=== PATIENT | female | born 1955 | race Caucasian/White ===

== ENCOUNTER 2018-11-16 16:20 | Emergency (ER) | payer MEDICARE ==
[2018-11-16] MEDS ORDERED: BENADRYL 50 MG/ML ONE (16:22)
[2018-11-16] MEDS ORDERED: Sodium Chloride 0.9% 1000 ML 1,000 ML ONE (16:22)
[2018-11-16] MEDS ORDERED: solu-MEDROL 125 MG ONE ×2 (16:22→19:54)
[2018-11-16] MEDS ORDERED: Racepinephrine INH Solution 2.25% IH ONE ×2 (16:23→16:24)
[2018-11-16] MEDS ORDERED: solu-MEDROL 125 MG IV ONE ×2 (16:24→19:45)
[2018-11-16] MEDS ORDERED: Sodium Chloride 3 ML UD NEBULES IH ONE (16:24)
[2018-11-16] MEDS ORDERED: BENADRYL 50 MG/ML IV ONE ×2 (16:24→16:42)
--- NOTE | 2018-11-16 16:28 | ERPHSYRPT ---
- History of Present Illness Source: patient Timing/Duration: today (15 minutes prior to arrival) Severity: moderate Modifying Factors: Improves With: nothing Associated Symptoms: other (tightness in throat), No nausea, No vomiting, No abdominal pain, No shortness of breath, No heartburn, No diaphoresis, No cough, No chills, No chest pain, No fever, No headaches, No loss of appetite, No malaise, No rash, No syncope, No seizure, No weakness Hx Tetanus, Diphtheria Vaccination/Date Given: Yes Hx Influenza Vaccination/Date Given: No Hx Pneumococcal Vaccination/Date Given: No <MAGGI MCDANIEL - Last Filed: 11/16/18 18:58> <ROGERIO NICHOLS - Last Filed: 11/16/18 20:35> - History of Present Illness Time Seen by Provider: 11/16/18 16:25 Physician History: 63-year-old white female with history of diabetes and high blood pressure arrives with complaint of feeling as if she is tightness swelling in her throat symptoms since 15 minutes. Patient states that she recently started amoxicillin last night she began having the above symptoms approximately 15 minutes ago. She has not had any chest pain no nausea no vomiting. Past medical history includes diabetes, high blood pressure.Sarcoidosis, migraines, hypoxia, hyperlipidemia, arthritis, fibromyalgia, diverticulosis, hernia, irritable bowel, anxiety, depression, cervical cancer Past surgical history includes tonsils, hysterectomy,cholecystectomy. Social history patient denies tobacco alcohol or illicit drug use (MAGGI MCDANIEL) Allergies/Adverse Reactions: fluoxetine HCl [From Prozac] Allergy (Intermediate, Verified 11/16/18 16:39) Hives Latex, Natural Rubber Allergy (Mild, Verified 11/16/18 16:39) Hives Home Medications: ARIPiprazole [Aripiprazole] 5 mg DAILY 11/16/18 [History] Atenolol 50 mg DAILY 11/16/18 [History] Duloxetine HCl 60 mg .ROUTE DAILY 11/16/18 [History] Lisinopril 20 mg [Zestril 20 MG] 20 mg DAILY 11/16/18 [History] Oxycodone / APAP 10/325 mg [Oxycodone-Acetaminophen 10-325] 1 ea QID 11/16 [History] Potassium Chloride [Klor-Con M20] 20 meq DAILY 11/16/18 [History] Pregabalin [Lyrica] 300 mg DAILY 11/16/18 [History] Tizanidine HCl 4 mg DAILY 11/16/18 [History] Zolpidem Tartrate 5 mg DAILY 11/16/18 [History] Zolpidem Tartrate 5 mg DAILY 11/16/18 [History] - Review of Systems Constitutional: No Fever, No Chills Eyes: No Symptoms Ears, Nose, & Throat: Throat Swelling Cardiac: No Chest Pain, No Edema, No Syncope Abdominal/Gastrointestinal: No Abdominal Pain, No Nausea, No Vomiting, No Diarrhea Genitourinary Symptoms: No Dysuria Musculoskeletal: No Back Pain, No Neck Pain Skin: No Symptoms Neurological: No Dizziness, No Focal Weakness, No Sensory Changes Psychological: No Symptoms Endocrine: No Symptoms All Other Systems: Reviewed and Negative <MAGGI MCDANIEL - Last Filed: 11/16/18 18:58> - Past Medical History Pertinent Past Medical History: Yes (sarcoidosis, migraine, hypoxia) Neurological History: Migraines ENT History: Other Cardiac History: High Cholesterol, Hypertension Respiratory History: Asthma, Other Musculoskeletal History: Arthritis, Fibromyalgia GI Medical History: Diverticulitis, Hernia, Irritable Bowel Psycho-Social History: Anxiety, Depression Female Reproductive Disorders: Cervical Cancer - Past Surgical History Past Surgical History: Yes Gastrointestinal: Cholecystectomy, Hernia Repair Female Surgical History: Hysterectomy - Social History Smoking Status: Never smoker Exposure to second hand smoke: No Drug Use: none Patient Lives Alone: No <MAGGI MCDANIEL - Last Filed: 11/16/18 18:58> - Physical Exam General Appearance: moderate distress, anxiety Eye Exam: PERRL/EOMI, eyes nml inspection Ears, Nose, Throat Exam: TMs normal, moist mucous membranes, other (mild tongue swelling) Neck Exam: normal inspection, non-tender, supple, full range of motion Respiratory Exam: normal breath sounds, lungs clear, No respiratory distress Cardiovascular Exam: regular rate/rhythm, normal heart sounds, normal peripheral pulses, capillary refill <2 sec Gastrointestinal/Abdomen Exam: soft, normal bowel sounds, No tenderness, No mass Back Exam: normal inspection, normal range of motion, No CVA tenderness, No vertebral tenderness Extremity Exam: normal inspection, normal range of motion, pelvis stable Neurologic Exam: alert, oriented x 3, cooperative, .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 nml as tested, normal mood/affect, nml cerebellar function, nml station & gait, sensation nml, No motor deficits Skin Exam: normal color Lymphatic Exam: No adenopathy SpO2 Interpretation: normal <MAGGI MCDANIEL - Last Filed: 11/16/18 18:58> - Nursing Vital Signs Nursing Vital Signs: Initial Vital Signs O2 Sat by Pulse Oximetry 99 11/16/18 16:29 Pain Scale Pain Intensity 0 Ordered Tests: Active Orders 24 hr Category Date Time Status EKG-ER Only STAT Care 11/16/18 16:32 Active IV Insertion STAT Care 11/16/18 16:24 Active IV Insertion-2nd Peripheral STAT Care 11/16/18 17:16 Active CBC W DIFF Stat Lab 11/16/18 16:36 Completed CMP Stat Lab 11/16/18 16:36 Completed Respiratory Therapy Assessment DAILY RT 11/16/18 16:41 Completed Medication Summary Generic Name Dose Route Start Last Admin Trade Name Freq PRN Reason Stop Dose Admin Sodium Chloride 1,000 mls @ 100 mls/hr 11/16/18 16:30 11/16/18 16:42 Sodium Chloride 0.9% 1000 Ml IV 12/16/18 16:29 100 mls/hr .Q10H ANABELLE Administration Discontinued Medications Generic Name Dose Route Start Last Admin Trade Name Freq PRN Reason Stop Dose Admin Diphenhydramine HCl 25 mg 11/16/18 16:24 11/16/18 16:20 Benadryl 50 Mg/Ml IV 11/16/18 16:25 25 mg STAT ONE Administration Diphenhydramine HCl 25 mg 11/16/18 16:42 11/16/18 16:43 Benadryl 50 Mg/Ml IV 11/16/18 16:43 25 mg STAT ONE Administration Epinephrine Confirm 11/16/18 16:23 Racepinephrine Inh Solution 2.25% Administered 11/16/18 16:24 Dose 0.5 ml IH .STK-MED ONE Epinephrine 0.5 ml 11/16/18 16:24 11/16/18 16:40 Racepinephrine Inh Solution 2.25% IH 11/16/18 16:25 0.5 ml STAT ONE Administration Epinephrine HCl 0.3 mg 11/16/18 17:29 11/16/18 17:37 Epinephrine 1mg/Ml Amp IM 11/16/18 17:30 0.3 mg STAT ONE Administration Epinephrine HCl Confirm 11/16/18 17:31 Epinephrine Abboject 1 Mg Administered 11/16/18 17:32 Dose 1 mg .ROUTE .STK-MED ONE Epinephrine HCl Confirm 11/16/18 17:33 Epinephrine 1mg/Ml Amp Administered 11/16/18 17:34 Dose 1 mg .ROUTE .STK-MED ONE Famotidine 40 mg 11/16/18 20:05 11/16/18 20:13 Pepcid 20 Mg Vial IV 11/16/18 20:06 40 mg STAT ONE Administration Famotidine Confirm 11/16/18 20:12 Pepcid 20 Mg Vial Administered 11/16/18 20:13 Dose 40 mg IV .STK-MED ONE Methylprednisolone Sodium Succinate 125 mg 11/16/18 16:24 11/16/18 16:20 Solu-Medrol 125 Mg IV 11/16/18 16:25 125 mg STAT ONE Administration Methylprednisolone Sodium Succinate 60 mg 11/16/18 19:45 11/16/18 19:58 Solu-Medrol 125 Mg IV 11/16/18 19:46 60 mg STAT ONE Administration Methylprednisolone Sodium Succinate Confirm 11/16/18 19:54 Solu-Medrol 125 Mg Administered 11/16/18 19:55 Dose 125 mg .ROUTE .STK-MED ONE Sodium Chloride Confirm 11/16/18 16:24 Sodium Chloride 3 Ml Ud Nebules Administered 11/16/18 16:25 Dose 3 ml IH .STK-MED ONE Lab/Rad Data: Laboratory Result Diagrams 11/16/18 16:36 11/16/18 16:36 Laboratory Results 11/16/18 11/16/18 Range/Units 16:36 16:36 WBC 6.4 (4.0-10.5) K/mm3 RBC 4.13 (4.1-5.4) M/mm3 Hgb 10.1 L (12.0-16.0) gm/dl Hct 33.0 L (35-47) % MCV 79.9 (78-100) fl MCH 24.4 L (26-32) pg MCHC 30.6 L (32-36) g/dl RDW 17.0 H (11.5-14.0) % Plt Count 257 (150-450) K/mm3 MPV 8.9 (6-9.5) fl Gran % 46.4 (36.0-66.0) % Eos # (Auto) 0.22 (0-0.5) Absolute Lymphs (auto) 2.41 (1.0-4.6) Absolute Monos (auto) 0.75 (0.0-1.3) Lymphocytes % 37.8 (24.0-44.0) % Monocytes % 11.8 (0.0-12.0) % Eosinophils % 3.5 (0.00-5.0) % Basophils % 0.5 (0.0-0.4) % Absolute Granulocytes 2.96 (1.4-6.9) Basophils # 0.03 (0-0.4) Sodium 140 (137-145) mmol/L Potassium 3.4 L (3.5-5.1) mmol/L Chloride 105 (98-107) mmol/L Carbon Dioxide 22 (22-30) mmol/L Anion Gap 16.5 H (5-15) MEQ/L BUN 11 (7-17) mg/dL Creatinine 0.84 (0.52-1.04) mg/dL Estimated GFR > 60.0 ML/MIN Glucose 122 H (74-106) mg/dL Calcium 9.2 (8.4-10.2) mg/dL Total Bilirubin 0.30 (0.2-1.3) mg/dL AST 25 (14-36) U/L ALT 18 (0-35) U/L Alkaline Phosphatase 82 (38-126) U/L Serum Total Protein 7.6 (6.3-8.2) g/dL Albumin 3.7 (3.5-5.0) g/dL - Progress Progress: improved <MAGGI MCDANIEL - Last Filed: 11/16/18 18:58> - Progress Counseled pt/family regarding: lab results, diagnosis, need for follow-up <ROGERIO NICHOLS - Last Filed: 11/16/18 20:35> - Progress Progress Note: 11/16/18 18:42 Patient feeling better after racemic epinephrine treatment, epinephrine treatment,. Solu-Medrol 125 IV and Benadryl 50 mg IV as well as normal saline 100 mL per hour. Patient states she still feels like shows a little swelling in her throat does say she gets out of breath when she gets up to the commode. Patient with normal EKG sinus rhythm 76 beats per minute no acute ST or T wave changes. The patient's CBC white blood cell 6.4 hemoglobin 10.1 hematocrit 33.0 platelets 257 chemistries sodium 140 potassium 3.4 chloride 105 bicarbonate 22 BUN 11 creatinine 0.4 glucose is 122 Will monitor patient longer patient really with clear lung rendon normal EKG and stable vital signs. 11/16/18 18:58 Patient will be turned over to Dr. Nichols secondary to shift change case is discussed with Dr. Nichols. . (MAGGI MCDANIEL) 11/16/18 19:29 pt states she is getting better. family members present in the room and agree she is. she is speaking more clearly. room air oxygen saturation 98%. HR 80, pb 170/85. pt denies cp and soa improved. exam no wheezing or stridor. 11/16/18 20:06 prior to my arrival, pt did not receive h2 aurelio, pepcid, secondary to pt taking daily tizanadine. pt has not taken it in over 24 hours and half life is 2.5 hours. so i will provide pt with a dose of iv pepcid. 11/16/18 20:34 pt states she is ready to go home. she is breathing well, speaking better and swallowing better. no wheezing or stridor on exam. hr 80s, room air o2 sat 98 % (ROGERIO NICHOLS) <MAGGI MCDANIEL - Last Filed: 11/16/18 18:58> - Departure Departure Disposition: Home Critical Care Time: Yes Critical Care Time(excluding separately billable procedures): 30-74 minutes <ROGERIO NICHOLS - Last Filed: 11/16/18 20:35> - Departure Clinical Impression: Allergic reaction caused by a drug Condition: Stable Referrals: CHENCHO STAPLETON [Primary Care Provider] - Additional Instructions: continue over the counter benadryl 25mg orally 3 times daily for 4 days. return to ED if symptoms worsen. stop amoxicillin and stop gabapentin. follow up with primary doctor for further management. stop your tizanidine for 4 days. Prescriptions: Prednisone 10 mg [Deltasone 10 mg] 10 mg PO TID #12 tablet
[2018-11-16] MEDS ORDERED: Sodium Chloride 0.9% 1000 ML 1,000 ML IV SCH (16:30)
[2018-11-16 16:39] LABS: BASOPHIL % 0.5 % (0.0-0.4); Basophil (Absolute #) 0.03 (0-0.4); Eosinophil % 3.5 % (0.00-5.0); Eosinophil (Absolute #) 0.22 (0-0.5); Granulocyte Absolute (ANC) 2.96 (1.4-6.9); Granulocytes % 46.4 % (36.0-66.0); Hemoglobin 10.1 gm/dl (12.0-16.0); Lymphocyte (Absolute #) 2.41 (1.0-4.6); Lymphocytes % 37.8 % (24.0-44.0); Mean Cell Volume 79.9 fl (78-100); Mean Corpuscular Hgb Concent. 30.6 g/dl (32-36); Mean Platelet Volume 8.9 fl (6-9.5); Monocyte (Absolute #) 0.75 (0.0-1.3); Monocytes % 11.8 % (0.0-12.0); Platelet Count 257 K/mm3 (150-450); Red Blood Count 4.13 M/mm3 (4.1-5.4); White Blood Count 6.4 K/mm3 (4.0-10.5)
[2018-11-16 16:42] LABS: Mean Corpuscular Hemoglobin 24.4 pg (26-32)
[2018-11-16 16:51] LABS: ALBUMIN 3.7 g/dL (3.5-5.0); ALKALINE PHOSPHATASE 82 U/L (38-126); ANION GAP 16.5 MEQ/L (5-15); BLOOD UREA NITROGEN 11 mg/dL (7-17); CHLORIDE 105 mmol/L (98-107); Calcium 9.2 mg/dL (8.4-10.2); Carbon Dioxide 22 mmol/L (22-30); Creatinine 1 0.84 mg/dL (0.52-1.04); Glucose 122 mg/dL (74-106); Potassium 3.4 mmol/L (3.5-5.1); SGOT/AST 25 U/L (14-36); SGPT/ALT 18 U/L (0-35); SODIUM 140 mmol/L (137-145); Total Protein 7.6 g/dL (6.3-8.2)
[2018-11-16] MEDS ORDERED: EPINEPHRINE 1MG/ML AMP IM ONE (17:29)
[2018-11-16] MEDS ORDERED: EPINEPHRINE ABBOJECT 1 MG ONE (17:31)
[2018-11-16] MEDS ORDERED: EPINEPHRINE 1MG/ML AMP ONE (17:33)
[2018-11-16] MEDS ORDERED: Pepcid 20 MG VIAL IV ONE ×2 (20:05→20:12)
[2018-11-16 20:20] VITALS: O2SAT 96
[2018-11-16 21:01] VITALS: BP 178/89; PULSE 84
== END 2018-11-16 20:55 | disposition home or self-care (01) ==
LOC: ED 16:20
DX: R07.0 Pain in throat (principal); T36.0X5A Adverse effect of penicillins, initial encounter
CPT/HCPCS: 36000; 36415; 80053; 85025; 93005; 94640; 96360; 96372; 96374; 96375; 96376; 99284; J0171; J1200; J2930

== ENCOUNTER 2019-12-05 12:32 | Emergency (ER) | payer MEDICARE ==
[2019-12-05] MEDS ORDERED: Sodium Chloride 0.9% 1000 ML 1,000 ML IV STA ×3 (12:55→14:07)
[2019-12-05] MEDS ORDERED: BABY ASPIRIN 81 MG CHEW PO ONE (12:55)
[2019-12-05] MEDS ORDERED: BABY ASPIRIN 81 MG CHEW ONE (12:58)
[2019-12-05] MEDS ORDERED: Sodium Chloride 0.9% 1000 ML 1,000 ML ONE ×4 (12:58→15:07)
[2019-12-05 13:21] LABS: Absolute Neutrophil Ct (ANC) 3.99 (1.4-6.9); BASOPHIL % 0.8 % (0.0-0.4); Basophil (Absolute #) 0.06 (0-0.4); Eosinophil % 3.5 % (0.00-5.0); Eosinophil (Absolute #) 0.27 (0-0.5); Hematocrit 35.5 % (35-47); Hemoglobin 10.6 gm/dl (12.0-16.0); Lymphocyte (Absolute #) 2.62 (1.0-4.6); Lymphocytes % 34.4 % (24.0-44.0); Mean Cell Volume 86.2 fl (78-100); Mean Corpuscular Hemoglobin 25.7 pg (26-32); Mean Corpuscular Hgb Concent. 29.9 g/dl (32-36); Mean Platelet Volume 9.5 fl (7.5-11.0); Monocyte (Absolute #) 0.68 (0.0-1.3); Monocytes % 8.9 % (0.0-12.0); Neutrophil % 52.4 % (36.0-66.0); Platelet Count 288 K/mm3 (150-450); Red Blood Count 4.12 M/mm3 (4.1-5.4); Red Cell Distribution Width 16.1 % (11.5-14.0); White Blood Count 7.6 K/mm3 (4.0-10.5)
--- NOTE | 2019-12-05 13:25 | ERPHSYRPT ---
- History of Present Illness Time Seen by Provider: 12/05/19 13:21 Historian: patient Exam Limitations: clinical condition Patient Subjective Stated Complaint: Pt c/o of excessive sweating, pain going up right side of neck, and into the back, pain in right arm, all for the past couple of days Triage Nursing Assessment: Pt brought to the ER by her daughter, hypotensive, bradycardic, hypoxic, pulses weak, pt thought that her sugar was messed up, accucheck 222 upon arrival, pt lethargic, diaphoretic, oxygen went to 84% and was placed on 2L NC and it went to 95%, Physician History: Pt c/o of excessive sweating, pain going up right side of neck, and into the back, pain in right arm, all for the past couple of days. feels very weak and dizzy, also c/o shortness of breath Timing/Duration: day(s) (two days), intermittent Activities at Onset: none Quality: aching Chest Pain Radiation: jaw, neck, back (right side back,) Severity of Pain-Max: moderate Severity of Pain-Current: moderate Modifying Factors: Improves With: nothing Associated Symptoms: shortness of breath, diaphoresis, fatigue, weakness, dizziness, back pain Prior Chest Pain/Cardiac Workup: no prior chest pain Nitro Today/Relief: no nitro taken today Aspirin Treatment Today: no aspirin today Allergies/Adverse Reactions: gabapentin Allergy (Severe, Verified 12/05/19 13:48) fluoxetine HCl [From Prozac] Allergy (Intermediate, Verified 12/05/19 13:18) Hives Latex, Natural Rubber Allergy (Mild, Verified 12/05/19 13:18) Hives Home Medications: ARIPiprazole [Aripiprazole] 5 mg DAILY 11/16/18 [History] Duloxetine HCl 60 mg PO DAILY 11/16/18 [History] Oxycodone / APAP 10/325 mg [Oxycodone-Acetaminophen 10-325] 1 tab PO BID 11/16/18 [History] Tizanidine HCl 4 mg PO DAILY 11/16/18 [History] Albuterol 8 gm Mdi Hfa [Ventolin Hfa MDI] 2 inh PO Q4H 12/05/19 [History] Aspirin EC 81 mg [Ecotrin 81 mg] 81 mg PO DAILY 12/05/19 [History] Atorvastatin Calcium [Lipitor] 40 mg PO DAILY 12/05/19 [History] Buspirone HCl [Buspar] 10 mg PO BID 12/05/19 [History] Dicyclomine HCl 20 mg [Bentyl 20 mg] 20 mg PO TID 12/05/19 [History] Hydroxychloroquine Sulfate 200 mg PO DAILY 12/05/19 [History] Hydroxyzine Pamoate 25 mg PO DAILY 12/05/19 [History] Lisinopril/Hydrochlorothiazide [Lisinopril-Hctz 20-12.5 mg Tab] 1 each PO DAILY 12/05/19 [History] Metformin HCl [Glucophage] 1,000 mg PO BID 12/05/19 [History] Montelukast Sodium 10 mg [Singulair 10 MG] 10 mg PO DAILY 12/05/19 [History] Omeprazole 20 mg PO DAILY 12/05/19 [History] Potassium Chloride [Klor-Con M20] 20 meq PO DAILY 12/05/19 [History] Propranolol HCl [Propranolol HCl ER] 80 mg PO DAILY 12/05/19 [History] Ropinirole HCl [Requip] 0.5 - 1 tab PO DAILY 12/05/19 [History] Topiramate [Topamax] 100 mg PO BID 12/05/19 [History] Trazodone HCl 50 mg [Desyrel 50 mg] 25 mg PO DAILY 12/05/19 [History] Verapamil HCl [Verapamil ER] 120 mg PO DAILY 12/05/19 [History] Hx Tetanus, Diphtheria Vaccination/Date Given: Yes Hx Influenza Vaccination/Date Given: No Hx Pneumococcal Vaccination/Date Given: No Travel Risk - International Travel Have you traveled outside of the country in past 3 weeks: No - Coronavirus Screening Are you exhibiting any of the following symptoms?: No Close contact with a COVID-19 positive Pt in past 14-21 Days: No - Review of Systems Constitutional: Weakness Eyes: No Symptoms Ears, Nose, & Throat: No Symptoms Respiratory: Dyspnea on Exertion (LESLIE) Cardiac: Chest Pain Abdominal/Gastrointestinal: No Symptoms Genitourinary Symptoms: No Symptoms Musculoskeletal: No Symptoms Skin: No Symptoms Neurological: No Symptoms Psychological: No Symptoms Endocrine: No Symptoms - Past Medical History Pertinent Past Medical History: Yes (sarcoidosis, migraine, hypoxia) Neurological History: Migraines ENT History: Other Cardiac History: High Cholesterol, Hypertension Respiratory History: Asthma, Other Musculoskeletal History: Arthritis, Fibromyalgia GI Medical History: Diverticulitis, Hernia, Irritable Bowel Psycho-Social History: Anxiety, Depression Female Reproductive Disorders: Cervical Cancer Other Medical History: lupus - Past Surgical History Past Surgical History: Yes Gastrointestinal: Cholecystectomy, Hernia Repair Female Surgical History: Hysterectomy - Social History Smoking Status: Never smoker Exposure to second hand smoke: No Drug Use: none Patient Lives Alone: Yes - Nursing Vital Signs Nursing Vital Signs: Initial Vital Signs Temperature 98.2 F 12/05/19 12:44 Pulse Rate 49 L 12/05/19 12:44 Blood Pressure 80/40 12/05/19 12:44 O2 Sat by Pulse Oximetry 90 L 12/05/19 12:44 Pain Scale Pain Intensity [] 8 Pain Intensity 10 - Physical Exam General Appearance: moderate distress Eye Exam: PERRL/EOMI Ears, Nose, Throat Exam: normal ENT inspection Neck Exam: normal inspection Respiratory Exam: diminished breath sounds, crackles/rales, rhonchi, wheezing Cardiovascular Exam: regular rate/rhythm, capillary refill 2-3 sec Gastrointestinal/Abdomen Exam: soft Pelvic Exam: not done Rectal Exam: deferred Back Exam: normal inspection Extremity Exam: normal inspection Neurologic Exam: alert, oriented x 3, cooperative, normal mood/affect, sensation nml, No motor deficits, No sensory deficit, No disoriented, No confusion, No agitation, No motor weakness, No facial droop SpO2: 90 - Course Nursing assessment & vital signs reviewed: Yes EKG Interpreted by Me: Sinus Rhythm, Non-specific ST Changes - Radiology Exams Chest X-ray Interpretation: Reviewed by me (cqardiomegaly) Ordered Tests: Active Orders 24 hr Category Date Time Status EKG-ER Only STAT Care 12/05/19 12:57 Active Oxygen-ED Only Nasal Cannula 2 lpm Care 12/05/19 12:55 Active CHEST 1 VIEW (PORTABLE) Stat Exams 12/05/19 12:55 Taken CHEST WITH CONTRAST [CT] Stat Exams 12/05/19 13:45 Ordered ABG [ARTERIAL BLOOD GASES] Stat Lab 12/05/19 13:26 Completed CBC W DIFF Stat Lab 12/05/19 13:00 Completed CMP Stat Lab 12/05/19 13:00 Completed D-DIMER QUANTITATIVE Stat Lab 12/05/19 13:00 Completed NT PRO BNP Stat Lab 12/05/19 13:00 Completed PROTIME WITH INR Stat Lab 12/05/19 13:00 Completed TROPONIN Q3H Lab 12/05/19 13:00 Completed TROPONIN Q3H Lab 12/05/19 16:00 Ordered TROPONIN Q3H Lab 12/05/19 19:00 Ordered TROPONIN Q3H Lab 12/05/19 22:00 Ordered TROPONIN Q3H Lab 12/06/19 01:00 Ordered UA W/RFX UR CULTURE Stat Lab 12/05/19 14:52 Ordered Medication Summary Generic Name Dose Route Start Last Admin Trade Name Freq PRN Reason Stop Dose Admin Sodium Chloride 1,000 mls @ 999 mls/hr 12/05/19 14:07 12/05/19 14:17 Sodium Chloride 0.9% 1000 Ml IV 12/05/19 15:07 Infused .Q1H1M STA Infusion Discontinued Medications Generic Name Dose Route Start Last Admin Trade Name Freq PRN Reason Stop Dose Admin Aspirin 324 mg 12/05/19 12:55 12/05/19 13:00 Baby Aspirin 81 Mg Chew PO 12/05/19 12:56 324 mg STAT ONE Administration Aspirin Confirm 12/05/19 12:58 Baby Aspirin 81 Mg Chew Administered 12/05/19 12:59 Dose 324 mg .ROUTE .STK-MED ONE Enoxaparin Sodium 120 mg 12/05/19 13:45 12/05/19 13:55 Enoxaparin Sodium SQ 12/05/19 13:46 120 mg STAT STA Administration Enoxaparin Sodium Confirm 12/05/19 13:52 Enoxaparin Sodium Administered 12/05/19 13:53 Dose 120 mg SQ .STK-MED ONE Sodium Chloride 1,000 mls @ 999 mls/hr 12/05/19 12:55 12/05/19 14:12 Sodium Chloride 0.9% 1000 Ml IV 12/05/19 13:55 Infused .Q1H1M STA Infusion Sodium Chloride Confirm 12/05/19 12:58 Sodium Chloride 0.9% 1000 Ml Administered 12/05/19 12:59 Dose 1,000 mls @ ud .ROUTE .STK-MED ONE Sodium Chloride 1,000 mls @ 999 mls/hr 12/05/19 13:19 12/05/19 14:18 Sodium Chloride 0.9% 1000 Ml IV 12/05/19 14:19 Infused .Q1H1M STA Infusion Sodium Chloride Confirm 12/05/19 13:19 Sodium Chloride 0.9% 1000 Ml Administered 12/05/19 13:20 Dose 1,000 mls @ ud .ROUTE .STK-MED ONE Sodium Chloride Confirm 12/05/19 14:08 Sodium Chloride 0.9% 1000 Ml Administered 12/05/19 14:09 Dose 1,000 mls @ ud .ROUTE .STK-MED ONE Morphine Sulfate 4 mg 12/05/19 13:27 12/05/19 13:35 Morphine Sulfate 4 Mg Inj IV 12/05/19 13:28 4 mg STAT ONE Administration Morphine Sulfate Confirm 12/05/19 13:33 Morphine Sulfate 4 Mg Inj Administered 12/05/19 13:34 Dose 4 mg .ROUTE .STK-MED ONE Lab/Rad Data: Laboratory Result Diagrams 12/05/19 13:00 12/05/19 13:00 Laboratory Results 12/05/19 12/05/19 12/05/19 Range/Units 13:26 13:00 13:00 WBC (4.0-10.5) K/mm3 RBC (4.1-5.4) M/mm3 Hgb (12.0-16.0) gm/dl Hct (35-47) % MCV (78-100) fl MCH (26-32) pg MCHC (32-36) g/dl RDW (11.5-14.0) % Plt Count (150-450) K/mm3 MPV (7.5-11.0) fl Gran % (36.0-66.0) % Eos # (Auto) (0-0.5) Absolute Lymphs (auto) (1.0-4.6) Absolute Monos (auto) (0.0-1.3) Lymphocytes % (24.0-44.0) % Monocytes % (0.0-12.0) % Eosinophils % (0.00-5.0) % Basophils % (0.0-0.4) % Absolute Granulocytes (1.4-6.9) Basophils # (0-0.4) PT 12.6 H (9.95-12.35) SECONDS INR 1.11 (0.8-3.0) D-Dimer 2109 H* (215-500) ng/mL Puncture Site LEFT RADIAL pCO2 41 (35-45) mmHg pO2 96 (75-100) mmHg Base Excess -3.5 L (-2.0-2.0) O2 Saturation 96.6 (94-100) g/dF ABG pH 7.34 L (7.35-7.45) ABG HCO3 22.1 (22-28) ABG O2 Sat (Measured) 99.2 (95-100) % Deepak Test YES A-a Gradient 81 a/A Ratio 0.54 Hemoglobin 10.0 Carboxyhemoglobin 1.6 (0.0-6.9) % THgb Methemoglobin 1.0 L (1.4-1.5) % Temperature 37.0 C POC O2 Flow Rate 32 % Sodium (137-145) mmol/L Potassium 4.2 (3.5-5.1) mmol/L Chloride (98-107) mmol/L Carbon Dioxide (22-30) mmol/L Anion Gap (5-15) MEQ/L BUN (7-17) mg/dL Creatinine (0.52-1.04) mg/dL Estimated GFR ML/MIN Glucose (74-106) mg/dL Calcium (8.4-10.2) mg/dL Total Bilirubin (0.2-1.3) mg/dL AST (14-36) U/L ALT (0-35) U/L Alkaline Phosphatase (38-126) U/L Troponin I < 0.012 (0.000-0.034) ng/mL NT-Pro-B Natriuret Pep (0-900) pg/mL Serum Total Protein (6.3-8.2) g/dL Albumin (3.5-5.0) g/dL 12/05/19 12/05/19 Range/Units 13:00 13:00 WBC 7.6 (4.0-10.5) K/mm3 RBC 4.12 (4.1-5.4) M/mm3 Hgb 10.6 L (12.0-16.0) gm/dl Hct 35.5 (35-47) % MCV 86.2 (78-100) fl MCH 25.7 L (26-32) pg MCHC 29.9 L (32-36) g/dl RDW 16.1 H (11.5-14.0) % Plt Count 288 (150-450) K/mm3 MPV 9.5 (7.5-11.0) fl Gran % 52.4 (36.0-66.0) % Eos # (Auto) 0.27 (0-0.5) Absolute Lymphs (auto) 2.62 (1.0-4.6) Absolute Monos (auto) 0.68 (0.0-1.3) Lymphocytes % 34.4 (24.0-44.0) % Monocytes % 8.9 (0.0-12.0) % Eosinophils % 3.5 (0.00-5.0) % Basophils % 0.8 (0.0-0.4) % Absolute Granulocytes 3.99 (1.4-6.9) Basophils # 0.06 (0-0.4) PT (9.95-12.35) SECONDS INR (0.8-3.0) D-Dimer (215-500) ng/mL Puncture Site pCO2 (35-45) mmHg pO2 (75-100) mmHg Base Excess (-2.0-2.0) O2 Saturation (94-100) g/dF ABG pH (7.35-7.45) ABG HCO3 (22-28) ABG O2 Sat (Measured) (95-100) % Deepak Test A-a Gradient a/A Ratio Hemoglobin Carboxyhemoglobin (0.0-6.9) % THgb Methemoglobin (1.4-1.5) % Temperature C POC O2 Flow Rate % Sodium 138 (137-145) mmol/L Potassium 4.7 (3.5-5.1) mmol/L Chloride 102 (98-107) mmol/L Carbon Dioxide 22 (22-30) mmol/L Anion Gap 18.0 H (5-15) MEQ/L BUN 17 (7-17) mg/dL Creatinine 1.55 H (0.52-1.04) mg/dL Estimated GFR 35.8 ML/MIN Glucose 186 H (74-106) mg/dL Calcium 9.4 (8.4-10.2) mg/dL Total Bilirubin 0.40 (0.2-1.3) mg/dL AST 33 (14-36) U/L ALT 16 (0-35) U/L Alkaline Phosphatase 96 (38-126) U/L Troponin I (0.000-0.034) ng/mL NT-Pro-B Natriuret Pep 117 (0-900) pg/mL Serum Total Protein 7.8 (6.3-8.2) g/dL Albumin 4.3 (3.5-5.0) g/dL - Progress Progress: unchanged Air Movement: fair Blood Culture(s) Obtained: No Antibiotics given: No Discussed with Dr.: Other (ER Physician at [facility]) - Departure Departure Disposition: Transfer ([facility]) Clinical Impression: Acute renal failure (ARF) Qualifiers: Acute renal failure type: unspecified Qualified Code(s): N17.9 - Acute kidney failure, unspecified Hypotension arterial Qualifiers: Hypotension type: unspecified hypotension type Qualified Code(s): I95.9 - Hypotension, unspecified Condition: Fair Critical Care Time: Yes Critical Care Time(excluding separately billable procedures): Critical 30-74 mins Referrals: NEHAL SMITH NP [Primary Care Provider] -
[2019-12-05] MEDS ORDERED: MORPHINE SULFATE 4 MG INJ IV ONE (13:27)
[2019-12-05 13:28] LABS: A-aADO2 81; ABG POTASSIUM 4.2 (3.5-5.1); ABG SITE LEFT RADIAL; ALLEN TEST OK? YES; ARTERIAL BLD GAS O2 SATURATION 99.2 % (95-100); ARTERIAL BLOOD GAS BASE EXCESS -3.5 (-2.0-2.0); ARTERIAL BLOOD GAS FIO2 32 %; ARTERIAL BLOOD GAS PCO2 41 mmHg (35-45); ARTERIAL BLOOD GAS PO2 96 mmHg (75-100); ARTERIAL BLOOD GAS pH 7.34 (7.35-7.45); CARBOXYHEMOGLOBIN 1.6 % THgb (0.0-6.9); HCO3- 22.1 (22-28); HGB O2 SAT 96.6 g/dF (94-100); paO2 pAO1 0.54
[2019-12-05 13:29] LABS: INR 1.11 (0.8-3.0); PROTIME 12.6 SECONDS (9.95-12.35)
[2019-12-05] MEDS ORDERED: MORPHINE SULFATE 4 MG INJ ONE (13:33)
[2019-12-05 13:42] LABS: ALBUMIN 4.3 g/dL (3.5-5.0); BILIRUBIN,TOTAL 0.4 mg/dL (0.2-1.3); Calcium 9.4 mg/dL (8.4-10.2); Creatinine 1 1.55 mg/dL (0.52-1.04); Potassium 4.7 mmol/L (3.5-5.1); Total Protein 7.8 g/dL (6.3-8.2)
[2019-12-05] MEDS ORDERED: ENOXAPARIN SODIUM SQ STA (13:45)
[2019-12-05] MEDS ORDERED: ENOXAPARIN SODIUM SQ ONE (13:52)
[2019-12-05 14:21] VITALS: BP 78/47; PULSE 55
[2019-12-05 14:40] VITALS: O2SAT 90
[2019-12-05 14:58] LABS: Appearance SLIGHTLY CLOUDY (CLEAR); Bilirubin NEGATIVE (NEGATIVE); Blood NEGATIVE Ery/ul (0-5); Glucose NEGATIVE (NEGATIVE); Ketones NEGATIVE (NEGATIVE); Leukocyte Esterase NEGATIVE (NEGATIVE); Mucus SLIGHT /HPF (NEGATIVE); Nitrite NEGATIVE (NEGATIVE); Protein,Urine Dip NEGATIVE (Negative); Specific Gravity 1.012 (1.005-1.025); Urobilinogen NEGATIVE mg/dL (0-1); WBC 0-2 /HPF (0-5)
--- NOTE | 2019-12-05 19:57 | XRAY ---
Indication: Chest pain and short of breath. Comparison: July 30, 2019. Portable chest slightly less inflated with new cardiomegaly. No focal infiltrate, consolidation, or large effusion. Bony thorax intact.
== END 2019-12-05 15:25 | disposition short-term general hospital (02) ==
LOC: ED 12:32
DX: N17.9 Acute kidney failure, unspecified (principal); I95.9 Hypotension, unspecified; Z79.899 Other long term (current) drug therapy; R07.89 Other chest pain; E78.00 Pure hypercholesterolemia, unspecified; I10 Essential (primary) hypertension
CPT/HCPCS: 80053; 81001; 82375; 82803; 83880; 84484; 85025; 85379; 85610; 93005; 93041; 96360; 96361; 96372; 96374; 99291; U0003; 36415; 36600; 71045; 99285; J1650; J2270; A9270-GY

== ENCOUNTER 2020-04-10 12:07 | Emergency (ER) | payer MEDICARE ==
[2020-04-10] MEDS ORDERED: BENADRYL 50 MG/ML IV ONE (12:26)
[2020-04-10] MEDS ORDERED: Reglan 10 MG/2 ML IV ONE (12:26)
[2020-04-10] MEDS ORDERED: TYLENOL 325 MG PO ONE (12:26)
[2020-04-10] MEDS ORDERED: TYLENOL 325 MG ONE (12:30)
[2020-04-10] MEDS ORDERED: Reglan 10 MG/2 ML ONE (12:30)
[2020-04-10] MEDS ORDERED: BENADRYL 50 MG/ML ONE (12:30)
--- NOTE | 2020-04-10 12:40 | ERPHSYRPT ---
- History of Present Illness Time Seen by Provider: 04/10/20 12:12 Source: patient Exam Limitations: no limitations Patient Subjective Stated Complaint: pt here for headache that started today, she states this is her normal headache. nausea, no vomiting Triage Nursing Assessment: pt alert, walked in, face mask in place, restless, moaning, skin w/d/p. Physician History: 64 years old female with multiple medical problems presented in the ER with chief complaint of frontal headache which woke her up from sleep this morning, continuous, moderate to severe intensity, sharp in nature, without any significant aggravating or relieving factors, not associated with any nausea or vomiting. Denies any blurry vision, numbness tingling weakness or difficulty speech. Headache is similar to previous episodes. Patient reports she takes monthly shots to prevent her headache but because of insurance issues could not get it this month. Her blood pressure is elevated 215 systolic but reports it is usually elevated every time she has a headache. Denies any chest pain palpitations or shortness of breath. No abdominal pain nausea or vomiting. No fever chills or difficulty movements of neck. Timing/Duration: today, sudden, worse Quality: sharpness Head Pain Location: frontal Severity of Pain-Max: moderate Severity of Pain-Current: moderate Recent Head Trauma: no recent headache/trauma, frequent headaches Associated Symptoms: denies symptoms Previous symptoms: same symptoms as today Allergies/Adverse Reactions: gabapentin Allergy (Severe, Verified 04/10/20 12:17) fluoxetine HCl [From Prozac] Allergy (Intermediate, Verified 04/10/20 12:17) Hives Latex, Natural Rubber Allergy (Mild, Verified 04/10/20 12:17) Hives Home Medications: ARIPiprazole [Aripiprazole] 5 mg DAILY 11/16/18 [History] Duloxetine HCl 60 mg PO DAILY 11/16/18 [History] Oxycodone / APAP 10/325 mg [Oxycodone-Acetaminophen 10-325] 1 tab PO BID 11/16/18 [History] Tizanidine HCl 4 mg PO DAILY 11/16/18 [History] Albuterol 8 gm Mdi Hfa [Ventolin Hfa MDI] 2 inh PO Q4H 12/05/19 [History] Aspirin EC 81 mg [Ecotrin 81 mg] 81 mg PO DAILY 12/05/19 [History] Atorvastatin Calcium [Lipitor] 40 mg PO DAILY 12/05/19 [History] Buspirone HCl [Buspar] 10 mg PO BID 12/05/19 [History] Dicyclomine HCl 20 mg [Bentyl 20 mg] 20 mg PO TID 12/05/19 [History] Hydroxychloroquine Sulfate 200 mg PO DAILY 12/05/19 [History] Hydroxyzine Pamoate 25 mg PO DAILY 12/05/19 [History] Lisinopril/Hydrochlorothiazide [Lisinopril-Hctz 20-12.5 mg Tab] 1 each PO DAILY 12/05/19 [History] Metformin HCl [Glucophage] 1,000 mg PO BID 12/05/19 [History] Montelukast Sodium 10 mg [Singulair 10 MG] 10 mg PO DAILY 12/05/19 [History] Omeprazole 20 mg PO DAILY 12/05/19 [History] Propranolol HCl [Propranolol HCl ER] 80 mg PO DAILY 12/05/19 [History] Ropinirole HCl [Requip] 0.5 - 1 tab PO DAILY 12/05/19 [History] Topiramate [Topamax] 100 mg PO BID 12/05/19 [History] Trazodone HCl 50 mg [Desyrel 50 mg] 25 mg PO DAILY 12/05/19 [History] Verapamil HCl [Verapamil ER] 120 mg PO DAILY 12/05/19 [History] Hx Tetanus, Diphtheria Vaccination/Date Given: Yes Hx Influenza Vaccination/Date Given: Yes Hx Pneumococcal Vaccination/Date Given: Yes Immunizations Up to Date: Yes Travel Risk - International Travel Have you traveled outside of the country in past 3 weeks: No - Coronavirus Screening Are you exhibiting any of the following symptoms?: No Close contact with a COVID-19 positive Pt in past 14-21 Days: No - Review of Systems Constitutional: No Symptoms Eyes: No Symptoms Ears, Nose, & Throat: No Symptoms Respiratory: No Symptoms Cardiac: No Symptoms Abdominal/Gastrointestinal: No Symptoms Genitourinary Symptoms: No Symptoms Musculoskeletal: No Joint Redness Skin: No Symptoms Neurological: Headache Psychological: No Symptoms Endocrine: No Symptoms Hematologic/Lymphatic: No Symptoms Immunological/Allergic: No Symptoms - Past Medical History Pertinent Past Medical History: Yes (sarcoidosis, migraine, hypoxia) Neurological History: Migraines, Peripheral Neuropathy ENT History: Other Cardiac History: High Cholesterol, Hypertension, Myocardial Infarction ([place]) Respiratory History: Other Endocrine Medical History: Diabetes Type II, Liver Disease Musculoskeletal History: Arthritis, Fibromyalgia, Osteoarthritis GI Medical History: Diverticulitis, Hernia, Irritable Bowel Psycho-Social History: Anxiety, Depression Female Reproductive Disorders: Cervical Cancer Other Medical History: HX OF CERVICAL CANCER (TREATED VIA SURGERY). HX OF LUNG DISEASE (SEES DR. SHELBY) - REPORTS HAS INCREASED PRESSUE IN THE LUNGS. STATES [place] WAS "DRUG INDUCED" AFTER SURGERY. GERD, HX OF STOMACH ULCER. ANXIETY, DEPRESSION. SEES DR. KEIKO SON FOR MEDICATION FOR CHRONIC PAIN. - Past Surgical History Past Surgical History: Yes Gastrointestinal: Cholecystectomy, Hernia Repair Female Surgical History: Hysterectomy - Social History Smoking Status: Never smoker Exposure to second hand smoke: Yes Drug Use: none Patient Lives Alone: Yes - Female History Hx Last Menstrual Period: post Hx Now: No - Nursing Vital Signs Nursing Vital Signs: Initial Vital Signs Temperature 98.3 F 04/10/20 12:12 Pulse Rate 83 04/10/20 12:12 Respiratory Rate 18 04/10/20 12:12 Blood Pressure 215/94 04/10/20 12:12 O2 Sat by Pulse Oximetry 96 04/10/20 12:12 Pain Scale Pain Intensity 4 - Physical Exam General Appearance: no apparent distress, alert Eye Exam: PERRL/EOMI, eyes nml inspection Ears, Nose, Throat Exam: normal ENT inspection, TMs normal, pharynx normal Neck Exam: normal inspection, non-tender, supple, full range of motion Respiratory Exam: normal breath sounds, lungs clear Cardiovascular Exam: regular rate/rhythm, normal heart sounds Gastrointestinal/Abdominal Exam: soft, normal bowel sounds, No tenderness Back Exam: No CVA tenderness Extremity Exam: normal inspection, normal range of motion Mental Status Exam: alert, oriented x 3, cooperative counselor aide Exam: normal hearing, normal speech, PERRL Coordination/Gait Exam: normal finger to nose, normal gait Motor/Sensory Exam: no motor deficit, no sensory deficit, no pronator drift, negative Babinski's sign DTR Exam: bicep (R): 2+, bicep (L): 2+, knee (R): 2+, knee (L): 2+ Skin Exam: normal color SpO2 Interpretation: normal SpO2: 96 O2 Delivery: Room Air Ordered Tests: Active Orders 24 hr Category Date Time Status IV Insertion STAT Care 04/10/20 12:26 Active HEAD WITHOUT CONTRAST [CT] Stat Exams 04/10/20 12:44 Taken Medication Summary Discontinued Medications Generic Name Dose Route Start Last Admin Trade Name Valeria PRN Reason Stop Dose Admin Acetaminophen 975 mg 04/10/20 12:26 04/10/20 12:33 Tylenol 325 Mg PO 04/10/20 12:27 975 mg STAT ONE Administration Acetaminophen Confirm 04/10/20 12:30 Tylenol 325 Mg Administered 04/10/20 12:31 Dose 975 mg .ROUTE .STK-MED ONE Diphenhydramine HCl 25 mg 04/10/20 12:26 04/10/20 12:33 Benadryl 50 Mg/Ml IV 04/10/20 12:27 25 mg STAT ONE Administration Diphenhydramine HCl Confirm 04/10/20 12:30 Benadryl 50 Mg/Ml Administered 04/10/20 12:31 Dose 50 mg .ROUTE .STK-MED ONE Ketorolac Tromethamine 15 mg 04/10/20 12:58 04/10/20 13:00 Toradol 30 Mg Injection IV 04/10/20 12:59 15 mg STAT ONE Administration Ketorolac Tromethamine Confirm 04/10/20 12:59 Toradol 30 Mg Injection Administered 04/10/20 13:00 Dose 30 mg .ROUTE .STK-MED ONE Ketorolac Tromethamine 30 mg 04/10/20 13:42 04/10/20 13:48 Toradol 30 Mg Injection IM 04/10/20 13:43 Not Given STAT ONE Ketorolac Tromethamine Confirm 04/10/20 13:47 Toradol 30 Mg Injection Administered 04/10/20 13:48 Dose 30 mg .ROUTE .STK-MED ONE Ketorolac Tromethamine 15 mg 04/10/20 13:48 04/10/20 13:51 Toradol 30 Mg Injection IV 04/10/20 13:49 15 mg STAT ONE Administration Metoclopramide HCl 10 mg 04/10/20 12:26 04/10/20 12:33 Reglan 10 Mg/2 Ml IV 04/10/20 12:27 10 mg STAT ONE Administration Metoclopramide HCl Confirm 04/10/20 12:30 Reglan 10 Mg/2 Ml Administered 04/10/20 12:31 Dose 10 mg .ROUTE .STK-MED ONE Morphine Sulfate 4 mg 04/10/20 13:17 04/10/20 13:22 Morphine Sulfate 4 Mg Inj IV 04/10/20 13:18 4 mg STAT ONE Administration Morphine Sulfate Confirm 04/10/20 13:21 Morphine Sulfate 4 Mg Inj Administered 04/10/20 13:22 Dose 4 mg .ROUTE .STK-MED ONE Morphine Sulfate 2 mg 04/10/20 13:42 04/10/20 13:51 Morphine Sulfate 2 Mg Inj IV 04/10/20 13:43 2 mg STAT ONE Administration Morphine Sulfate Confirm 04/10/20 13:48 Morphine Sulfate 2 Mg Inj Administered 04/10/20 13:49 Dose 2 mg .ROUTE .STK-MED ONE - Progress Progress: improved, re-examined Air Movement: good Progress Note: 04/10/20 14:25 64 years old with multiple medical problems including hypertension is evaluated for headache since morning. Headache is similar to previous with nonfocal neuro exam. No chest pain palpitations or shortness of breath but her blood pressure was in 215 systolic. She is given migraine cocktail and have obtained CT head which is negative. Her blood pressure improved after given migraine cocktail and I believe it was secondary to her headache. She has a nonfocal neuro exam throughout her stay in the ER. Patient is feeling better on reevaluation and wants to go home. I do not think patient needs any other work-up and is stable for discharge with outpatient follow-up with her primary care/neurologist for reevaluation and further management. Counseled pt/family regarding: diagnosis, need for follow-up, rad results - Departure Departure Disposition: Home Clinical Impression: Migraine Qualifiers: Migraine type: without aura Status migrainosus presence: without status migrainosus Intractability: not intractable Qualified Code(s): G43.009 - Migraine without aura, not intractable, without status migrainosus Condition: Stable Critical Care Time: No Referrals: BREDEWEG,NEHAL L., DISTRICT ENGINEER [Primary Care Provider] - (1-2 days for reevaluation) Instructions: Headache, Adult (DC) Additional Instructions: Take Tylenol along with Topamax as needed. Follow-up with your primary care/neurologist for reevaluation. Return to ER for worsening headache, visual disturbance, numbness tingling weakness or difficulty speech etc.
[2020-04-10] MEDS ORDERED: TORAdol 30 mg Injection IV ONE ×2 (12:58→13:48)
[2020-04-10] MEDS ORDERED: TORAdol 30 mg Injection ONE ×2 (12:59→13:47)
[2020-04-10] MEDS ORDERED: MORPHINE SULFATE 4 MG INJ IV ONE (13:17)
[2020-04-10] MEDS ORDERED: MORPHINE SULFATE 4 MG INJ ONE (13:21)
[2020-04-10] MEDS ORDERED: TORAdol 30 mg Injection IM ONE (13:42)
[2020-04-10] MEDS ORDERED: MORPHINE SULFATE 2 MG INJ IV ONE (13:42)
[2020-04-10] MEDS ORDERED: MORPHINE SULFATE 2 MG INJ ONE (13:48)
[2020-04-10 14:41] VITALS: BP 187/92; PULSE 57; O2SAT 98
--- NOTE | 2020-04-10 18:56 | XRAY ---
Indication: Frontal headache. Blood pressure. Multiple contiguous axial images obtained through the head without contrast. Comparison: December 16, 2012. Age-appropriate global atrophy and minimal periventricular degenerative micro-ischemia. No acute intracranial hemorrhage, abnormal extra-axial fluid collection, or mass effect. Fourth ventricle is midline without hydrocephalus. Bony calvarium intact. Visualized paranasal sinuses and mastoid air cells are clear. Impression: Nonacute senile brain. Comment: Preliminary interpretation was made by [facility]. No critical discrepancy.
== END 2020-04-10 14:40 | disposition home or self-care (01) ==
LOC: ED 12:07
DX: G43.909 Migraine, unspecified, not intractable, without status migrainosus (principal); Z79.899 Other long term (current) drug therapy; I10 Essential (primary) hypertension; E11.9 Type 2 diabetes mellitus without complications; K76.9 Liver disease, unspecified; D86.9 Sarcoidosis, unspecified; F41.9 Anxiety disorder, unspecified; Z85.41 Personal history of malignant neoplasm of cervix uteri
CPT/HCPCS: 36000; 70450; 96374; 96375; 96376; 99284; J1200; J1885; J2270; A9270-GY

== ENCOUNTER 2020-04-11 12:24 | Emergency (ER) | payer MEDICARE ==
--- NOTE | 2020-04-11 12:28 | ERPHSYRPT ---
- History of Present Illness Time Seen by Provider: 04/11/20 12:28 Source: patient Exam Limitations: no limitations Physician History: This is a 64-year-old white female who has a history of migraine headaches and sees Dr. Puentes a pain specialist as well as a neurologist. Patient has a medication that is helpful for her that she gets as an injection once a month. However that is pending preapproval this month and it has not yet been approved. Patient was seen yesterday in this emergency department and underwent a CAT scan of the head which shows senile brain without evidence of any acute intracranial abnormality. Patient did not hit her head. She has had no fevers she has no neck pain. She has no flulike symptoms. The medication regimen that was provided her yesterday helped her symptoms but did not completely relieve them and the pain recurred this morning. Patient called her primary care provider and they told her to come to the emergency department. Patient has oxycodone at home and that is not helping her migraine. Again, she states this is her typical severe migraine that she gets on occasion. Timing/Duration: today Quality: aching, pressure, throbbing Head Pain Location: frontal Severity of Pain-Max: moderate Severity of Pain-Current: moderate Recent Head Trauma: no recent headache/trauma, frequent headaches Associated Symptoms: sensitive to light, No fever/chills, No loss of consciousness, No stiff neck, No vision changes, No visual disturbance Previous symptoms: same symptoms as today, recently seen Allergies/Adverse Reactions: gabapentin Allergy (Severe, Verified 04/11/20 12:44) fluoxetine HCl [From Prozac] Allergy (Intermediate, Verified 04/11/20 12:44) Hives Latex, Natural Rubber Allergy (Mild, Verified 04/11/20 12:44) Hives Home Medications: ARIPiprazole [Aripiprazole] 5 mg DAILY 11/16/18 [History] Duloxetine HCl 60 mg PO DAILY 11/16/18 [History] Oxycodone / APAP 10/325 mg [Oxycodone-Acetaminophen 10-325] 1 tab PO BID 11/16/18 [History] Tizanidine HCl 4 mg PO DAILY 11/16/18 [History] Albuterol 8 gm Mdi Hfa [Ventolin Hfa MDI] 2 inh PO Q4H 12/05/19 [History] Aspirin EC 81 mg [Ecotrin 81 mg] 81 mg PO DAILY 12/05/19 [History] Atorvastatin Calcium [Lipitor] 40 mg PO DAILY 12/05/19 [History] Buspirone HCl [Buspar] 10 mg PO BID 12/05/19 [History] Dicyclomine HCl 20 mg [Bentyl 20 mg] 20 mg PO TID 12/05/19 [History] Hydroxychloroquine Sulfate 200 mg PO DAILY 12/05/19 [History] Hydroxyzine Pamoate 25 mg PO DAILY 12/05/19 [History] Lisinopril/Hydrochlorothiazide [Lisinopril-Hctz 20-12.5 mg Tab] 1 each PO DAILY 12/05/19 [History] Metformin HCl [Glucophage] 1,000 mg PO BID 12/05/19 [History] Montelukast Sodium 10 mg [Singulair 10 MG] 10 mg PO DAILY 12/05/19 [History] Omeprazole 20 mg PO DAILY 12/05/19 [History] Propranolol HCl [Propranolol HCl ER] 80 mg PO DAILY 12/05/19 [History] Ropinirole HCl [Requip] 0.5 - 1 tab PO DAILY 12/05/19 [History] Topiramate [Topamax] 100 mg PO BID 12/05/19 [History] Trazodone HCl 50 mg [Desyrel 50 mg] 25 mg PO DAILY 12/05/19 [History] Verapamil HCl [Verapamil ER] 120 mg PO DAILY 12/05/19 [History] Hx Tetanus, Diphtheria Vaccination/Date Given: Yes Hx Influenza Vaccination/Date Given: Yes Hx Pneumococcal Vaccination/Date Given: Yes Travel Risk - International Travel Have you traveled outside of the country in past 3 weeks: No - Coronavirus Screening Are you exhibiting any of the following symptoms?: No Close contact with a COVID-19 positive Pt in past 14-21 Days: No - Review of Systems Constitutional: No Symptoms Eyes: No Symptoms Ears, Nose, & Throat: No Symptoms Respiratory: No Symptoms Cardiac: No Symptoms Abdominal/Gastrointestinal: No Symptoms Genitourinary Symptoms: No Symptoms Musculoskeletal: No Symptoms Skin: No Symptoms Neurological: Headache Psychological: No Symptoms Endocrine: No Symptoms Hematologic/Lymphatic: No Symptoms Immunological/Allergic: No Symptoms All Other Systems: Reviewed and Negative - Past Medical History Pertinent Past Medical History: Yes (sarcoidosis, migraine, hypoxia) Neurological History: Migraines, Peripheral Neuropathy ENT History: Other Cardiac History: High Cholesterol, Hypertension, Myocardial Infarction ([place]) Respiratory History: Other Endocrine Medical History: Diabetes Type II, Liver Disease Musculoskeletal History: Arthritis, Fibromyalgia, Osteoarthritis GI Medical History: Diverticulitis, Hernia, Irritable Bowel Psycho-Social History: Anxiety, Depression Female Reproductive Disorders: Cervical Cancer Other Medical History: HX OF CERVICAL CANCER (TREATED VIA SURGERY). HX OF LUNG DISEASE (SEES DR. SHELBY) - REPORTS HAS INCREASED PRESSUE IN THE LUNGS. STATES [place] WAS "DRUG INDUCED" AFTER SURGERY. GERD, HX OF STOMACH ULCER. ANXIETY, DEPRESSION. SEES DR. KEIKO SON FOR MEDICATION FOR CHRONIC PAIN. - Past Surgical History Past Surgical History: Yes Gastrointestinal: Cholecystectomy, Hernia Repair Genitourinary: No Pertinent History Musculoskeletal: No Pertinent History Female Surgical History: Hysterectomy - Social History Smoking Status: Never smoker Exposure to second hand smoke: Yes Drug Use: none Patient Lives Alone: Yes - Nursing Vital Signs Nursing Vital Signs: Initial Vital Signs Temperature 98.2 F 04/11/20 12:30 Pulse Rate 68 04/11/20 12:30 Respiratory Rate 18 04/11/20 12:30 Blood Pressure 142/67 04/11/20 12:30 O2 Sat by Pulse Oximetry 98 04/11/20 12:30 Pain Scale Pain Intensity 8 - Physical Exam General Appearance: mild distress, alert, anxiety, obese Eye Exam: PERRL/EOMI, eyes nml inspection Ears, Nose, Throat Exam: normal ENT inspection, moist mucous membranes Neck Exam: normal inspection, non-tender, supple, full range of motion Respiratory Exam: normal breath sounds, lungs clear, airway intact, No chest tenderness, No respiratory distress Cardiovascular Exam: regular rate/rhythm, normal heart sounds, normal peripheral pulses Gastrointestinal/Abdominal Exam: soft, normal bowel sounds, No tenderness Back Exam: normal inspection, normal range of motion, No CVA tenderness, No vertebral tenderness Extremity Exam: normal inspection, normal range of motion, pelvis stable Mental Status Exam: alert, oriented x 3, cooperative gear shaper Exam: normal hearing, normal speech, PERRL Coordination/Gait Exam: normal finger to nose, normal gait, normal cerebellar function Motor/Sensory Exam: no motor deficit, no sensory deficit, no pronator drift Skin Exam: normal color, warm, dry Lymphatic Exam: No adenopathy SpO2 Interpretation: normal O2 Delivery: Room Air - Course Nursing assessment & vital signs reviewed: Yes - Progress Progress: improved Air Movement: good Blood Culture(s) Obtained: No Antibiotics given: No Counseled pt/family regarding: diagnosis, need for follow-up - Departure Departure Disposition: Home Clinical Impression: Migraine headache Condition: Stable Critical Care Time: No Referrals: NEHAL SMITH NP [Primary Care Provider] - Additional Instructions: Follow-up with your neurologist, primary care provider, and your pain specialist today to make arrangements for appointments and further management of your migraine headaches
[2020-04-11] MEDS ORDERED: TORAdol 30 mg Injection IM ONE (13:21)
[2020-04-11] MEDS ORDERED: Phenergan 25 MG INJ IM ONE (13:21)
[2020-04-11] MEDS ORDERED: Hydromorphone 1 mg/ml Injection IM ONE (13:21)
[2020-04-11] MEDS ORDERED: Phenergan 25 MG INJ ONE (13:50)
[2020-04-11] MEDS ORDERED: TORAdol 30 mg Injection ONE (13:50)
[2020-04-11] MEDS ORDERED: Hydromorphone 1 mg/ml Injection ONE (13:50)
[2020-04-11] MEDS ORDERED: Ativan 2 MG/1 ML VIAL IM ONE (14:50)
[2020-04-11] MEDS ORDERED: Ativan 1 MG PO ONE (14:58)
[2020-04-11] MEDS ORDERED: Ativan 1 MG ONE (15:00)
[2020-04-11 15:11] VITALS: BP 128/58; PULSE 62; O2SAT 97
== END 2020-04-11 15:10 | disposition home or self-care (01) ==
LOC: ED 12:24
DX: G43.909 Migraine, unspecified, not intractable, without status migrainosus (principal); I10 Essential (primary) hypertension; G62.9 Polyneuropathy, unspecified; E11.9 Type 2 diabetes mellitus without complications; F41.9 Anxiety disorder, unspecified; F32.9 Major depressive disorder, single episode, unspecified; Z79.4 Long term (current) use of insulin; Z79.899 Other long term (current) drug therapy; I25.2 Old myocardial infarction; K76.9 Liver disease, unspecified; Z85.41 Personal history of malignant neoplasm of cervix uteri
CPT/HCPCS: 96372; 99284; J1170; J1885; J2550; A9270-GY

== ENCOUNTER 2020-09-06 12:54 | Observation (INO) | payer MEDICARE ==
[2020-09-06] MEDS ORDERED: TORAdol 30 mg Injection IV ONE (13:20)
[2020-09-06] MEDS ORDERED: Compazine 10 MG/2 ML IV ONE (13:22)
--- NOTE | 2020-09-06 14:04 | ERPHSYRPT ---
- History of Present Illness Time Seen by Provider: 09/06/20 13:10 Source: patient Exam Limitations: no limitations Patient Subjective Stated Complaint: Headache Triage Nursing Assessment: Patient ambulated back to ED and transferred self to bed. Patient A+O X3. Patient's skin pink, warm and dry. Patient complains of headache constant aching pain 11/19 since Saturday. Patient has hx of migraines and has taken all meds she has prescribed for migraines with no relief. Physician History: Patient is a 65-year-old female with a history of migraine headache presents to our ED with the same. Headache is primarily frontal patient's headache started 3 days ago. Patient has taken all her usual medications. Patient's migraine is the same as her previous headaches. Patient declined a CT scan. Patient is asking for relief. No associated numbness tingling weakness. No nausea or vomiting. No blurred vision. Patient's headache is global. No focal or lateralizing symptoms. Patient denies fever no neck pain no photophobia no meningeal signs. Patient voices no other complaints or concerns at this time. Timing/Duration: day(s) (3 days ago) Quality: aching Head Pain Location: frontal Severity of Pain-Max: moderate Severity of Pain-Current: mild Recent Head Trauma: no recent headache/trauma Modifying Factors: Improves With: exposure to light, noise Associated Symptoms: No confusion, No dizziness, No facial pain, No fever/chills, No light-headedness, No nasal congestion, No numbness in legs/feet, No rash, No sweating, No scotoma, No seizures, No sensitive to light, No speech problems, No trouble walking, No vision changes, No visual disturbance Previous symptoms: same symptoms as today Allergies/Adverse Reactions: gabapentin Allergy (Severe, Verified 09/06/20 13:04) fluoxetine HCl [From Prozac] Allergy (Intermediate, Verified 09/06/20 13:04) Hives Latex, Natural Rubber Allergy (Mild, Verified 09/06/20 13:04) Hives Home Medications: ARIPiprazole [Aripiprazole] 5 mg DAILY 11/16/18 [History] Duloxetine HCl 60 mg PO DAILY 11/16/18 [History] Oxycodone / APAP 10/325 mg [Oxycodone-Acetaminophen 10-325] 1 tab PO BID 11/16/18 [History] Tizanidine HCl 4 mg PO DAILY 11/16/18 [History] Albuterol 8 gm Mdi Hfa [Ventolin Hfa MDI] 2 inh PO Q4H 12/05/19 [History] Aspirin EC 81 mg [Ecotrin 81 mg] 81 mg PO DAILY 12/05/19 [History] Atorvastatin Calcium [Lipitor] 40 mg PO DAILY 12/05/19 [History] Buspirone HCl [Buspar] 10 mg PO BID 12/05/19 [History] Dicyclomine HCl 20 mg [Bentyl 20 mg] 20 mg PO TID 12/05/19 [History] Hydroxychloroquine Sulfate 200 mg PO DAILY 12/05/19 [History] Hydroxyzine Pamoate 25 mg PO DAILY 12/05/19 [History] Lisinopril/Hydrochlorothiazide [Lisinopril-Hctz 20-12.5 mg Tab] 1 each PO DAILY 12/05/19 [History] Metformin HCl [Glucophage] 1,000 mg PO BID 12/05/19 [History] Montelukast Sodium 10 mg [Singulair 10 MG] 10 mg PO DAILY 12/05/19 [History] Omeprazole 20 mg PO DAILY 12/05/19 [History] Propranolol HCl [Propranolol HCl ER] 80 mg PO DAILY 12/05/19 [History] Ropinirole HCl [Requip] 0.5 - 1 tab PO DAILY 12/05/19 [History] Topiramate [Topamax] 100 mg PO BID 12/05/19 [History] Trazodone HCl 50 mg [Desyrel 50 mg] 25 mg PO DAILY 12/05/19 [History] Verapamil HCl [Verapamil ER] 120 mg PO DAILY 12/05/19 [History] Hx Tetanus, Diphtheria Vaccination/Date Given: Yes Hx Influenza Vaccination/Date Given: Yes Hx Pneumococcal Vaccination/Date Given: Yes Immunizations Up to Date: Yes Travel Risk - International Travel Have you traveled outside of the country in past 3 weeks: No - Coronavirus Screening Are you exhibiting any of the following symptoms?: No Close contact with a COVID-19 positive Pt in past 14-21 Days: No - Vaccine Status Have you recieved a Covid-19 vaccination: Yes Sort Worker: Moderna - Vaccination Dates Date of 2cond Vaccination (if applicable): 08/10/2020 - Review of Systems Constitutional: No Symptoms, No Fever, No Chills Eyes: No Symptoms Ears, Nose, & Throat: No Symptoms Respiratory: No Symptoms, No Cough, No Dyspnea Cardiac: No Symptoms, No Chest Pain, No Edema, No Syncope Abdominal/Gastrointestinal: No Symptoms, No Abdominal Pain, No Nausea, No Vomiting, No Diarrhea Genitourinary Symptoms: No Symptoms, No Dysuria Musculoskeletal: No Symptoms, No Back Pain, No Neck Pain Skin: No Symptoms, No Rash Neurological: No Symptoms, No Dizziness, No Focal Weakness, No Sensory Changes Psychological: No Symptoms Endocrine: No Symptoms Hematologic/Lymphatic: No Symptoms Immunological/Allergic: No Symptoms All Other Systems: Reviewed and Negative - Past Medical History Pertinent Past Medical History: Yes (sarcoidosis, migraine, hypoxia) Neurological History: Migraines, Peripheral Neuropathy ENT History: Other Cardiac History: High Cholesterol, Hypertension, Myocardial Infarction (ND) Respiratory History: Other Endocrine Medical History: Diabetes Type II, Liver Disease Musculoskeletal History: Arthritis, Fibromyalgia, Osteoarthritis GI Medical History: Diverticulitis, Hernia, Irritable Bowel Psycho-Social History: Anxiety, Depression Female Reproductive Disorders: Cervical Cancer Other Medical History: HX OF CERVICAL CANCER (TREATED VIA SURGERY). HX OF LUNG DISEASE (SEES DR. SHELBY) - REPORTS HAS INCREASED PRESSUE IN THE LUNGS. STATES ND WAS "DRUG INDUCED" AFTER SURGERY. GERD, HX OF STOMACH ULCER. ANXIETY , DEPRESSION. SEES DR. KEIKO SON FOR MEDICATION FOR CHRONIC PAIN. - Past Surgical History Past Surgical History: Yes Gastrointestinal: Cholecystectomy, Hernia Repair Genitourinary: No Pertinent History Musculoskeletal: No Pertinent History Female Surgical History: Hysterectomy - Social History Smoking Status: Never smoker Exposure to second hand smoke: Yes Drug Use: none Patient Lives Alone: Yes - Female History Hx Now: No - Nursing Vital Signs Nursing Vital Signs: Initial Vital Signs Temperature 97.9 F 09/06/20 13:04 Pulse Rate 53 L 09/06/20 13:04 Respiratory Rate 18 09/06/20 13:04 Blood Pressure 187/74 09/06/20 13:04 O2 Sat by Pulse Oximetry 99 09/06/20 13:04 Pain Scale Pain Intensity 5 - Physical Exam General Appearance: no apparent distress Eye Exam: PERRL/EOMI Ears, Nose, Throat Exam: normal ENT inspection, moist mucous membranes Neck Exam: normal inspection, supple, full range of motion, No meningismus Respiratory Exam: normal breath sounds, lungs clear Cardiovascular Exam: regular rate/rhythm, normal heart sounds Gastrointestinal/Abdominal Exam: soft, No tenderness, No distention Back Exam: normal inspection, normal range of motion Extremity Exam: normal inspection, normal range of motion, pelvis stable Mental Status Exam: alert, oriented x 3, 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 I see no definite intracranial mass or focal mass-effect. The visualized frontal sinuses and remainder of the paranasal sinuses appear essentially unremarkable. Minimal chronic bilateral periventricular small vessel ischemic changes. No change from 04/10/2020) Ordered Tests: Medication Summary Discontinued Medications Generic Name Dose Route Start Last Admin Trade Name Freq PRN Reason Stop Dose Admin Albuterol Sulfate 2 puff 09/07/20 07:42 Ventolin Common Canister IH 10/07/20 07:41 Q4H PRN PRN SHORTNESS OF BREATH Aripiprazole 5 mg 09/07/20 10:00 09/07/20 10:41 Abilify 10 Mg PO 10/07/20 09:59 5 mg DAILY ANABELLE Administration Aspirin 81 mg 09/07/20 10:00 09/07/20 10:41 Ecotrin 81 Mg PO 10/07/20 09:59 81 mg DAILY ANABELLE Administration Buspirone HCl 10 mg 09/07/20 10:00 09/07/20 10:41 Buspar 5 Mg PO 10/07/20 09:59 10 mg BID ANABELLE Administration Dicyclomine HCl 20 mg 09/07/20 10:00 09/07/20 14:48 Bentyl 20 Mg PO 10/07/20 09:59 20 mg TID ANABELLE Administration Diphenhydramine HCl 25 mg 09/06/20 14:44 09/06/20 15:04 Benadryl 50 Mg/Ml IV 09/06/20 14:45 25 mg STAT ONE Administration Diphenhydramine HCl Confirm 09/06/20 14:50 Benadryl 50 Mg/Ml Administered 09/06/20 14:51 Dose 50 mg .ROUTE .STK-MED ONE Droperidol 1.25 mg 09/07/20 09:50 09/07/20 10:08 Inapsine 5 Mg/2 Ml IV 09/07/20 09:51 1.25 mg STAT ONE Administration Duloxetine HCl 60 mg 09/07/20 10:00 09/07/20 10:41 Cymbalta 30 Mg Capsule PO 10/07/20 09:59 60 mg DAILY ANABELLE Administration Hydrochlorothiazide 12.5 mg 09/07/20 10:00 09/07/20 10:43 Hydrodiuril 25 Mg PO 10/07/20 09:59 12.5 mg DAILY ANABELLE Administration Hydromorphone HCl 0.5 mg 09/06/20 19:21 09/06/20 19:27 Hydromorphone 1 Mg/Ml Injection IV 09/06/20 19:22 0.5 mg STAT ONE Administration Hydromorphone HCl Confirm 09/06/20 19:22 Hydromorphone 1 Mg/Ml Injection Administered 09/06/20 19:23 Dose 1 mg .ROUTE .STK-MED ONE Hydromorphone HCl 2 mg 09/07/20 14:52 09/07/20 15:01 Hydromorphone 1 Mg/Ml Injection IV 09/07/20 14:53 2 mg STAT ONE Administration Hydroxychloroquine Sulfate 200 mg 09/07/20 10:00 09/07/20 10:44 Hydroxychloroquine Sulfate PO 10/07/20 09:59 200 mg DAILY ANABELLE Administration Hydroxyzine HCl 25 mg 09/07/20 10:00 09/07/20 10:42 Atarax 25 Mg PO 10/07/20 09:59 25 mg DAILY ANABELLE Administration Sodium Chloride 1,000 mls @ 100 mls/hr 09/06/20 13:30 09/07/20 10:59 Sodium Chloride 0.9% 1000 Ml IV 10/06/20 13:29 100 mls/hr .Q10H ANABELLE Administration Magnesium Sulfate/Dextrose 100 mls @ 100 mls/hr 09/06/20 17:30 09/06/20 19:25 Magnesium 1 Gm / 100 Ml D5w IV 09/06/20 19:29 100 mls/hr Q1H ANABELLE Administration Nicardipine HCl 25 mg/ Sodium 250 mls @ 0 mls/hr 09/06/20 20:51 Chloride IV 10/06/20 20:50 .Q0M PRN TITRATE FOR BLOOD PRESSURE Protocol Titrate Magnesium Sulfate/Dextrose Confirm 09/06/20 19:25 Magnesium 1 Gm / 100 Ml D5w Administered 09/06/20 19:26 Dose 100 mls @ ud IV .STK-MED ONE Magnesium Sulfate/Dextrose Confirm 09/06/20 19:26 Magnesium 1 Gm / 100 Ml D5w Administered 09/06/20 19:27 Dose 100 mls @ ud IV .STK-MED ONE Sodium Chloride Confirm 09/06/20 14:07 Sodium Chloride 0.9% 1000 Ml Administered 09/06/20 14:08 Dose 1,000 mls @ ud .ROUTE .STK-MED ONE Chlorpromazine HCl 12.5 mg/ 100.5 mls @ 200 mls/hr 09/07/20 12:30 09/07/20 12:45 Sodium Chloride IV 09/07/20 13:00 200 mls/hr ONCE ONE Administration Chlorpromazine HCl 12.5 mg/ 100.5 mls @ 200 mls/hr 09/07/20 13:45 09/07/20 13:47 Sodium Chloride IV 09/07/20 14:15 200 mls/hr ONCE ONE Administration Ketorolac Tromethamine 30 mg 09/06/20 13:20 09/06/20 14:08 Toradol 30 Mg Injection IV 09/06/20 13:21 30 mg STAT ONE Administration Ketorolac Tromethamine Confirm 09/06/20 14:07 Toradol 30 Mg Injection Administered 09/06/20 14:08 Dose 30 mg .ROUTE .STK-MED ONE Lisinopril 20 mg 09/07/20 10:00 09/07/20 10:43 Zestril 20 Mg PO 10/07/20 09:59 20 mg DAILY ANABELLE Administration Metformin HCl 1,000 mg 09/07/20 08:00 09/07/20 07:37 Glucophage 500 Mg PO 10/07/20 07:59 1,000 mg BIDWMEALS ANABELLE Administration Methylprednisolone Sodium Succinate 125 mg 09/06/20 14:44 09/06/20 15:04 Solu-Medrol 125 Mg IV 09/06/20 14:45 125 mg STAT ONE Administration Methylprednisolone Sodium Succinate Confirm 09/06/20 14:50 Solu-Medrol 125 Mg Administered 09/06/20 14:51 Dose 125 mg .ROUTE .STK-MED ONE Montelukast Sodium 10 mg 09/07/20 10:00 09/07/20 10:43 Singulair 10 Mg PO 10/07/20 09:59 10 mg DAILY ANABELLE Administration Nalbuphine HCl 10 mg 09/07/20 10:00 09/07/20 10:09 Nubain 10 Mg/Ml IV 09/07/20 10:01 10 mg STAT ONE Administration Non-Formulary Dru each 09/07/20 10:00 09/07/20 10:45 Propranolol 80 Mg PO 10/07/20 09:59 1 each La Capsule DAILY ANABELLE Administration Oxycodone/Acetaminophen 1 tab 09/07/20 00:36 09/07/20 07:36 Oxycodone-Acetaminophen 10-325 PO 09/12/20 00:35 1 tab BID PRN PRN Administration PAIN Pantoprazole Sodium 40 mg 09/07/20 10:00 09/07/20 10:44 Protonix 40mg Tablet PO 10/07/20 09:59 40 mg DAILY ANABELLE Administration Prochlorperazine Edisylate 10 mg 09/06/20 13:22 09/06/20 14:09 Compazine 10 Mg/2 Ml IV 09/06/20 13:23 10 mg STAT ONE Administration Prochlorperazine Edisylate Confirm 09/06/20 14:07 Compazine 10 Mg/2 Ml Administered 09/06/20 14:08 Dose 10 mg .ROUTE .STK-MED ONE Propranolol HCl 80 mg 09/06/20 21:00 09/06/20 21:18 Inderal 20 Mg PO 09/06/20 21:01 80 mg STAT ONE Administration Ropinirole HCl 0.125 - 0.25 mg 09/07/20 10:00 09/07/20 10:42 Requip 0.5 Mg PO 10/07/20 09:59 0.125 mg DAILY ANABELLE Administration Simvastatin 40 mg 09/07/20 10:00 09/07/20 10:43 Zocor 20mg PO 10/07/20 09:59 40 mg DAILY ANABELLE Administration Tizanidine HCl 4 mg 09/07/20 07:30 09/07/20 07:41 Zanaflex 4 Mg PO 10/07/20 07:29 4 mg DAILY ANABELLE Administration Topiramate 100 mg 09/07/20 10:00 09/07/20 10:43 Topiramate PO 10/07/20 09:59 100 mg BID ANABELLE Administration Trazodone HCl 25 mg 09/07/20 10:00 09/07/20 10:42 Desyrel 50 Mg PO 10/07/20 09:59 25 mg DAILY ANABELLE Administration Verapamil HCl 120 mg 09/06/20 21:02 09/06/20 21:18 Calan 80 Mg PO 09/06/20 21:03 120 mg STAT ONE Administration Verapamil HCl 120 mg 09/07/20 10:00 09/07/20 10:44 Isoptin S.R. 240 Mg PO 10/07/20 09:59 120 mg DAILY ANABELLE Administration Lab/Rad Data: Laboratory Result [facility] 09/06/20 14:15 09/06/20 14:15 Laboratory Results 09/06/20 09/06/20 09/06/20 Range/Units 18:52 14:15 14:15 WBC (4.0-10.5) K/mm3 RBC (4.1-5.4) M/mm3 Hgb (12.0-16.0) gm/dl Hct (35-47) % MCV (78-100) fl MCH (26-32) pg MCHC (32-36) g/dl RDW (11.5-14.0) % Plt Count (150-450) K/mm3 MPV (7.5-11.0) fl Gran % (36.0-66.0) % Eos # (Auto) (0-0.5) Absolute Lymphs (auto) (1.0-4.6) Absolute Monos (auto) (0.0-1.3) Lymphocytes % (24.0-44.0) % Monocytes % (0.0-12.0) % Eosinophils % (0.00-5.0) % Basophils % (0.0-0.4) % Absolute Granulocytes (1.4-6.9) Basophils # (0-0.4) Sodium 139 (137-145) mmol/L Potassium 4.2 (3.5-5.1) mmol/L Chloride 107 (98-107) mmol/L Carbon Dioxide 26 (22-30) mmol/L Anion Gap 10.9 (5-15) MEQ/L BUN 12 (7-17) mg/dL Creatinine 1.13 H (0.52-1.04) mg/dL Estimated GFR 51.4 ML/MIN Glucose 92 (74-106) mg/dL Calcium 9.9 (8.4-10.2) mg/dL Magnesium 1.7 (1.6-2.3) mg/dL Total Bilirubin 0.20 (0.2-1.3) mg/dL AST 34 (14-36) U/L ALT 12 (0-35) U/L Alkaline Phosphatase 87 (38-126) U/L Serum Total Protein 7.2 (6.3-8.2) g/dL Albumin 3.8 (3.5-5.0) g/dL Influenza Type A Ag NEGATIVE (NEGATIVE) Influenza Type B Ag NEGATIVE (NEGATIVE) RSV (PCR) NEGATIVE (Negative) SARS-CoV-2 (PCR) NEGATIVE (NEGATIVE) 09/06/20 Range/Units 14:15 WBC 5.0 (4.0-10.5) K/mm3 RBC 3.79 L (4.1-5.4) M/mm3 Hgb 10.4 L (12.0-16.0) gm/dl Hct 33.5 L (35-47) % MCV 88.4 (78-100) fl MCH 27.4 (26-32) pg MCHC 31.0 L (32-36) g/dl RDW 16.1 H (11.5-14.0) % Plt Count 152 (150-450) K/mm3 MPV 9.7 (7.5-11.0) fl Gran % 44.8 (36.0-66.0) % Eos # (Auto) 0.29 (0-0.5) Absolute Lymphs (auto) 1.92 (1.0-4.6) Absolute Monos (auto) 0.55 (0.0-1.3) Lymphocytes % 38.2 (24.0-44.0) % Monocytes % 11.0 (0.0-12.0) % Eosinophils % 5.8 H (0.00-5.0) % Basophils % 0.2 (0.0-0.4) % Absolute Granulocytes 2.25 (1.4-6.9) Basophils # 0.01 (0-0.4) Sodium (137-145) mmol/L Potassium (3.5-5.1) mmol/L Chloride (98-107) mmol/L Carbon Dioxide (22-30) mmol/L Anion Gap (5-15) MEQ/L BUN (7-17) mg/dL Creatinine (0.52-1.04) mg/dL Estimated GFR ML/MIN Glucose (74-106) mg/dL Calcium (8.4-10.2) mg/dL Magnesium (1.6-2.3) mg/dL Total Bilirubin (0.2-1.3) mg/dL AST (14-36) U/L ALT (0-35) U/L Alkaline Phosphatase (38-126) U/L Serum Total Protein (6.3-8.2) g/dL Albumin (3.5-5.0) g/dL Influenza Type A Ag (NEGATIVE) Influenza Type B Ag (NEGATIVE) RSV (PCR) (Negative) SARS-CoV-2 (PCR) (NEGATIVE) - Progress Progress: improved Air Movement: good Progress Note: Patient 65-year-old female with intractable migraine. Headache mildly improved but not resolved. Patient states she is not ready for discharge. Case discussed with who accepts admission to observation. CT head negative. Plan of care discussed with patient. She agrees admission [facility] for further evaluation and treatment. 09/09/20 05:01 09/09/20 05:03 Blood Culture(s) Obtained: No Antibiotics given: No Discussed with : Keith Will see patient in: hospital (observation) Counseled pt/family regarding: lab results, diagnosis, rad results - Departure Departure Disposition: Observation Clinical Impression: Anemia, Hypertensive urgency Migraine Qualifiers: Migraine type: unspecified Intractability: intractable Condition: Stable Critical Care Time: No
[2020-09-06] MEDS ORDERED: Compazine 10 MG/2 ML ONE (14:07)
[2020-09-06] MEDS ORDERED: Sodium Chloride 0.9% 1000 ML 1,000 ML ONE (14:07)
[2020-09-06] MEDS ORDERED: TORAdol 30 mg Injection ONE (14:07)
[2020-09-06] MEDS: Sodium Chloride 0.9% 1000 ML 1,000 ML IV SCH (14:09)
[2020-09-06] MEDS ORDERED: BENADRYL 50 MG/ML IV ONE (14:44)
[2020-09-06] MEDS ORDERED: solu-MEDROL 125 MG IV ONE (14:44)
[2020-09-06] MEDS ORDERED: BENADRYL 50 MG/ML ONE (14:50)
[2020-09-06] MEDS ORDERED: solu-MEDROL 125 MG ONE (14:50)
[2020-09-06 15:01] LABS: Absolute Neutrophil Ct (ANC) 2.25 (1.4-6.9); BASOPHIL % 0.2 % (0.0-0.4); Basophil (Absolute #) 0.01 (0-0.4); Eosinophil % 5.8 % (0.00-5.0); Eosinophil (Absolute #) 0.29 (0-0.5); Hematocrit 33.5 % (35-47); Hemoglobin 10.4 gm/dl (12.0-16.0); Lymphocyte (Absolute #) 1.92 (1.0-4.6); Lymphocytes % 38.2 % (24.0-44.0); Mean Cell Volume 88.4 fl (78-100); Mean Corpuscular Hemoglobin 27.4 pg (26-32); Mean Platelet Volume 9.7 fl (7.5-11.0); Monocyte (Absolute #) 0.55 (0.0-1.3); Neutrophil % 44.8 % (36.0-66.0); Platelet Count 152 K/mm3 (150-450); Red Blood Count 3.79 M/mm3 (4.1-5.4); Red Cell Distribution Width 16.1 % (11.5-14.0)
[2020-09-06 15:12] LABS: ALBUMIN 3.8 g/dL (3.5-5.0); ANION GAP 10.9 MEQ/L (5-15); BILIRUBIN,TOTAL 0.2 mg/dL (0.2-1.3); Calcium 9.9 mg/dL (8.4-10.2); Creatinine 1 1.13 mg/dL (0.52-1.04); EST GLOMERULAR FILTRATION RATE 51.4 ML/MIN; Potassium 4.2 mmol/L (3.5-5.1); Total Protein 7.2 g/dL (6.3-8.2)
--- NOTE | 2020-09-06 17:02 | XRAY ---
Exam: CT of the head without IV contrast from 09/06/2020. CTDI: 53.92 mGy Comparison: CT of the head without IV contrast from 04/10/2020. Indication: 65-year-old female with frontal headaches for 4 days. Technique: Non-IV contrast axial images were obtained through the brain. Reconstructed coronal and sagittal images were created and reviewed. Findings: The ventricles are of normal size. No focal mass effect or midline shift is seen. No acute intracranial hemorrhage or abnormal extra-axial fluid collection is seen. I again see some minimal bilateral periventricular chronic white matter ischemic changes representing no change from 04/10/2020. A new low attenuation infarct is not seen. The cortical sulci and basilar cisterns appear unremarkable for the patient's stated age. The calvarium of the skull appears intact. I believe there is some mild hyperostosis frontalis interna. The visualized paranasal sinuses are clear without air-fluid levels. The mastoid air cells are clear without effusion. The middle ear cavities appear grossly unremarkable. The orbits appear grossly unremarkable. Impression: 1. No acute intracranial bleed is seen. 2. I see no definite intracranial mass or focal mass effect. The visualized frontal sinuses and remainder of the paranasal sinuses appear essentially unremarkable. 3. Minimal chronic bilateral periventricular small vessel ischemic changes, no change from 04/10/2020.
[2020-09-06] MEDS ORDERED: Hydromorphone 1 mg/ml Injection IV ONE (19:21)
[2020-09-06] MEDS ORDERED: Hydromorphone 1 mg/ml Injection ONE (19:22)
[2020-09-06] MEDS ORDERED: Magnesium 1 Gm / 100 Ml D5W*** 100 ML IV ONE ×2 (19:25→19:26)
[2020-09-06] MEDS: Magnesium 1 Gm / 100 Ml D5W*** 100 ML IV SCH (19:25)
[2020-09-06 19:44] LABS: INFLUENZA A NEGATIVE (NEGATIVE); INFLUENZA B NEGATIVE (NEGATIVE); RESPIRATORY SYNCTIAL VIRUS NEGATIVE (Negative)
[2020-09-06] MEDS ORDERED: CARDENE 25 MG/10 ML*** 25 MG in Sodium Chloride 0.9% 250 ML 240 ML IV PRN (20:51)
[2020-09-06] MEDS ORDERED: Inderal 20 MG PO ONE (21:00)
[2020-09-06] MEDS ORDERED: CALAN 80 MG PO ONE (21:02)
[2020-09-07] MEDS: Sodium Chloride 0.9% 1000 ML 1,000 ML IV SCH ×2 (00:08→10:59)
[2020-09-07] MEDS: OXYCODONE-ACETAMINOPHEN 10-325 PO PRN ×2 (01:59→07:36)
[2020-09-07 05:26] LABS: Hematocrit 34.4 % (35-47); Hemoglobin 10.8 gm/dl (12.0-16.0); Mean Cell Volume 87.1 fl (78-100); Mean Corpuscular Hemoglobin 27.3 pg (26-32); Mean Corpuscular Hgb Concent. 31.4 g/dl (32-36); Mean Platelet Volume 9.1 fl (7.5-11.0); Platelet Count 169 K/mm3 (150-450); Red Blood Count 3.95 M/mm3 (4.1-5.4); Red Cell Distribution Width 15.7 % (11.5-14.0); White Blood Count 6.7 K/mm3 (4.0-10.5)
[2020-09-07 06:00] LABS: ALBUMIN 3.9 g/dL (3.5-5.0); ANION GAP 16.1 MEQ/L (5-15); BILIRUBIN,TOTAL 0.3 mg/dL (0.2-1.3); Calcium 9.5 mg/dL (8.4-10.2); Creatinine 1 0.99 mg/dL (0.52-1.04); EST GLOMERULAR FILTRATION RATE 59.8 ML/MIN; Potassium 4.1 mmol/L (3.5-5.1); Total Protein 7.8 g/dL (6.3-8.2)
[2020-09-07 06:46] LABS: Lymphocytes 18 % (24-44); Monocyte 2 % (0.0-12.0); Neutrophils 80 % (36.0-66.0); Total Cells Counted 100
[2020-09-07 06:49] LABS: ANISOCYTOSIS 1+; Platelet Estimate NORMAL (NORMAL); Poikilocytosis 1+; Polychromasia 1+
[2020-09-07] MEDS ORDERED: Ventolin Hfa MDI IH SCH (07:30)
[2020-09-07] MEDS ORDERED: Zanaflex 4 MG PO SCH (07:30)
[2020-09-07] MEDS ORDERED: VENTOLIN COMMON CANISTER IH PRN (07:42)
[2020-09-07] MEDS ORDERED: Glucophage 500 MG PO SCH (08:00)
--- NOTE | 2020-09-07 08:01 | PCM.HP ---
History of Present Illness - Chief Complaint Chief Complaint: severe headachefor 2 days History of Present Illness: is a 65 year old female.with a history of migraine headache presents to our ED with the same. Headache is primarily frontal patient's headache started 3 days ago. Patient has taken all her usual medications. Patient's migraine is the same as her previous headaches. Patient declined a CT scan. Patient is asking for relief. No associated numbness tingling weakness. No nausea or vomiting. No blurred vision. Patient's headache is global. No focal or lateralizing symptoms. Patient denies fever no neck pain no photophobia no meningeal signs. Patient voices no other complaints or concerns at this time. Timing/Duration: day(s) (3 days ago) Quality: aching Head Pain Location: frontal Severity of Pain-Max: moderate Severity of Pain-Current: mild Recent Head Trauma: no recent headache/trauma Modifying Factors: Improves With: exposure to light, noise Associated Symptoms: No confusion, No dizziness, No facial pain, No fever/chills, No light-headedness, No nasal congestion, No numbness in legs/feet, No rash, No sweating, No scotoma, No seizures, No sensitive to light, No speech problems, No trouble walking, No vision changes, No visual disturbance Previous symptoms: same symptoms as today - Review of Systems Constitutional: No Fever, No Chills Eyes: No Symptoms Ears, Nose, & Throat: No Symptoms Respiratory: No Cough, No Short Of Breath Cardiac: No Chest Pain, No Edema, No Syncope Abdominal/Gastrointestinal: No Abdominal Pain, No Nausea, No Vomiting, No Diarrhea Genitourinary Symptoms: No Dysuria Musculoskeletal: No Back Pain, No Neck Pain Skin: No Rash Neurological: Headache, No Dizziness, No Focal Weakness, No Sensory Changes Psychological: No Symptoms Endocrine: No Symptoms Hematologic/Lymphatic: No Symptoms Immunological/Allergic: No Symptoms Medications & Allergies Home Medications: Home Medication List ARIPiprazole [Aripiprazole] 5 mg DAILY 11/16/18 [History Confirmed 09/06/20] Duloxetine HCl 60 mg PO DAILY 11/16/18 [History Confirmed 09/06/20] Oxycodone / APAP 10/325 mg [Oxycodone-Acetaminophen 10-325] 1 tab PO BID 11/16/18 [History Confirmed 09/06/20] Tizanidine HCl 4 mg PO DAILY 11/16/18 [History Confirmed 09/06/20] Albuterol 8 gm Mdi Hfa [Ventolin Hfa MDI] 2 inh PO Q4H 12/05/19 [History Confirmed 09/06/20] Aspirin EC 81 mg [Ecotrin 81 mg] 81 mg PO DAILY 12/05/19 [History Confirmed 09/06/20] Atorvastatin Calcium [Lipitor] 40 mg PO DAILY 12/05/19 [History Confirmed 09/06/20] Buspirone HCl [Buspar] 10 mg PO BID 12/05/19 [History Confirmed 09/06/20] Dicyclomine HCl 20 mg [Bentyl 20 mg] 20 mg PO TID 12/05/19 [History Confirmed 09/06/20] Hydroxychloroquine Sulfate 200 mg PO DAILY 12/05/19 [History Confirmed 09/06/20] Hydroxyzine Pamoate 25 mg PO DAILY 12/05/19 [History Confirmed 09/06/20] Lisinopril/Hydrochlorothiazide [Lisinopril-Hctz 20-12.5 mg Tab] 1 each PO DAILY 12/05/19 [History Confirmed 09/06/20] Metformin HCl [Glucophage] 1,000 mg PO BID 12/05/19 [History Confirmed 09/06/20] Montelukast Sodium 10 mg [Singulair 10 MG] 10 mg PO DAILY 12/05/19 [History Confirmed 09/06/20] Omeprazole 20 mg PO DAILY 12/05/19 [History Confirmed 09/06/20] Propranolol HCl [Propranolol HCl ER] 80 mg PO DAILY 12/05/19 [History Confirmed 09/06/20] Ropinirole HCl [Requip] 0.5 - 1 tab PO DAILY 12/05/19 [History Confirmed 09/06/20] Topiramate [Topamax] 100 mg PO BID 12/05/19 [History Confirmed 09/06/20] Trazodone HCl 50 mg [Desyrel 50 mg] 25 mg PO DAILY 12/05/19 [History Confirmed 09/06/20] Verapamil HCl [Verapamil ER] 120 mg PO DAILY 12/05/19 [History Confirmed 09/06/20] Allergies/Adverse Reactions: Allergies Allergy/AdvReac Type Severity Reaction Status Date / Time gabapentin Allergy Severe Verified 09/06/20 13:04 fluoxetine HCl [From Prozac] Allergy Intermediate Hives Verified 09/06/20 13:04 Latex, Natural Rubber Allergy Mild Hives Verified 09/06/20 13:04 - Past Medical History Past Medical History: Yes (sarcoidosis, migraine, hypoxia) Neurological History: Migraines, Peripheral Neuropathy ENT History: Other Cardiac History: High Cholesterol, Hypertension, Myocardial Infarction ([place]) Respiratory History: Other Endocrine Medical History: Diabetes Type II, Liver Disease Musculoskelatal History: Arthritis, Fibromyalgia, Osteoarthritis GI Medical History: Diverticulitis, Hernia, Irritable Bowel History: No Pertinent History Pyscho-Social History: Anxiety, Depression Reproductive Disorders: Cervical Cancer Comment: HX OF CERVICAL CANCER (TREATED VIA SURGERY). HX OF LUNG DISEASE (SEES DR. SHELBY) - REPORTS HAS INCREASED PRESSUE IN THE LUNGS. STATES [place] WAS "DRUG INDUCED" AFTER SURGERY. GERD, HX OF STOMACH ULCER. ANXIETY, DEPRESSION. SEES DR. KEIKO SON FOR MEDICATION FOR CHRONIC PAIN. - Female History Are you now?: No - Past Surgical History Past Surgical History: Yes Neuro Surgical History: No Pertinent History Cardiac History: No Pertinent History, Cardiac Catheterization Respiratory Surgery: No Pertinent History GI Surgical History: Cholecystectomy, Hernia Repair Genitourinary Surgical Hx: No Pertinent History Musculskeletal Surgical Hx: No Pertinent History Female Surgical History: Hysterectomy - Social History Smoking Status: Never smoker Exposure to second hand smoke: Yes Alcohol: None Drug Use: none - Physical Exam Vital Signs: Vital Signs - 24 hr Temp Pulse Resp BP Pulse Ox 09/07/20 04:00 98.7 F 65 20 180/71 96 09/06/20 23:00 96.3 F 55 L 20 92/51 96 09/06/20 22:53 96.3 F 55 L 20 92/51 96 09/06/20 22:43 96.3 F 47 L 16 92/51 95 09/06/20 22:08 67 147/72 98 09/06/20 20:52 99 09/06/20 18:16 74 17 175/89 96 09/06/20 17:04 58 L 18 93 L 09/06/20 16:16 54 L 18 97 09/06/20 15:18 50 L 18 197/76 98 09/06/20 14:16 50 L 15 154/66 95 09/06/20 14:15 96 09/06/20 13:04 97.9 F 53 L 18 187/74 99 General Appearance: no apparent distress, alert Neurologic Exam: alert, oriented x 3, cooperative, normal mood/affect, nml cerebellar function, nml station & gait, sensation nml, No motor deficits Eye Exam: PERRL/EOMI, eyes nml inspection Ears, Nose, Throat Exam: normal ENT inspection, TMs normal, pharynx normal, moist mucous membranes Neck Exam: normal inspection, non-tender, supple, full range of motion Respiratory Exam: normal breath sounds, lungs clear, No respiratory distress Cardiovascular Exam: regular rate/rhythm, normal heart sounds, normal peripheral pulses Gastrointestinal/Abdomen Exam: soft, normal bowel sounds, No tenderness, No mass Back Exam: normal inspection, normal range of motion, No CVA tenderness, No vertebral tenderness Extremity Exam: normal inspection, normal range of motion, pelvis stable Skin Exam: normal color, warm, dry, No rash Lymphatic Exam: No adenopathy Results - Labs Lab/Micro Results: Lab Results-Last 24 Hours 09/06/20 09/06/20 09/06/20 Range/Units 14:15 14:15 14:15 WBC 5.0 (4.0-10.5) K/mm3 RBC 3.79 L (4.1-5.4) M/mm3 Hgb 10.4 L (12.0-16.0) gm/dl Hct 33.5 L (35-47) % MCV 88.4 (78-100) fl MCH 27.4 (26-32) pg MCHC 31.0 L (32-36) g/dl RDW 16.1 H (11.5-14.0) % Plt Count 152 (150-450) K/mm3 MPV 9.7 (7.5-11.0) fl Gran % 44.8 (36.0-66.0) % Eos # (Auto) 0.29 (0-0.5) Absolute Lymphs (auto) 1.92 (1.0-4.6) Absolute Monos (auto) 0.55 (0.0-1.3) Lymphocytes % 38.2 (24.0-44.0) % Monocytes % 11.0 (0.0-12.0) % Eosinophils % 5.8 H (0.00-5.0) % Basophils % 0.2 (0.0-0.4) % Absolute Granulocytes 2.25 (1.4-6.9) Segmented Neutrophils (36.0-66.0) % Lymphocytes (Manual) (24-44) % Monocytes (Manual) (0.0-12.0) % Basophils # 0.01 (0-0.4) Platelet Estimate (NORMAL) RBC Morphology Polychromasia Poikilocytosis Anisocytosis Sodium 139 (137-145) mmol/L Potassium 4.2 (3.5-5.1) mmol/L Chloride 107 (98-107) mmol/L Carbon Dioxide 26 (22-30) mmol/L Anion Gap 10.9 (5-15) MEQ/L BUN 12 (7-17) mg/dL Creatinine 1.13 H (0.52-1.04) mg/dL Estimated GFR 51.4 ML/MIN Glucose 92 (74-106) mg/dL POC Glucometer (74 to 106) mg/dL Calcium 9.9 (8.4-10.2) mg/dL Magnesium 1.7 (1.6-2.3) mg/dL Total Bilirubin 0.20 (0.2-1.3) mg/dL AST 34 (14-36) U/L ALT 12 (0-35) U/L Alkaline Phosphatase 87 (38-126) U/L Serum Total Protein 7.2 (6.3-8.2) g/dL Albumin 3.8 (3.5-5.0) g/dL Influenza Type A Ag (NEGATIVE) Influenza Type B Ag (NEGATIVE) RSV (PCR) (Negative) SARS-CoV-2 (PCR) (NEGATIVE) 09/06/20 09/07/20 09/07/20 Range/Units 18:52 04:00 04:00 WBC 6.7 (4.0-10.5) K/mm3 RBC 3.95 L (4.1-5.4) M/mm3 Hgb 10.8 L (12.0-16.0) gm/dl Hct 34.4 L (35-47) % MCV 87.1 (78-100) fl MCH 27.3 (26-32) pg MCHC 31.4 L (32-36) g/dl RDW 15.7 H (11.5-14.0) % Plt Count 169 (150-450) K/mm3 MPV 9.1 (7.5-11.0) fl Gran % (36.0-66.0) % Eos # (Auto) (0-0.5) Absolute Lymphs (auto) (1.0-4.6) Absolute Monos (auto) (0.0-1.3) Lymphocytes % (24.0-44.0) % Monocytes % (0.0-12.0) % Eosinophils % (0.00-5.0) % Basophils % (0.0-0.4) % Absolute Granulocytes (1.4-6.9) Segmented Neutrophils 80 H (36.0-66.0) % Lymphocytes (Manual) 18 L (24-44) % Monocytes (Manual) 2 (0.0-12.0) % Basophils # (0-0.4) Platelet Estimate NORMAL (NORMAL) RBC Morphology ABNORMAL Polychromasia 1+ Poikilocytosis 1+ Anisocytosis 1+ Sodium 139 (137-145) mmol/L Potassium 4.1 (3.5-5.1) mmol/L Chloride 107 (98-107) mmol/L Carbon Dioxide 20 L (22-30) mmol/L Anion Gap 16.1 H (5-15) MEQ/L BUN 13 (7-17) mg/dL Creatinine 0.99 (0.52-1.04) mg/dL Estimated GFR 59.8 ML/MIN Glucose 126 H (74-106) mg/dL POC Glucometer (74 to 106) mg/dL Calcium 9.5 (8.4-10.2) mg/dL Magnesium (1.6-2.3) mg/dL Total Bilirubin 0.30 (0.2-1.3) mg/dL AST 37 H (14-36) U/L ALT 17 (0-35) U/L Alkaline Phosphatase 74 (38-126) U/L Serum Total Protein 7.8 (6.3-8.2) g/dL Albumin 3.9 (3.5-5.0) g/dL Influenza Type A Ag NEGATIVE (NEGATIVE) Influenza Type B Ag NEGATIVE (NEGATIVE) RSV (PCR) NEGATIVE (Negative) SARS-CoV-2 (PCR) NEGATIVE (NEGATIVE) 09/07/20 Range/Units 07:21 WBC (4.0-10.5) K/mm3 RBC (4.1-5.4) M/mm3 Hgb (12.0-16.0) gm/dl Hct (35-47) % MCV (78-100) fl MCH (26-32) pg MCHC (32-36) g/dl RDW (11.5-14.0) % Plt Count (150-450) K/mm3 MPV (7.5-11.0) fl Gran % (36.0-66.0) % Eos # (Auto) (0-0.5) Absolute Lymphs (auto) (1.0-4.6) Absolute Monos (auto) (0.0-1.3) Lymphocytes % (24.0-44.0) % Monocytes % (0.0-12.0) % Eosinophils % (0.00-5.0) % Basophils % (0.0-0.4) % Absolute Granulocytes (1.4-6.9) Segmented Neutrophils (36.0-66.0) % Lymphocytes (Manual) (24-44) % Monocytes (Manual) (0.0-12.0) % Basophils # (0-0.4) Platelet Estimate (NORMAL) RBC Morphology Polychromasia Poikilocytosis Anisocytosis Sodium (137-145) mmol/L Potassium (3.5-5.1) mmol/L Chloride (98-107) mmol/L Carbon Dioxide (22-30) mmol/L Anion Gap (5-15) MEQ/L BUN (7-17) mg/dL Creatinine (0.52-1.04) mg/dL Estimated GFR ML/MIN Glucose (74-106) mg/dL POC Glucometer 101 (74 to 106) mg/dL Calcium (8.4-10.2) mg/dL Magnesium (1.6-2.3) mg/dL Total Bilirubin (0.2-1.3) mg/dL AST (14-36) U/L ALT (0-35) U/L Alkaline Phosphatase (38-126) U/L Serum Total Protein (6.3-8.2) g/dL Albumin (3.5-5.0) g/dL Influenza Type A Ag (NEGATIVE) Influenza Type B Ag (NEGATIVE) RSV (PCR) (Negative) SARS-CoV-2 (PCR) (NEGATIVE) - Radiology Impressions Radiology Exams & Impressions: Radiology Procedures Category Date Time Status HEAD WITHOUT CONTRAST [CT] Stat Exams 09/06/20 15:[address]/HEAD WITHOUT CONTRAST Exam: CT of the head without IV contrast from 09/06/2020. CTDI: 53.92 mGy Comparison: CT of the head without IV contrast from 04/10/2020. Indication: 65-year-old female with frontal headaches for 4 days. Technique: Non-IV contrast axial images were obtained through the brain. Reconstructed coronal and sagittal images were created and reviewed. Findings: The ventricles are of normal size. No focal mass effect or midline shift is seen. No acute intracranial hemorrhage or abnormal extra-axial fluid collection is seen. I again see some minimal bilateral periventricular chronic white matter ischemic changes representing no change from 04/10/2020. A new low attenuation infarct is not seen. The cortical sulci and basilar cisterns appear unremarkable for the patient's stated age. The calvarium of the skull appears intact. I believe there is some mild hyperostosis frontalis interna. The visualized paranasal sinuses are clear without air-fluid levels. The mastoid air cells are clear without effusion. The middle ear cavities appear grossly unremarkable. The orbits appear grossly unremarkable. Impression: 1. No acute intracranial bleed is seen. 2. I see no definite intracranial mass or focal mass effect. The visualized frontal sinuses and remainder of the paranasal sinuses appear essentially unremarkable. 3. Minimal chronic bilateral periventricular small vessel ischemic changes, no change from 04/10/2020. Assessment/Plan (1) Hypertensive urgency Current Visit: Yes Status: Acute Code(s): I16.0 - HYPERTENSIVE URGENCY (2) Migraine Current Visit: Yes Status: Acute Qualifiers: Migraine type: unspecified Intractability: intractable Code(s): G43.909 - MIGRAINE, UNSP, NOT INTRACTABLE, WITHOUT STATUS MIGRAINOSUS
[2020-09-07] MEDS ORDERED: Inapsine 5 MG/2 ML IV ONE (09:50)
[2020-09-07] MEDS ORDERED: NALBUPHINE HCL 10 MG/1 ML INJECTION IV STA (09:50)
[2020-09-07] MEDS ORDERED: HYDROXYCHLOROQUINE SULFATE PO SCH (10:00)
[2020-09-07] MEDS ORDERED: Requip 0.5 MG PO SCH (10:00)
[2020-09-07] MEDS ORDERED: NON-FORMULARY ITEM (Aripiprazole [Aripiprazole] 5 mg) PO SCH (10:00)
[2020-09-07] MEDS ORDERED: DESYREL 50 MG PO SCH (10:00)
[2020-09-07] MEDS ORDERED: NON-FORMULARY ITEM (Lisinopril/Hydrochlorothiazide [Lisinopril-Hctz 20-12.5 Mg Tab] 1 EACH PO SCH (10:00)
[2020-09-07] MEDS ORDERED: BUSPAR 5 MG PO SCH (10:00)
[2020-09-07] MEDS ORDERED: Cymbalta 30 MG Capsule PO SCH (10:00)
[2020-09-07] MEDS ORDERED: ROPINIROLE HCL PO SCH (10:00)
[2020-09-07] MEDS ORDERED: Zestril 20 MG PO SCH (10:00)
[2020-09-07] MEDS ORDERED: NON-FORMULARY ITEM (Omeprazole [Omeprazole] 20 MG) PO SCH (10:00)
[2020-09-07] MEDS ORDERED: hydroDIURIL 25 MG PO SCH (10:00)
[2020-09-07] MEDS ORDERED: ECOTRIN 81 MG PO SCH (10:00)
[2020-09-07] MEDS ORDERED: TOPIRAMATE PO SCH (10:00)
[2020-09-07] MEDS ORDERED: NON-FORMULARY ITEM (Verapamil Hcl [Verapamil Er] 120 MG) PO SCH (10:00)
[2020-09-07] MEDS ORDERED: NON-FORMULARY ITEM (Propranolol Hcl [Propranolol Hcl Er] 80 MG) PO SCH (10:00)
[2020-09-07] MEDS ORDERED: Singulair 10 MG PO SCH (10:00)
[2020-09-07] MEDS ORDERED: ATARAX 25 MG PO SCH (10:00)
[2020-09-07] MEDS ORDERED: ZOCOR 20MG PO SCH (10:00)
[2020-09-07] MEDS ORDERED: NON-FORMULARY ITEM (Hydroxyzine Pamoate [Hydroxyzine Pamoate] 25 MG) PO SCH (10:00)
[2020-09-07] MEDS ORDERED: ISOPTIN S.R. 240 MG PO SCH (10:00)
[2020-09-07] MEDS ORDERED: Nubain 10 MG/ML IV ONE (10:00)
[2020-09-07] MEDS ORDERED: NON-FORMULARY ITEM PO SCH (10:00)
[2020-09-07] MEDS ORDERED: LIPITOR 40MG PO SCH (10:00)
[2020-09-07] MEDS ORDERED: Protonix 40MG Tablet PO SCH (10:00)
[2020-09-07] MEDS ORDERED: Abilify 10 MG PO SCH (10:00)
[2020-09-07] MEDS: BENTYL 20 MG PO SCH ×2 (10:43→14:48)
[2020-09-07] MEDS ORDERED: THORAZINE IV ONE ×2 (12:30→13:45)
[2020-09-07] MEDS ORDERED: SODIUM CHLORIDE 0.9% IV ONE ×2 (12:30→13:45)
[2020-09-07 14:09] VITALS: PULSE 67
[2020-09-07] MEDS ORDERED: Hydromorphone 1 mg/ml Injection IV ONE (14:52)
[2020-09-07 16:56] VITALS: BP 156/71
[2020-09-09 05:05] VITALS: O2SAT 99
--- NOTE | 2020-09-09 12:00 | PCM.DS ---
Discharge Summary Date of Admission: 09/06/20 22:43 Admitting Physician: AMINAH ZELAYA Primary Care Provider: NEHAL SMITH Allergies Allergies gabapentin Allergy (Severe, Verified 09/06/20 13:04) fluoxetine HCl [From Prozac] Allergy (Intermediate, Verified 09/06/20 13:04) Hives Latex, Natural Rubber Allergy (Mild, Verified 09/06/20 13:04) [facility] Summary - Hospital Course Hospital Course: Chief Complaint Diagnosis severe headachefor 2 days Allergies Allergy/AdvReac Type Severity Reaction Status Date / Time gabapentin Allergy Severe Verified 09/06/20 13:04 fluoxetine HCl [From Prozac] Allergy Intermediate Hives Verified 09/06/20 13:04 Latex, Natural Rubber Allergy Mild Hives Verified 09/06/20 13:04 Vital Signs (Last 24 hours) Pulse Ox 09/09/20 05:05 99 Current Medications Discontinued Medications Generic Name Dose Route Start Last Admin Trade Name Freq PRN Reason Stop Dose Admin Albuterol Sulfate 2 puff 09/07/20 07:42 Ventolin Common Canister IH 10/07/20 07:41 Q4H PRN PRN SHORTNESS OF BREATH Aripiprazole 5 mg 09/07/20 10:00 09/07/20 10:41 Abilify 10 Mg PO 10/07/20 09:59 5 mg DAILY ANABELLE Administration Aspirin 81 mg 09/07/20 10:00 09/07/20 10:41 Ecotrin 81 Mg PO 10/07/20 09:59 81 mg DAILY ANABELLE Administration Buspirone HCl 10 mg 09/07/20 10:00 09/07/20 10:41 Buspar 5 Mg PO 10/07/20 09:59 10 mg BID ANABELLE Administration Dicyclomine HCl 20 mg 09/07/20 10:00 09/07/20 14:48 Bentyl 20 Mg PO 10/07/20 09:59 20 mg TID ANABELLE Administration Diphenhydramine HCl 25 mg 09/06/20 14:44 09/06/20 15:04 Benadryl 50 Mg/Ml IV 09/06/20 14:45 25 mg STAT ONE Administration Diphenhydramine HCl Confirm 09/06/20 14:50 Benadryl 50 Mg/Ml Administered 09/06/20 14:51 Dose 50 mg .ROUTE .STK-MED ONE Droperidol 1.25 mg 09/07/20 09:50 09/07/20 10:08 Inapsine 5 Mg/2 Ml IV 09/07/20 09:51 1.25 mg STAT ONE Administration Duloxetine HCl 60 mg 09/07/20 10:00 09/07/20 10:41 Cymbalta 30 Mg Capsule PO 10/07/20 09:59 60 mg DAILY ANABELLE Administration Hydrochlorothiazide 12.5 mg 09/07/20 10:00 09/07/20 10:43 Hydrodiuril 25 Mg PO 10/07/20 09:59 12.5 mg DAILY ANABELLE Administration Hydromorphone HCl 0.5 mg 09/06/20 19:21 09/06/20 19:27 Hydromorphone 1 Mg/Ml Injection IV 09/06/20 19:22 0.5 mg STAT ONE Administration Hydromorphone HCl Confirm 09/06/20 19:22 Hydromorphone 1 Mg/Ml Injection Administered 09/06/20 19:23 Dose 1 mg .ROUTE .STK-MED ONE Hydromorphone HCl 2 mg 09/07/20 14:52 09/07/20 15:01 Hydromorphone 1 Mg/Ml Injection IV 09/07/20 14:53 2 mg STAT ONE Administration Hydroxychloroquine Sulfate 200 mg 09/07/20 10:00 09/07/20 10:44 Hydroxychloroquine Sulfate PO 10/07/20 09:59 200 mg DAILY ANABELLE Administration Hydroxyzine HCl 25 mg 09/07/20 10:00 09/07/20 10:42 Atarax 25 Mg PO 10/07/20 09:59 25 mg DAILY ANABELLE Administration Sodium Chloride 1,000 mls @ 100 mls/hr 09/06/20 13:30 09/07/20 10:59 Sodium Chloride 0.9% 1000 Ml IV 10/06/20 13:29 100 mls/hr .Q10H ANABELLE Administration Magnesium Sulfate/Dextrose 100 mls @ 100 mls/hr 09/06/20 17:30 09/06/20 19:25 Magnesium 1 Gm / 100 Ml D5w IV 09/06/20 19:29 100 mls/hr Q1H ANABELLE Administration Nicardipine HCl 25 mg/ Sodium 250 mls @ 0 mls/hr 09/06/20 20:51 Chloride IV 10/06/20 20:50 .Q0M PRN TITRATE FOR BLOOD PRESSURE Protocol Titrate Magnesium Sulfate/Dextrose Confirm 09/06/20 19:25 Magnesium 1 Gm / 100 Ml D5w Administered 09/06/20 19:26 Dose 100 mls @ ud IV .STK-MED ONE Magnesium Sulfate/Dextrose Confirm 09/06/20 19:26 Magnesium 1 Gm / 100 Ml D5w Administered 09/06/20 19:27 Dose 100 mls @ ud IV .STK-MED ONE Sodium Chloride Confirm 09/06/20 14:07 Sodium Chloride 0.9% 1000 Ml Administered 09/06/20 14:08 Dose 1,000 mls @ ud .ROUTE .STK-MED ONE Chlorpromazine HCl 12.5 mg/ 100.5 mls @ 200 mls/hr 09/07/20 12:30 09/07/20 12:45 Sodium Chloride IV 09/07/20 13:00 200 mls/hr ONCE ONE Administration Chlorpromazine HCl 12.5 mg/ 100.5 mls @ 200 mls/hr 09/07/20 13:45 09/07/20 13:47 Sodium Chloride IV 09/07/20 14:15 200 mls/hr ONCE ONE Administration Ketorolac Tromethamine 30 mg 09/06/20 13:20 09/06/20 14:08 Toradol 30 Mg Injection IV 09/06/20 13:21 30 mg STAT ONE Administration Ketorolac Tromethamine Confirm 09/06/20 14:07 Toradol 30 Mg Injection Administered 09/06/20 14:08 Dose 30 mg .ROUTE .STK-MED ONE Lisinopril 20 mg 09/07/20 10:00 09/07/20 10:43 Zestril 20 Mg PO 10/07/20 09:59 20 mg DAILY ANABELLE Administration Metformin HCl 1,000 mg 09/07/20 08:00 09/07/20 07:37 Glucophage 500 Mg PO 10/07/20 07:59 1,000 mg BIDWMEALS ANABELLE Administration Methylprednisolone Sodium Succinate 125 mg 09/06/20 14:44 09/06/20 15:04 Solu-Medrol 125 Mg IV 09/06/20 14:45 125 mg STAT ONE Administration Methylprednisolone Sodium Succinate Confirm 09/06/20 14:50 Solu-Medrol 125 Mg Administered 09/06/20 14:51 Dose 125 mg .ROUTE .STK-MED ONE Montelukast Sodium 10 mg 09/07/20 10:00 09/07/20 10:43 Singulair 10 Mg PO 10/07/20 09:59 10 mg DAILY ANABELLE Administration Nalbuphine HCl 10 mg 09/07/20 10:00 09/07/20 10:09 Nubain 10 Mg/Ml IV 09/07/20 10:01 10 mg STAT ONE Administration Non-Formulary Dru each 09/07/20 10:00 09/07/20 10:45 Propranolol 80 Mg PO 10/07/20 09:59 1 each La Capsule DAILY ANABELLE Administration Oxycodone/Acetaminophen 1 tab 09/07/20 00:36 09/07/20 07:36 Oxycodone-Acetaminophen 10-325 PO 09/12/20 00:35 1 tab BID PRN PRN Administration PAIN Pantoprazole Sodium 40 mg 09/07/20 10:00 09/07/20 10:44 Protonix 40mg Tablet PO 10/07/20 09:59 40 mg DAILY ANABELLE Administration Prochlorperazine Edisylate 10 mg 09/06/20 13:22 09/06/20 14:09 Compazine 10 Mg/2 Ml IV 09/06/20 13:23 10 mg STAT ONE Administration Prochlorperazine Edisylate Confirm 09/06/20 14:07 Compazine 10 Mg/2 Ml Administered 09/06/20 14:08 Dose 10 mg .ROUTE .STK-MED ONE Propranolol HCl 80 mg 09/06/20 21:00 09/06/20 21:18 Inderal 20 Mg PO 09/06/20 21:01 80 mg STAT ONE Administration Ropinirole HCl 0.125 - 0.25 mg 09/07/20 10:00 09/07/20 10:42 Requip 0.5 Mg PO 10/07/20 09:59 0.125 mg DAILY ANABELLE Administration Simvastatin 40 mg 09/07/20 10:00 09/07/20 10:43 Zocor 20mg PO 10/07/20 09:59 40 mg DAILY ANABELLE Administration Tizanidine HCl 4 mg 09/07/20 07:30 09/07/20 07:41 Zanaflex 4 Mg PO 10/07/20 07:29 4 mg DAILY ANABELLE Administration Topiramate 100 mg 09/07/20 10:00 09/07/20 10:43 Topiramate PO 10/07/20 09:59 100 mg BID ANABELLE Administration Trazodone HCl 25 mg 09/07/20 10:00 09/07/20 10:42 Desyrel 50 Mg PO 10/07/20 09:59 25 mg DAILY ANABELLE Administration Verapamil HCl 120 mg 09/06/20 21:02 09/06/20 21:18 Calan 80 Mg PO 09/06/20 21:03 120 mg STAT ONE Administration Verapamil HCl 120 mg 09/07/20 10:00 09/07/20 10:44 Isoptin S.R. 240 Mg PO 10/07/20 09:59 120 mg DAILY ANABELLE Administration Intake & Output (Last 24 hours) 09/06/20 09/07/20 09/08/20 09/09/20 11:59 11:59 11:59 11:59 Intake Total 1495 720 Output Total 500 1000 Balance 995 -280 Weight 104.3 kg - Vitals & Intake/Output Vital Signs: Vital Signs Temperature 96.2 F 09/07/20 16:55 Pulse Rate 67 09/07/20 16:55 Respiratory Rate 18 09/07/20 16:55 Blood Pressure 156/71 09/07/20 16:55 O2 Sat by Pulse Oximetry 99 09/09/20 05:05 Intake & Output: Intake & Output 09/06/20 09/07/20 09/08/20 09/09/20 11:59 11:59 11:59 11:59 Intake Total 1495 720 Output Total 500 1000 Balance 995 -280 Weight 104.3 kg - Lab Result Diagrams: 09/07/20 04:00 09/07/20 04:00 - Procedures and Test Procedures and Tests throughout Hospitalization: Therapy Orders & Screens 09/06/20 23:14 Respiratory Therapy Assessment DAILY Comment: Diagnosis: intractable migraine Discharge Exam General Appearance: no apparent distress, alert Neurologic Exam: alert, oriented x 3, cooperative, normal mood/affect, nml cerebellar function, sensation nml, No motor deficits Eye Exam: PERRL, EOMI, eyes nml inspection Ears, Nose, Throat Exam: normal ENT inspection, pharynx normal, moist mucous membranes Neck Exam: normal inspection, non-tender, supple, full range of motion Respiratory Exam: normal breath sounds, lungs clear, No respiratory distress Cardiovascular Exam: regular rate/rhythm, normal heart sounds Gastrointestinal/Abdomen Exam: soft, No tenderness, No mass Pelvic Exam: deferred Rectal Exam: deferred Back Exam: normal inspection, normal range of motion, No CVA tenderness, No vertebral tenderness Extremity Exam: normal inspection, normal range of motion Skin Exam: normal color, warm, dry Final Diagnosis/Problem List - Final Discharge Diagnosis/Problem (1) Hypertensive urgency Status: Acute Assessment & Plan: Chief Complaint Diagnosis severe headachefor 2 days Allergies Allergy/AdvReac Type Severity Reaction Status Date / Time gabapentin Allergy Severe Verified 09/06/20 13:04 fluoxetine HCl [From Prozac] Allergy Intermediate Hives Verified 09/06/20 13:04 Latex, Natural Rubber Allergy Mild Hives Verified 09/06/20 13:04 Vital Signs (Last 24 hours) Pulse Ox 09/09/20 05:05 99 Current Medications Discontinued Medications Generic Name Dose Route Start Last Admin Trade Name Freq PRN Reason Stop Dose Admin Albuterol Sulfate 2 puff 09/07/20 07:42 Ventolin Common Canister IH 10/07/20 07:41 Q4H PRN PRN SHORTNESS OF BREATH Aripiprazole 5 mg 09/07/20 10:00 09/07/20 10:41 Abilify 10 Mg PO 10/07/20 09:59 5 mg DAILY ANABELLE Administration Aspirin 81 mg 09/07/20 10:00 09/07/20 10:41 Ecotrin 81 Mg PO 10/07/20 09:59 81 mg DAILY ANABELLE Administration Buspirone HCl 10 mg 09/07/20 10:00 09/07/20 10:41 Buspar 5 Mg PO 10/07/20 09:59 10 mg BID ANABELLE Administration Dicyclomine HCl 20 mg 09/07/20 10:00 09/07/20 14:48 Bentyl 20 Mg PO 10/07/20 09:59 20 mg TID ANABELLE Administration Diphenhydramine HCl 25 mg 09/06/20 14:44 09/06/20 15:04 Benadryl 50 Mg/Ml IV 09/06/20 14:45 25 mg STAT ONE Administration Diphenhydramine HCl Confirm 09/06/20 14:50 Benadryl 50 Mg/Ml Administered 09/06/20 14:51 Dose 50 mg .ROUTE .STK-MED ONE Droperidol 1.25 mg 09/07/20 09:50 09/07/20 10:08 Inapsine 5 Mg/2 Ml IV 09/07/20 09:51 1.25 mg STAT ONE Administration Duloxetine HCl 60 mg 09/07/20 10:00 09/07/20 10:41 Cymbalta 30 Mg Capsule PO 10/07/20 09:59 60 mg DAILY ANABELLE Administration Hydrochlorothiazide 12.5 mg 09/07/20 10:00 09/07/20 10:43 Hydrodiuril 25 Mg PO 10/07/20 09:59 12.5 mg DAILY ANABELLE Administration Hydromorphone HCl 0.5 mg 09/06/20 19:21 09/06/20 19:27 Hydromorphone 1 Mg/Ml Injection IV 09/06/20 19:22 0.5 mg STAT ONE Administration Hydromorphone HCl Confirm 09/06/20 19:22 Hydromorphone 1 Mg/Ml Injection Administered 09/06/20 19:23 Dose 1 mg .ROUTE .STK-MED ONE Hydromorphone HCl 2 mg 09/07/20 14:52 09/07/20 15:01 Hydromorphone 1 Mg/Ml Injection IV 09/07/20 14:53 2 mg STAT ONE Administration Hydroxychloroquine Sulfate 200 mg 09/07/20 10:00 09/07/20 10:44 Hydroxychloroquine Sulfate PO 10/07/20 09:59 200 mg DAILY ANABELLE Administration Hydroxyzine HCl 25 mg 09/07/20 10:00 09/07/20 10:42 Atarax 25 Mg PO 10/07/20 09:59 25 mg DAILY ANABELLE Administration Sodium Chloride 1,000 mls @ 100 mls/hr 09/06/20 13:30 09/07/20 10:59 Sodium Chloride 0.9% 1000 Ml IV 10/06/20 13:29 100 mls/hr .Q10H ANABELLE Administration Magnesium Sulfate/Dextrose 100 mls @ 100 mls/hr 09/06/20 17:30 09/06/20 19:25 Magnesium 1 Gm / 100 Ml D5w IV 09/06/20 19:29 100 mls/hr Q1H ANABELLE Administration Nicardipine HCl 25 mg/ Sodium 250 mls @ 0 mls/hr 09/06/20 20:51 Chloride IV 10/06/20 20:50 .Q0M PRN TITRATE FOR BLOOD PRESSURE Protocol Titrate Magnesium Sulfate/Dextrose Confirm 09/06/20 19:25 Magnesium 1 Gm / 100 Ml D5w Administered 09/06/20 19:26 Dose 100 mls @ ud IV .STK-MED ONE Magnesium Sulfate/Dextrose Confirm 09/06/20 19:26 Magnesium 1 Gm / 100 Ml D5w Administered 09/06/20 19:27 Dose 100 mls @ ud IV .STK-MED ONE Sodium Chloride Confirm 09/06/20 14:07 Sodium Chloride 0.9% 1000 Ml Administered 09/06/20 14:08 Dose 1,000 mls @ ud .ROUTE .STK-MED ONE Chlorpromazine HCl 12.5 mg/ 100.5 mls @ 200 mls/hr 09/07/20 12:30 09/07/20 12:45 Sodium Chloride IV 09/07/20 13:00 200 mls/hr ONCE ONE Administration Chlorpromazine HCl 12.5 mg/ 100.5 mls @ 200 mls/hr 09/07/20 13:45 09/07/20 13:47 Sodium Chloride IV 09/07/20 14:15 200 mls/hr ONCE ONE Administration Ketorolac Tromethamine 30 mg 09/06/20 13:20 09/06/20 14:08 Toradol 30 Mg Injection IV 09/06/20 13:21 30 mg STAT ONE Administration Ketorolac Tromethamine Confirm 09/06/20 14:07 Toradol 30 Mg Injection Administered 09/06/20 14:08 Dose 30 mg .ROUTE .STK-MED ONE Lisinopril 20 mg 09/07/20 10:00 09/07/20 10:43 Zestril 20 Mg PO 10/07/20 09:59 20 mg DAILY ANABELLE Administration Metformin HCl 1,000 mg 09/07/20 08:00 09/07/20 07:37 Glucophage 500 Mg PO 10/07/20 07:59 1,000 mg BIDWMEALS ANABELLE Administration Methylprednisolone Sodium Succinate 125 mg 09/06/20 14:44 09/06/20 15:04 Solu-Medrol 125 Mg IV 09/06/20 14:45 125 mg STAT ONE Administration Methylprednisolone Sodium Succinate Confirm 09/06/20 14:50 Solu-Medrol 125 Mg Administered 09/06/20 14:51 Dose 125 mg .ROUTE .STK-MED ONE Montelukast Sodium 10 mg 09/07/20 10:00 09/07/20 10:43 Singulair 10 Mg PO 10/07/20 09:59 10 mg DAILY ANABELLE Administration Nalbuphine HCl 10 mg 09/07/20 10:00 09/07/20 10:09 Nubain 10 Mg/Ml IV 09/07/20 10:01 10 mg STAT ONE Administration Non-Formulary Dru each 09/07/20 10:00 09/07/20 10:45 Propranolol 80 Mg PO 10/07/20 09:59 1 each La Capsule DAILY ANABELLE Administration Oxycodone/Acetaminophen 1 tab 09/07/20 00:36 09/07/20 07:36 Oxycodone-Acetaminophen 10-325 PO 09/12/20 00:35 1 tab BID PRN PRN Administration PAIN Pantoprazole Sodium 40 mg 09/07/20 10:00 09/07/20 10:44 Protonix 40mg Tablet PO 10/07/20 09:59 40 mg DAILY ANABELLE Administration Prochlorperazine Edisylate 10 mg 09/06/20 13:22 09/06/20 14:09 Compazine 10 Mg/2 Ml IV 09/06/20 13:23 10 mg STAT ONE Administration Prochlorperazine Edisylate Confirm 09/06/20 14:07 Compazine 10 Mg/2 Ml Administered 09/06/20 14:08 Dose 10 mg .ROUTE .STK-MED ONE Propranolol HCl 80 mg 09/06/20 21:00 09/06/20 21:18 Inderal 20 Mg PO 09/06/20 21:01 80 mg STAT ONE Administration Ropinirole HCl 0.125 - 0.25 mg 09/07/20 10:00 09/07/20 10:42 Requip 0.5 Mg PO 10/07/20 09:59 0.125 mg DAILY ANABELLE Administration Simvastatin 40 mg 09/07/20 10:00 09/07/20 10:43 Zocor 20mg PO 10/07/20 09:59 40 mg DAILY ANABELLE Administration Tizanidine HCl 4 mg 09/07/20 07:30 09/07/20 07:41 Zanaflex 4 Mg PO 10/07/20 07:29 4 mg DAILY ANABELLE Administration Topiramate 100 mg 09/07/20 10:00 09/07/20 10:43 Topiramate PO 10/07/20 09:59 100 mg BID ANABELLE Administration Trazodone HCl 25 mg 09/07/20 10:00 09/07/20 10:42 Desyrel 50 Mg PO 10/07/20 09:59 25 mg DAILY ANABELLE Administration Verapamil HCl 120 mg 09/06/20 21:02 09/06/20 21:18 Calan 80 Mg PO 09/06/20 21:03 120 mg STAT ONE Administration Verapamil HCl 120 mg 09/07/20 10:00 09/07/20 10:44 Isoptin S.R. 240 Mg PO 10/07/20 09:59 120 mg DAILY ANABELLE Administration Intake & Output (Last 24 hours) 09/06/20 09/07/20 09/08/20 09/09/20 11:59 11:59 11:59 11:59 Intake Total 1495 720 Output Total 500 1000 Balance 995 -280 Weight 104.3 kg Code(s): I16.0 - HYPERTENSIVE URGENCY (2) Migraine Status: Resolved Code(s): G43.909 - MIGRAINE, UNSP, NOT INTRACTABLE, WITHOUT STATUS MIGRAINOSUS - Discharge Discharge Date: 09/07/20 Disposition: Home, Self-Care Condition: Stable Prescriptions: Continue Tizanidine HCl 4 mg PO DAILY Oxycodone / APAP 10/325 mg [Oxycodone-Acetaminophen 10-325] 1 tab PO BID Duloxetine HCl 60 mg PO DAILY ARIPiprazole [Aripiprazole] 5 mg DAILY Hydroxychloroquine Sulfate 200 mg PO DAILY Dicyclomine HCl 20 mg [Bentyl 20 mg] 20 mg PO TID Buspirone HCl [Buspar] 10 mg PO BID Atorvastatin Calcium [Lipitor] 40 mg PO DAILY Aspirin EC 81 mg [Ecotrin 81 mg] 81 mg PO DAILY Albuterol 8 gm Mdi Hfa [Ventolin Hfa MDI] 2 inh PO Q4H Hydroxyzine Pamoate 25 mg PO DAILY Lisinopril/Hydrochlorothiazide [Lisinopril-Hctz 20-12.5 mg Tab] 1 each PO DAILY Metformin HCl [Glucophage] 1,000 mg PO BID Montelukast Sodium 10 mg [Singulair 10 MG] 10 mg PO DAILY Omeprazole 20 mg PO DAILY Propranolol HCl [Propranolol HCl ER] 80 mg PO DAILY Ropinirole HCl [Requip] 0.5 - 1 tab PO DAILY Topiramate [Topamax] 100 mg PO BID Trazodone HCl 50 mg [Desyrel 50 mg] 25 mg PO DAILY Verapamil HCl [Verapamil ER] 120 mg PO DAILY Instructions: Migraines in Adults Follow up with: NEHAL SMITH NP [Primary Care Provider] -
== END 2020-09-07 18:20 | disposition home or self-care (01) ==
LOC: ED 12:54 → ICU 22:43
PROVIDERS: ADMIT General Practice; ATTEND General Practice
DX: I16.0 Hypertensive urgency (principal); G43.909 Migraine, unspecified, not intractable, without status migrainosus; Z79.899 Other long term (current) drug therapy; E11.9 Type 2 diabetes mellitus without complications; I10 Essential (primary) hypertension; E78.00 Pure hypercholesterolemia, unspecified; Z85.41 Personal history of malignant neoplasm of cervix uteri; Z20.828 Contact with and (suspected) exposure to other viral communicable diseases
CPT/HCPCS: 0241U; 36000; 36415; 70450; 80053; 82947; 83036; 83735; 85025; 93268; 94760; 94762; 96360; 96365; 96366; 96374; 96375; 99284; G0378; J1170; J1200; J1885; J2300; J2930; J3230; J3475; A9270-GY

== ENCOUNTER 2021-01-01 13:18 | Emergency (ER) | payer MEDICARE ==
[2021-01-01 13:35] VITALS: O2SAT 98
[2021-01-01] MEDS ORDERED: Sodium Chloride 0.9% 1000 ML 1,000 ML IV SCH (14:00)
--- NOTE | 2021-01-01 14:06 | ERPHSYRPT ---
- History of Present Illness Time Seen by Provider: 01/01/21 13:20 Historian: patient Exam Limitations: no limitations Patient Subjective Stated Complaint: weakness, fatigue, abd pain, diarrhea Triage Nursing Assessment: pt to ED c/o weakness, fatigue, abd pain, diarrhea x 1 week. no emesis or nausea reported. diarrhea is intermittent. rates 5/10 abd pain and generalized pain over entire body. ambulatory with steady gate. Physician History: 65 years old female with history of diabetes mellitus poorly controlled pres ented in the ER with 2 days history of off-and-on lower abdominal pain with multiple episodes of loose stool with no hematochezia. Patient also reports having generalized weakness fatigue going on for almost 1 week with initial difficulty ambulation/gait disturbance which is improving now. Reports having high blood sugar in upper 200s and her usual blood sugar in low 100s denies any urinary symptoms. No nausea or vomiting. No fever no chills but feels fatigued tired, drained out no energy to do anything. Vaccinated against COVID-19 Timing/Duration: day(s) (2), intermittent, gradual onset, worse Activities at Onset: rest Quality: dullness Abdominal Pain Onset Location: RLQ, LLQ, periumbilical Pain Radiation: no radiation Severity of Pain-Max: moderate Severity of Pain-Current: moderate Modifying Factors: Improves With: nothing Associated Symptoms: diarrhea, fatigue, No nausea, No vomiting Previous symptoms: no prior history Allergies/Adverse Reactions: gabapentin Allergy (Severe, Verified 01/01/21 13:35) fluoxetine HCl [From Prozac] Allergy (Intermediate, Verified 01/01/21 13:35) Hives Latex, Natural Rubber Allergy (Mild, Verified 01/01/21 13:35) Hives Home Medications: ARIPiprazole [Aripiprazole] 5 mg DAILY 11/16/18 [History] Duloxetine HCl 60 mg PO DAILY 11/16/18 [History] Oxycodone / APAP 10/325 mg [Oxycodone-Acetaminophen 10-325] 1 tab PO BID 11/16/18 [History] Tizanidine HCl 4 mg PO DAILY 11/16/18 [History] Albuterol 8 gm Mdi Hfa [Ventolin Hfa MDI] 2 inh PO Q4H 12/05/19 [History] Aspirin EC 81 mg [Ecotrin 81 mg] 81 mg PO DAILY 12/05/19 [History] Atorvastatin Calcium [Lipitor] 40 mg PO DAILY 12/05/19 [History] Buspirone HCl [Buspar] 10 mg PO BID 12/05/19 [History] Dicyclomine HCl 20 mg [Bentyl 20 mg] 20 mg PO TID 12/05/19 [History] Hydroxychloroquine Sulfate 200 mg PO DAILY 12/05/19 [History] Hydroxyzine Pamoate 25 mg PO DAILY 12/05/19 [History] Lisinopril/Hydrochlorothiazide [Lisinopril-Hctz 20-12.5 mg Tab] 1 each PO DAILY 12/05/19 [History] Metformin HCl [Glucophage] 1,000 mg PO BID 12/05/19 [History] Montelukast Sodium 10 mg [Singulair 10 MG] 10 mg PO DAILY 12/05/19 [History] Omeprazole 20 mg PO DAILY 12/05/19 [History] Propranolol HCl [Propranolol HCl ER] 80 mg PO DAILY 12/05/19 [History] Ropinirole HCl [Requip] 0.5 - 1 tab PO DAILY 12/05/19 [History] Topiramate [Topamax] 100 mg PO BID 12/05/19 [History] Trazodone HCl 50 mg [Desyrel 50 mg] 25 mg PO DAILY 12/05/19 [History] Verapamil HCl [Verapamil ER] 120 mg PO DAILY 12/05/19 [History] Hx Tetanus, Diphtheria Vaccination/Date Given: Yes Hx Influenza Vaccination/Date Given: Yes Hx Pneumococcal Vaccination/Date Given: Yes Immunizations Up to Date: Yes Travel Risk - International Travel Have you traveled outside of the country in past 3 weeks: No - Coronavirus Screening Are you exhibiting any of the following symptoms?: Yes Symptoms: Shortness of Breath, Vomiting/Diarrhea, Headaches/Body Aches/Fatigue Close contact with a COVID-19 positive Pt in past 14-21 Days: No - Vaccine Status Have you recieved a Covid-19 vaccination: Yes Pediatric Oncology Nurse: Moderna - Vaccination Dates Date of 2cond Vaccination (if applicable): unknown - Review of Systems Constitutional: Fatigue, Weakness Eyes: No Symptoms Ears, Nose, & Throat: No Symptoms Respiratory: No Symptoms Cardiac: No Symptoms Abdominal/Gastrointestinal: Abdominal Pain, Diarrhea Genitourinary Symptoms: No Symptoms Musculoskeletal: Myalgias Skin: No Symptoms Neurological: Gait Changes Psychological: No Symptoms Hematologic/Lymphatic: No Symptoms Immunological/Allergic: No Symptoms - Past Medical History Pertinent Past Medical History: Yes (sarcoidosis, migraine, hypoxia) Neurological History: Migraines, Peripheral Neuropathy ENT History: Other Cardiac History: High Cholesterol, Hypertension, Myocardial Infarction ([place]) Respiratory History: Other Endocrine Medical History: Diabetes Type II, Liver Disease Musculoskeletal History: Arthritis, Fibromyalgia, Osteoarthritis GI Medical History: Diverticulitis, Hernia, Irritable Bowel History: No Pertinent History Psycho-Social History: Anxiety, Depression Female Reproductive Disorders: Cervical Cancer Other Medical History: HX OF CERVICAL CANCER (TREATED VIA SURGERY). HX OF LUNG DISEASE (SEES DR. SHELBY) - REPORTS HAS INCREASED PRESSUE IN THE LUNGS. STATES [place] WAS "DRUG INDUCED" AFTER SURGERY. GERD, HX OF STOMACH ULCER. ANXIETY, DEPRESSION. SEES DR. KEIKO SON FOR MEDICATION FOR CHRONIC PAIN. - Past Surgical History Past Surgical History: Yes Neuro Surgical History: No Pertinent History Cardiac: No Pertinent History, Cardiac Catheterization Respiratory: No Pertinent History Gastrointestinal: Cholecystectomy, Hernia Repair Genitourinary: No Pertinent History Musculoskeletal: No Pertinent History Female Surgical History: Hysterectomy - Social History Smoking Status: Never smoker Exposure to second hand smoke: Yes Drug Use: none Patient Lives Alone: Yes - Female History Hx Now: No - Nursing Vital Signs Nursing Vital Signs: Initial Vital Signs Temperature 98.1 F 01/01/21 13:28 Pulse Rate 69 01/01/21 13:28 Respiratory Rate 20 01/01/21 13:28 Blood Pressure 162/66 01/01/21 13:28 O2 Sat by Pulse Oximetry 98 01/01/21 13:28 Pain Scale Pain Intensity 5 - Physical Exam General Appearance: no apparent distress, alert, anxiety Eye Exam: PERRL/EOMI, eyes nml inspection Ears, Nose, Throat Exam: normal ENT inspection, TMs normal, pharynx normal Neck Exam: normal inspection, non-tender, full range of motion Respiratory Exam: normal breath sounds, lungs clear Cardiovascular Exam: regular rate/rhythm, normal heart sounds Gastrointestinal/Abdomen Exam: soft, normal bowel sounds, tenderness (Lower abdomen bilaterally without guarding or rebound) Back Exam: normal inspection Extremity Exam: normal inspection, normal range of motion Neurologic Exam: alert, oriented x 3, cooperative, preflight inspector II-XII nml as tested, normal mood/affect, nml cerebellar function, sensation nml, No motor deficits, No sensory deficit Skin Exam: normal color SpO2 Interpretation: normal SpO2: 98 O2 Delivery: Room Air Ordered Tests: Active Orders 24 hr Category Date Time Status IV Insertion STAT Care 01/01/21 13:47 Active NPO (ED) STAT Care 01/01/21 13:47 Active ABDOMEN AND PELVIS W/0 CONTRAS [CT] Stat Exams 01/01/21 14:14 Taken CHEST 1 VIEW (PORTABLE) Stat Exams 01/01/21 14:10 Taken HEAD WITHOUT CONTRAST [CT] Stat Exams 01/01/21 13:48 Taken BLOOD CULTURE Stat Lab 01/01/21 14:57 Received CBC W DIFF Stat Lab 01/01/21 15:00 Completed CMP Stat Lab 01/01/21 15:00 Completed CULTURE,URINE Stat Lab 01/01/21 15:22 Received LIPASE Stat Lab 01/01/21 15:00 Completed Lactic Acid Stat Lab 01/01/21 13:47 Completed MAG [MAGNESIUM] Stat Lab 01/01/21 15:00 Completed TROPONIN Q3H Lab 01/01/21 15:00 Completed TROPONIN Q3H Lab 01/01/21 17:00 Ordered TROPONIN Q3H Lab 01/01/21 20:00 Ordered TROPONIN Q3H Lab 01/01/21 23:00 Ordered TROPONIN Q3H Lab 01/02/21 02:00 Ordered TSH [TSH, 3RD Generation] Stat Lab 01/01/21 15:00 Completed UA W/RFX UR CULTURE Stat Lab 01/01/21 15:22 Completed Medication Summary Generic Name Dose Route Start Last Admin Trade Name Freq PRN Reason Stop Dose Admin Sodium Chloride 1,000 mls @ 125 mls/hr 01/01/21 14:00 01/01/21 14:47 Sodium Chloride 0.9% 1000 Ml IV 01/31/21 13:59 125 mls/hr .Q8H ANABELLE Administration Discontinued Medications Generic Name Dose Route Start Last Admin Trade Name Freq PRN Reason Stop Dose Admin Acetaminophen 1,000 mg 01/01/21 15:49 01/01/21 15:51 Tylenol Extra Strength 500 Mg PO 01/01/21 15:50 1,000 mg STAT ONE Administration Acetaminophen Confirm 01/01/21 15:51 Tylenol Extra Strength 500 Mg Administered 01/01/21 15:52 Dose 1,000 mg .ROUTE .STK-MED ONE Lab/Rad Data: Laboratory Result Diagrams 01/01/21 15:00 01/01/21 15:00 Laboratory Results 01/01/21 01/01/21 01/01/21 Range/Units 15: 15:00 15:00 WBC (4.0-10.5) K/mm3 RBC (4.1-5.4) M/mm3 Hgb (12.0-16.0) gm/dl Hct (35-47) % MCV (78-100) fl MCH (26-32) pg MCHC (32-36) g/dl RDW (11.5-14.0) % Plt Count (150-450) K/mm3 MPV (7.5-11.0) fl Gran % (36.0-66.0) % Eos # (Auto) (0-0.5) Absolute Lymphs (auto) (1.0-4.6) Absolute Monos (auto) (0.0-1.3) Lymphocytes % (24.0-44.0) % Monocytes % (0.0-12.0) % Eosinophils % (0.00-5.0) % Basophils % (0.0-0.4) % Absolute Granulocytes (1.4-6.9) Basophils # (0-0.4) Sodium (137-145) mmol/L Potassium (3.5-5.1) mmol/L Chloride (98-107) mmol/L Carbon Dioxide (22-30) mmol/L Anion Gap (5-15) MEQ/L BUN (7-17) mg/dL Creatinine (0.52-1.04) mg/dL Estimated GFR ML/MIN Glucose (74-106) mg/dL Lactic Acid (0.4-2.0) Calcium (8.4-10.2) mg/dL Magnesium 1.7 (1.6-2.3) mg/dL Total Bilirubin (0.2-1.3) mg/dL AST (14-36) U/L ALT (0-35) U/L Alkaline Phosphatase (38-126) U/L Troponin I < 0.012 (0.000-0.034) ng/mL Serum Total Protein (6.3-8.2) g/dL Albumin (3.5-5.0) g/dL Lipase (23-300) U/L TSH 3rd Generation 1.830 (0.47-4.68) mIU/L Urine Color YELLOW (YELLOW) Urine Appearance SLIGHTLY CLOUDY (CLEAR) Urine pH 6.0 (5-6) Ur Specific [place] 1.027 (1.005-1.025) Urine Protein 30 (Negative) Urine Ketones NEGATIVE (NEGATIVE) Urine Blood NEGATIVE (0-5) Jason/ul Urine Nitrite NEGATIVE (NEGATIVE) Urine Bilirubin SMALL (NEGATIVE) Urine Urobilinogen NEGATIVE (0-1) mg/dL Ur Leukocyte Esterase TRACE (NEGATIVE) Urine WBC (Auto) 3-5 (0-5) /HPF Urine RBC (Auto) 11-15 (0-2) /HPF U Epithel Cells (Auto) RARE (FEW) /HPF Urine Bacteria (Auto) RARE (NEGATIVE) /HPF Urine Mucus (Auto) SLIGHT (NEGATIVE) /HPF Urine Culture Reflexed YES (NO) Urine Glucose NEGATIVE (NEGATIVE) mg/dL 01/01/21 01/01/21 01/01/21 Range/Units 15:00 15:00 13:47 WBC 5.7 (4.0-10.5) K/mm3 RBC 4.50 (4.1-5.4) M/mm3 Hgb 11.9 L (12.0-16.0) gm/dl Hct 39.1 (35-47) % MCV 86.9 (78-100) fl MCH 26.4 (26-32) pg MCHC 30.4 L (32-36) g/dl RDW 14.9 H (11.5-14.0) % Plt Count 188 (150-450) K/mm3 MPV 10.0 (7.5-11.0) fl Gran % 55.7 (36.0-66.0) % Eos # (Auto) 0.22 (0-0.5) Absolute Lymphs (auto) 1.67 (1.0-4.6) Absolute Monos (auto) 0.62 (0.0-1.3) Lymphocytes % 29.2 (24.0-44.0) % Monocytes % 10.8 (0.0-12.0) % Eosinophils % 3.8 (0.00-5.0) % Basophils % 0.5 (0.0-0.4) % Absolute Granulocytes 3.18 (1.4-6.9) Basophils # 0.03 (0-0.4) Sodium 141 (137-145) mmol/L Potassium 3.9 (3.5-5.1) mmol/L Chloride 109 H (98-107) mmol/L Carbon Dioxide 21 L (22-30) mmol/L Anion Gap 15.3 H (5-15) MEQ/L BUN 14 (7-17) mg/dL Creatinine 0.83 (0.52-1.04) mg/dL Estimated GFR > 60.0 ML/MIN Glucose 165 H (74-106) mg/dL Lactic Acid 1.2 (0.4-2.0) Calcium 9.5 (8.4-10.2) mg/dL Magnesium (1.6-2.3) mg/dL Total Bilirubin 0.30 (0.2-1.3) mg/dL AST 57 H (14-36) U/L ALT 23 (0-35) U/L Alkaline Phosphatase 120 (38-126) U/L Troponin I (0.000-0.034) ng/mL Serum Total Protein 7.9 (6.3-8.2) g/dL Albumin 4.2 (3.5-5.0) g/dL Lipase 236 (23-300) U/L TSH 3rd Generation (0.47-4.68) mIU/L Urine Color (YELLOW) Urine Appearance (CLEAR) Urine pH (5-6) Ur Specific [place] (1.005-1.025) Urine Protein (Negative) Urine Ketones (NEGATIVE) Urine Blood (0-5) Jason/ul Urine Nitrite (NEGATIVE) Urine Bilirubin (NEGATIVE) Urine Urobilinogen (0-1) mg/dL Ur Leukocyte Esterase (NEGATIVE) Urine WBC (Auto) (0-5) /HPF Urine RBC (Auto) (0-2) /HPF U Epithel Cells (Auto) (FEW) /HPF Urine Bacteria (Auto) (NEGATIVE) /HPF Urine Mucus (Auto) (NEGATIVE) /HPF Urine Culture Reflexed (NO) Urine Glucose (NEGATIVE) mg/dL - Progress Progress: improved, re-examined Progress Note: 01/01/21 16:20 65 years old is evaluated for multiple complaints. Proctoscopy is done which is grossly negative for any acute findings. No evidence of stroke, nonfocal neuro exam. Chest x-ray no acute cardiopulmonary findings. Chemistry profile mild dehydration and CT is negative for any acute abdominal findings no evidence of infection. Recommended hydration, Zofran to take as needed will get outpatient Covid test as well. Counseled pt/family regarding: lab results, diagnosis, need for follow-up, rad results - Departure Departure Disposition: Home Clinical Impression: Viral syndrome, Generalized weakness Condition: Stable Critical Care Time: No Referrals: NEHAL SMITH, SPECIAL DISTRIBUTION CLERK [Primary Care Provider] - (1-2 days for reevaluation) Instructions: Generalized Weakness (DC), Viral Syndrome (DC) Additional Instructions: Keep yourself well-hydrated. Follow-up with primary care for reevaluation. . Return to ER for worsening generalized weakness, diarrhea or if develop fever chills/shortness of breath etc.
[2021-01-01] MEDS ORDERED: Sodium Chloride 0.9% 1000 ML 1,000 ML ONE (14:45)
[2021-01-01 15:18] LABS: Absolute Neutrophil Ct (ANC) 3.18 (1.4-6.9); BASOPHIL % 0.5 % (0.0-0.4); Basophil (Absolute #) 0.03 (0-0.4); Eosinophil % 3.8 % (0.00-5.0); Eosinophil (Absolute #) 0.22 (0-0.5); Hematocrit 39.1 % (35-47); Hemoglobin 11.9 gm/dl (12.0-16.0); Lymphocyte (Absolute #) 1.67 (1.0-4.6); Lymphocytes % 29.2 % (24.0-44.0); Mean Cell Volume 86.9 fl (78-100); Mean Corpuscular Hemoglobin 26.4 pg (26-32); Mean Corpuscular Hgb Concent. 30.4 g/dl (32-36); Monocyte (Absolute #) 0.62 (0.0-1.3); Monocytes % 10.8 % (0.0-12.0); Neutrophil % 55.7 % (36.0-66.0); Platelet Count 188 K/mm3 (150-450); Red Cell Distribution Width 14.9 % (11.5-14.0); White Blood Count 5.7 K/mm3 (4.0-10.5)
[2021-01-01 15:22] VITALS: BP 138/55; PULSE 70
[2021-01-01 15:30] LABS: Appearance SLIGHTLY CLOUDY (CLEAR); Bacteria RARE /HPF (NEGATIVE); Bilirubin SMALL (NEGATIVE); Blood NEGATIVE Ery/ul (0-5); Epithelial Cells RARE /HPF (FEW); Glucose NEGATIVE (NEGATIVE); Ketones NEGATIVE (NEGATIVE); Leukocyte Esterase TRACE (NEGATIVE); Mucus SLIGHT /HPF (NEGATIVE); Nitrite NEGATIVE (NEGATIVE); Protein,Urine Dip 30 (Negative); Specific Gravity 1.027 (1.005-1.025); Urobilinogen NEGATIVE mg/dL (0-1)
[2021-01-01 15:33] LABS: ALBUMIN 4.2 g/dL (3.5-5.0); ALKALINE PHOSPHATASE 120 U/L (38-126); ANION GAP 15.3 MEQ/L (5-15); BLOOD UREA NITROGEN 14 mg/dL (7-17); CHLORIDE 109 mmol/L (98-107); Calcium 9.5 mg/dL (8.4-10.2); Carbon Dioxide 21 mmol/L (22-30); Creatinine 1 0.83 mg/dL (0.52-1.04); EST GLOMERULAR FILTRATION RATE > 60.0 ML/MIN; Glucose 165 mg/dL (74-106); LIPASE 236 U/L (23-300); Potassium 3.9 mmol/L (3.5-5.1); SGOT/AST 57 U/L (14-36); SGPT/ALT 23 U/L (0-35); SODIUM 141 mmol/L (137-145); Total Protein 7.9 g/dL (6.3-8.2)
[2021-01-01] MEDS ORDERED: TYLENOL EXTRA STRENGTH 500 MG PO ONE (15:49)
[2021-01-01] MEDS ORDERED: TYLENOL EXTRA STRENGTH 500 MG ONE (15:51)
[2021-01-01 15:55] LABS: MAGNESIUM 1.7 mg/dL (1.6-2.3); TSH, 3RD Generation 1.83 mIU/L (0.47-4.68)
--- NOTE | 2021-01-01 18:32 | XRAY ---
Indication: Headache and body ache. Stroke. Suspect COVID 19. Multiple contiguous axial images obtained through the head without contrast. Comparison: September 06, 2020. Normal appearing brain parenchyma, ventricles, and bony calvarium for patient's age. Visualized paranasal sinuses and mastoid air cells are clear. Impression: Continued normal CT head without contrast exam. Comment: Preliminary interpretation made by [facility]. No critical discrepancy.
--- NOTE | 2021-01-01 18:38 | XRAY ---
Indication: Headache and body ache. Stroke. Suspect COVID 19. Multiple contiguous axial images obtained through the abdomen and pelvis without contrast. Comparison: September 10, 2018. Lung bases again demonstrates minimal bibasilar subsegmental atelectasis/scarring. No infiltrate or effusion. Heart not enlarged. Stable small hiatal hernia. Noncontrasted stomach and bowel loops nonobstructed. Again scattered colonic diverticulosis without diverticulitis. Intact sigmoid anastomosis. Again appendectomy, cholecystectomy, and hysterectomy reported. Intact ventral hernia mesh without abnormal fluid or air collection. Again fatty hepatomegaly measuring 20 cm and splenomegaly measuring 14.9 cm. Remaining liver, pancreas, spleen, adrenal glands, kidneys, ureters, and bladder are unremarkable for noncontrast exam. Stable minimal aortoiliac calcifications without AAA. Osseous structures intact again with mild degenerative changes throughout the spine. Impression: 1. Again small hiatal hernia, colonic diverticulosis, fatty hepatomegaly, splenomegaly, and chronic bony findings. 2. Remaining CT abdomen/pelvis without contrast exam is negative. Comment: Preliminary interpretation made by [facility]. No critical discrepancy.
--- NOTE | 2021-01-01 18:38 | XRAY ---
Indication: Fever, cough, and short of breath. Suspect COVID 19. Comparison: December 05, 2019. Portable chest clear. Heart remains borderline enlarged. Bony thorax intact. No new/acute findings.
== END 2021-01-01 17:45 | disposition home or self-care (01) ==
LOC: ED 13:18
DX: B34.9 Viral infection, unspecified (principal); M62.81 Muscle weakness (generalized); Z79.899 Other long term (current) drug therapy
CPT/HCPCS: 36000; 36415; 70450; 71045; 74176; 80053; 81001; 83605; 83690; 83735; 84443; 84484; 85025; 87040; 87086; 96360; 96361; 99284; U0003; A9270-GY

== ENCOUNTER 2021-05-13 11:31 | Emergency (ER) | payer MEDICARE ==
[2021-05-13] MEDS ORDERED: MORPHINE SULFATE 4 MG INJ IV ONE (12:09)
[2021-05-13] MEDS ORDERED: BENADRYL 50 MG/ML IV ONE (12:09)
[2021-05-13] MEDS ORDERED: Reglan 10 MG/2 ML IV ONE (12:09)
[2021-05-13] MEDS ORDERED: TYLENOL 325 MG PO ONE (12:09)
[2021-05-13] MEDS ORDERED: BENADRYL 50 MG/ML ONE (12:14)
[2021-05-13] MEDS ORDERED: TYLENOL 325 MG ONE (12:15)
[2021-05-13] MEDS ORDERED: MORPHINE SULFATE 4 MG INJ ONE (12:15)
[2021-05-13] MEDS ORDERED: Reglan 10 MG/2 ML ONE (12:15)
--- NOTE | 2021-05-13 12:22 | ERPHSYRPT ---
- History of Present Illness Time Seen by Provider: 05/13/21 11:51 Source: patient Exam Limitations: no limitations Patient Subjective Stated Complaint: migraine which began this morning Triage Nursing Assessment: Pt brought to the ER by her boyfriend, hypertensive, rates head pain as 7/10, hx of migraines, takes monthly shot and a tablet when she gets a headache, pt took two tablets today, pulses normal, N&V, woke with the migraine, denies dizziness, skin n/w/d Physician History: 65-year-old female with history of hypertension, hyperlipidemia, anxiety, depression, migraine presented to the ER with chief complaint of worsening frontal headache since 9:30 AM today, continuous, moderate to severe intensity, sharp throbbing, more with bright light and partial relief with sitting and acquired from. She took her routine home medication with no significant relief. Reports associated nausea and couple of episodes of nonprojectile, nonbilious vomiting without hematemesis. Denies any neck pain, visual disturbance, numbness tingling or focal weakness. No difficulty speech. Does not think this is the worst headache of her life and have similar episodes multiple times in the past. No fever or chills reported. Patient has a blood pressure in 200s which according to her every time she has a bad migraine it goes up. Timing/Duration: today, constant, gradual onset, worse Quality: sharpness Head Pain Location: frontal Severity of Pain-Max: severe Severity of Pain-Current: moderate Recent Head Trauma: no recent headache/trauma, frequent headaches Modifying Factors: Improves With: exposure to light, noise Associated Symptoms: nausea/vomiting, sensitive to light, No dizziness, No fatigue, No fever/chills, No flushing, No light-headedness, No loss of consciousness, No nasal congestion, No nasal drainage, No neck pain, No numbness in legs/feet, No rash, No sweating, No scotoma, No seizures, No sinus infection, No speech problems, No stiff neck, No trouble walking, No vision changes, No visual disturbance, No weakness Previous symptoms: same symptoms as today Allergies/Adverse Reactions: gabapentin Allergy (Severe, Verified 05/13/21 11:42) fluoxetine HCl [From Prozac] Allergy (Intermediate, Verified 05/13/21 11:42) Hives Latex, Natural Rubber Allergy (Mild, Verified 05/13/21 11:42) Hives Home Medications: ARIPiprazole [Aripiprazole] 5 mg DAILY 11/16/18 [History] Duloxetine HCl 60 mg PO DAILY 11/16/18 [History] Oxycodone / APAP 10/325 mg [Oxycodone-Acetaminophen 10-325] 1 tab PO TID 11/16/18 [History] Tizanidine HCl 4 mg PO DAILY 11/16/18 [History] Albuterol 8 gm Mdi Hfa [Ventolin Hfa MDI] 2 inh PO Q4H 12/05/19 [History] Aspirin EC 81 mg [Ecotrin 81 mg] 81 mg PO DAILY 12/05/19 [History] Atorvastatin Calcium [Lipitor] 40 mg PO DAILY 12/05/19 [History] Buspirone HCl [Buspar] 10 mg PO BID 12/05/19 [History] Dicyclomine HCl 20 mg [Bentyl 20 mg] 20 mg PO TID 12/05/19 [History] Hydroxychloroquine Sulfate 200 mg PO DAILY 12/05/19 [History] Lisinopril/Hydrochlorothiazide [Lisinopril-Hctz 20-12.5 mg Tab] 1 each PO DAILY 12/05/19 [History] Metformin HCl [Glucophage] 1,000 mg PO BID 12/05/19 [History] Montelukast Sodium 10 mg [Singulair 10 MG] 10 mg PO DAILY 12/05/19 [History] Omeprazole 20 mg PO DAILY 12/05/19 [History] Propranolol HCl [Propranolol HCl ER] 80 mg PO DAILY 12/05/19 [History] Ropinirole HCl [Requip] 0.5 - 1 tab PO DAILY 12/05/19 [History] Topiramate [Topamax] 100 mg PO BID 12/05/19 [History] Trazodone HCl 50 mg [Desyrel 50 mg] 25 mg PO DAILY 12/05/19 [History] Verapamil HCl [Verapamil ER] 120 mg PO DAILY 12/05/19 [History] hydrOXYzine pamoate [Hydroxyzine Pamoate] 25 mg PO DAILY 12/05/19 [History] Erenumab-Aooe [Aimovig Autoinjector] 70 mg SQ UD 05/13/21 [History] Glipizide [Glipizide ER] 5 mg PO DAILY 05/13/21 [History] Metformin HCl [Metformin ER Gastric] 1,000 mg PO BID 05/13/21 [History] Potassium Chloride [Klor-Con M20] 20 meq PO BID 05/13/21 [History] Pregabalin 150 mg PO DAILY 05/13/21 [History] Sildenafil Citrate [Sildenafil] 20 mg PO TID 05/13/21 [History] Hx Tetanus, Diphtheria Vaccination/Date Given: Yes Hx Influenza Vaccination/Date Given: Yes Hx Pneumococcal Vaccination/Date Given: Yes Travel Risk - International Travel Have you traveled outside of the country in past 3 weeks: No - Coronavirus Screening Are you exhibiting any of the following symptoms?: No Close contact with a COVID-19 positive Pt in past 14-21 Days: No - Vaccine Status Have you recieved a Covid-19 vaccination: Yes 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: [employer] - Vaccination Dates Date of 2cond Vaccination (if applicable): 10/2020 - Review of Systems Constitutional: No Symptoms Eyes: No Symptoms Ears, Nose, & Throat: No Symptoms Respiratory: No Symptoms Cardiac: No Symptoms Abdominal/Gastrointestinal: No Symptoms Genitourinary Symptoms: No Symptoms Musculoskeletal: No Symptoms Skin: No Symptoms Neurological: Headache Psychological: No Symptoms Endocrine: No Symptoms Hematologic/Lymphatic: No Symptoms - Past Medical History Pertinent Past Medical History: Yes (sarcoidosis, migraine, hypoxia) Neurological History: Migraines, Peripheral Neuropathy ENT History: Other Cardiac History: High Cholesterol, Hypertension, Myocardial Infarction ([place]) Respiratory History: Other Endocrine Medical History: Diabetes Type II, Liver Disease Musculoskeletal History: Arthritis, Fibromyalgia, Osteoarthritis GI Medical History: Cirrhosis, Diverticulitis, Hernia, Irritable Bowel History: No Pertinent History Psycho-Social History: Anxiety, Depression Female Reproductive Disorders: Cervical Cancer Other Medical History: HX OF CERVICAL CANCER (TREATED VIA SURGERY). HX OF LUNG DISEASE (SEES DR. SHELBY) - REPORTS HAS INCREASED PRESSUE IN THE LUNGS. STATES AL WAS "DRUG INDUCED" AFTER SURGERY. GERD, HX OF STOMACH ULCER. ANXIETY, DEPRESSION. SEES DR. KEIKO SON FOR MEDICATION FOR CHRONIC PAIN. - Past Surgical History Past Surgical History: Yes Neuro Surgical History: No Pertinent History Cardiac: No Pertinent History, Cardiac Catheterization Respiratory: No Pertinent History Gastrointestinal: Cholecystectomy, Hernia Repair Genitourinary: No Pertinent History Musculoskeletal: No Pertinent History Female Surgical History: Hysterectomy - Social History Smoking Status: Never smoker Exposure to second hand smoke: Yes Drug Use: none Patient Lives Alone: Yes - Female History Hx Now: No - Nursing Vital Signs Nursing Vital Signs: Initial Vital Signs Temperature 97.8 F 05/13/21 11:34 Pulse Rate 89 05/13/21 11:34 Blood Pressure 234/104 05/13/21 11:34 O2 Sat by Pulse Oximetry 98 05/13/21 11:34 Pain Scale Pain Intensity 3 - Physical Exam General Appearance: no apparent distress, alert Eye Exam: PERRL/EOMI, eyes nml inspection Ears, Nose, Throat Exam: normal ENT inspection, TMs normal, pharynx normal, marla st mucous membranes Neck Exam: normal inspection, non-tender, supple, full range of motion, No meningismus Respiratory Exam: normal breath sounds, lungs clear Cardiovascular Exam: regular rate/rhythm, normal heart sounds Gastrointestinal/Abdominal Exam: soft, normal bowel sounds, No tenderness Back Exam: normal inspection Extremity Exam: normal inspection, normal range of motion Mental Status Exam: alert, oriented x 3, 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 Exam: normal hearing, normal speech, PERRL Coordination/Gait Exam: normal finger to nose, normal cerebellar function Motor/Sensory Exam: no motor deficit, no sensory deficit, no pronator drift, negative Babinski's sign DTR Exam: bicep (R): 2+, bicep (L): 2+, knee (R): 2+, knee (L): 2+ Skin Exam: normal color SpO2 Interpretation: normal SpO2: 98 O2 Delivery: Room Air Ordered Tests: Medication Summary Discontinued Medications Generic Name Dose Route Start Last Admin Trade Name Valeria PRN Reason Stop Dose Admin Acetaminophen 975 mg 05/13/21 12:09 05/13/21 12:17 Acetaminophen 325 Mg Tablet PO 05/13/21 12:10 975 mg STAT ONE Administration Acetaminophen Confirm 05/13/21 12:15 Acetaminophen 325 Mg Tablet Administered 05/13/21 12:16 Dose 975 mg .ROUTE .STK-MED ONE Diphenhydramine HCl 25 mg 05/13/21 12:09 05/13/21 12:17 Diphenhydramine Hcl 50 Mg/Ml Vial IV 05/13/21 12:10 25 mg STAT ONE Administration Diphenhydramine HCl Confirm 05/13/21 12:14 Diphenhydramine Hcl 50 Mg/Ml Vial Administered 05/13/21 12:15 Dose 50 mg .ROUTE .STK-MED ONE Hydromorphone HCl 1 mg 05/13/21 12:56 05/13/21 13:06 Hydromorphone 1 Mg/1ml Inj 1 Mg/Ml Syringe IV 05/13/21 12:57 1 mg STAT ONE Administration Hydromorphone HCl Confirm 05/13/21 13:03 Hydromorphone 1 Mg/1ml Inj 1 Mg/Ml Syringe Administered 05/13/21 13:04 Dose 1 mg .ROUTE .STK-MED ONE Metoclopramide HCl 10 mg 05/13/21 12:09 05/13/21 12:17 Metoclopramide Hcl 10 Mg/2 Ml Vial IV 05/13/21 12:10 10 mg STAT ONE Administration Metoclopramide HCl Confirm 05/13/21 12:15 Metoclopramide Hcl 10 Mg/2 Ml Vial Administered 05/13/21 12:16 Dose 10 mg .ROUTE .STK-MED ONE Morphine Sulfate 4 mg 05/13/21 12:09 05/13/21 12:17 Morphine Sulfate 4 Mg/Ml Injection IV 05/13/21 12:10 4 mg STAT ONE Administration Morphine Sulfate Confirm 05/13/21 12:15 Morphine Sulfate 4 Mg/Ml Injection Administered 05/13/21 12:16 Dose 4 mg .ROUTE .STK-MED ONE - Progress Progress: improved Air Movement: good Progress Note: 05/13/21 she is given symptomatic treatment for headache. On reevaluation her h eadache is improved and blood pressure also improved. He has a nonfocal neuro exam throughout stay in the ER. Headache is similar to previous episodes and does not think this is the worst headache of her life. Not on any blood thinners. Do not think she needs CT imaging or any other work-up and is stable for discharge. Patient is advised to follow-up outpatient with her primary care neurologist for reevaluation. Discussed signs symptoms of worsening needing return to ER which she seems understanding. 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 Return to ER for worsening headache or if having numbness tingling or focal weakness. Monitor your blood pressure regularly, given keep a log and follow-up outpatient with primary care to see if needs adjustment in medications. Also return to ER for chest pain palpitations or shortness of breath.
[2021-05-13] MEDS ORDERED: Hydromorphone 1 mg/ml Injection IV ONE (12:56)
[2021-05-13] MEDS ORDERED: Hydromorphone 1 mg/ml Injection ONE (13:03)
[2021-05-13 13:12] VITALS: BP 124/54
[2021-05-13 14:19] VITALS: PULSE 90
[2021-05-16 21:16] VITALS: O2SAT 98
== END 2021-05-13 14:23 | disposition home or self-care (01) ==
LOC: ED 11:31
DX: G43.909 Migraine, unspecified, not intractable, without status migrainosus (principal); R11.2 Nausea with vomiting, unspecified; E78.5 Hyperlipidemia, unspecified; I10 Essential (primary) hypertension; E11.42 Type 2 diabetes mellitus with diabetic polyneuropathy; Z79.84 Long term (current) use of oral hypoglycemic drugs; Z79.891 Long term (current) use of opiate analgesic; Z79.899 Other long term (current) drug therapy
CPT/HCPCS: 36000; 96374; 96375; 99284; J1170; J1200; J2270; A9270-GY

== ENCOUNTER 2021-05-31 15:19 | Emergency (ER) | payer MEDICARE ==
[2021-05-31] MEDS ORDERED: MORPHINE SULFATE 4 MG INJ IV ONE (16:03)
[2021-05-31] MEDS ORDERED: Zofran 4 MG/2 ML VIAL IV ONE (16:03)
[2021-05-31] MEDS ORDERED: TYLENOL 325 MG PO ONE (16:03)
[2021-05-31] MEDS ORDERED: Zofran 4 MG/2 ML VIAL ONE (16:12)
--- NOTE | 2021-05-31 16:12 | ERPHSYRPT ---
- History of Present Illness Time Seen by Provider: 05/31/21 15:52 Source: patient Exam Limitations: no limitations Patient Subjective Stated Complaint: Cough Triage Nursing Assessment: Patient ambulated back to ED and transferred self to bed. Patient A+O X3. Patient's skin pink, warm and dry. Patient complains of cough, SOB at night, bodyaches, fatigue, fever, diarrhea and loss of taste for 3 days. Patient states her daughter is covid +. Patient was tested yesterday for COVID and was negative. Patient complains of body aches 11/19. Patient complains of non productive cough. Lungs clear a/p belkys. Physician History: 66 years old female with multiple medical problems, vaccinated for COVID-19 presented in the ER with chief complaint COVID symptoms for the last 3 days with generalized body ache fatigue tiredness, subjective feeling of fever chills, wet-to-dry cough with generalized chest soreness and sinus drainage causing more cough and shortness of breath with lying down better with sitting up and ambulating. She also has history of multiple diverticulitis and was recently started on antibiotics by primary care. Denies any vomiting or diarrhea. Patient was tested for COVID yesterday which turned out to be negative. Patient has a blood pressure of 250/89 on presentation, denies any headache, visual di sturbance, numbness tingling or focal weakness. Timing/Duration: day(s) (3), gradual onset, worse Cough Quality/Degree: moderate Possible Cause: illness exposure Modifying Factors: Worsens With: coughing, lying down Associated Symptoms: fever, chills, chest pain/soreness, cough, headache, muscle aches, nasal congestion, nasal drainage, shortness of breath, sinus infection, sore throat, wheezing Allergies/Adverse Reactions: gabapentin Allergy (Severe, Verified 05/31/21 15:32) fluoxetine HCl [From Prozac] Allergy (Intermediate, Verified 05/31/21 15:32) Hives Latex, Natural Rubber Allergy (Mild, Verified 05/31/21 15:32) Hives Home Medications: ARIPiprazole [Aripiprazole] 5 mg DAILY 11/16/18 [History] Duloxetine HCl 60 mg PO DAILY 11/16/18 [History] Oxycodone / APAP 10/325 mg [Oxycodone-Acetaminophen 10-325] 1 tab PO TID 11/16/18 [History] Tizanidine HCl 4 mg PO DAILY 11/16/18 [History] Albuterol 8 gm Mdi Hfa [Ventolin Hfa MDI] 2 inh PO Q4H 12/05/19 [History] Aspirin EC 81 mg [Ecotrin 81 mg] 81 mg PO DAILY 12/05/19 [History] Atorvastatin Calcium [Lipitor] 40 mg PO DAILY 12/05/19 [History] Buspirone HCl [Buspar] 10 mg PO BID 12/05/19 [History] Dicyclomine HCl 20 mg [Bentyl 20 mg] 20 mg PO TID 12/05/19 [History] Hydroxychloroquine Sulfate 200 mg PO DAILY 12/05/19 [History] Lisinopril/Hydrochlorothiazide [Lisinopril-Hctz 20-12.5 mg Tab] 1 each PO DAILY 12/05/19 [History] Metformin HCl [Glucophage] 1,000 mg PO BID 12/05/19 [History] Montelukast Sodium 10 mg [Singulair 10 MG] 10 mg PO DAILY 12/05/19 [History] Omeprazole 20 mg PO DAILY 12/05/19 [History] Propranolol HCl [Propranolol HCl ER] 80 mg PO DAILY 12/05/19 [History] Ropinirole HCl [Requip] 0.5 - 1 tab PO DAILY 12/05/19 [History] Topiramate [Topamax] 100 mg PO BID 12/05/19 [History] Trazodone HCl 50 mg [Desyrel 50 mg] 25 mg PO DAILY 12/05/19 [History] Verapamil HCl [Verapamil ER] 120 mg PO DAILY 12/05/19 [History] hydrOXYzine pamoate [Hydroxyzine Pamoate] 25 mg PO DAILY 12/05/19 [History] Erenumab-Aooe [Aimovig Autoinjector] 70 mg SQ UD 05/13/21 [History] Glipizide [Glipizide ER] 5 mg PO DAILY 05/13/21 [History] Metformin HCl [Metformin ER Gastric] 1,000 mg PO BID 05/13/21 [History] Potassium Chloride [Klor-Con M20] 20 meq PO BID 05/13/21 [History] Pregabalin 150 mg PO DAILY 05/13/21 [History] Sildenafil Citrate [Sildenafil] 20 mg PO TID 05/13/21 [History] Hx Tetanus, Diphtheria Vaccination/Date Given: Yes Hx Influenza Vaccination/Date Given: Yes Hx Pneumococcal Vaccination/Date Given: Yes Immunizations Up to Date: Yes Travel Risk - International Travel Have you traveled outside of the country in past 3 weeks: No - Coronavirus Screening Are you exhibiting any of the following symptoms?: Yes Symptoms: Fever, Cough: New Onset, Shortness of Breath, Vomiting/Diarrhea, Loss of Taste or Smell, Headaches/Body Aches/Fatigue Close contact with a COVID-19 positive Pt in past 14-21 Days: Yes - Vaccine Status Have you recieved a Covid-19 vaccination: Yes Dry End Tester: Moderna - Vaccination Dates Date of 2cond Vaccination (if applicable): 10/2020 Comment: Booster May 2021 - Review of Systems Constitutional: Fever, Chills, Fatigue, Weakness Eyes: No Symptoms Ears, Nose, & Throat: Nose Congestion, Sinus Drainage Respiratory: Dyspnea Cardiac: No Symptoms Abdominal/Gastrointestinal: Abdominal Pain Genitourinary Symptoms: No Symptoms Musculoskeletal: Myalgias Skin: No Symptoms Neurological: No Symptoms Endocrine: No Symptoms Hematologic/Lymphatic: No Symptoms Immunological/Allergic: No Symptoms - Past Medical History Pertinent Past Medical History: Yes (sarcoidosis, migraine, hypoxia) Neurological History: Migraines, Peripheral Neuropathy ENT History: Other Cardiac History: High Cholesterol, Hypertension, Myocardial Infarction (DE) Respiratory History: Other Endocrine Medical History: Diabetes Type II, Liver Disease Musculoskeletal History: Arthritis, Fibromyalgia, Osteoarthritis GI Medical History: Cirrhosis, Diverticulitis, Hernia, Irritable Bowel History: No Pertinent History Psycho-Social History: Anxiety, Depression Female Reproductive Disorders: Cervical Cancer Other Medical History: HX OF CERVICAL CANCER (TREATED VIA SURGERY). HX OF LUNG DISEASE (SEES DR. SHELBY) - REPORTS HAS INCREASED PRESSUE IN THE LUNGS. STATES DE WAS "DRUG INDUCED" AFTER SURGERY. GERD, HX OF STOMACH ULCER. ANXIETY, DEPRESSION. SEES DR. KEIKO SON FOR MEDICATION FOR CHRONIC PAIN. - Past Surgical History Past Surgical History: Yes Neuro Surgical History: No Pertinent History Cardiac: No Pertinent History, Cardiac Catheterization Respiratory: No Pertinent History Gastrointestinal: Cholecystectomy, Hernia Repair Genitourinary: No Pertinent History Musculoskeletal: No Pertinent History Female Surgical History: Hysterectomy - Social History Smoking Status: Never smoker Exposure to second hand smoke: Yes Drug Use: none Patient Lives Alone: Yes - Female History Hx Now: No - Nursing Vital Signs Nursing Vital Signs: Initial Vital Signs Temperature 96.6 F 05/31/21 15:33 Pulse Rate 70 05/31/21 15:33 Respiratory Rate 18 05/31/21 15:33 Blood Pressure 250/89 05/31/21 15:33 O2 Sat by Pulse Oximetry 97 05/31/21 15:33 Pain Scale Pain Intensity 4 - Physical Exam General Appearance: no apparent distress, alert Eye Exam: PERRL/EOMI, eyes nml inspection Ears, Nose, Throat Exam: normal ENT inspection, TMs normal, pharynx normal, moist mucous membranes Neck Exam: normal inspection, non-tender, supple, full range of motion, No meningismus Respiratory Exam: normal breath sounds, lungs clear Cardiovascular Exam: regular rate/rhythm, normal heart sounds Gastrointestinal/Abdomen Exam: soft, normal bowel sounds, No tenderness Back Exam: normal inspection, normal range of motion Extremity Exam: normal inspection, normal range of motion, pelvis stable Neurologic Exam: alert, oriented x 3, cooperative, director of music II-XII nml as tested, normal mood/affect, nml cerebellar function, nml station & gait, sensation nml, No motor deficits, No sensory deficit Skin Exam: normal color SpO2 Interpretation: normal SpO2: 97 O2 Delivery: Room Air - Course EKG Interpreted by Me: RATE ([id number]), Sinus Rhythm, NORMAL AXIS, NORMAL INTERVALS, Non-specific ST Changes Ordered Tests: Active Orders 24 hr Category Date Time Status EKG-ER Only STAT Care 05/31/21 16:03 Active IV Insertion STAT Care 05/31/21 16:03 Active CHEST 1 VIEW (PORTABLE) Stat Exams 05/31/21 16:03 Completed CBC W DIFF Stat Lab 05/31/21 16:03 Completed CMP Stat Lab 05/31/21 16:03 Completed INFLUENZA A+B MYNOR Stat Lab 05/31/21 16:20 Completed LIPASE Stat Lab 05/31/21 16:03 Completed Lactic Acid Stat Lab 05/31/21 16:15 Completed MAGNESIUM Stat Lab 05/31/21 16:03 Completed POCT GLUCOSE Stat Lab 05/31/21 15:53 Completed TROPONIN Q3H Lab 05/31/21 16:15 Completed TROPONIN Q3H Lab 05/31/21 19:15 Ordered TROPONIN Q3H Lab 05/31/21 22:15 Ordered TROPONIN Q3H Lab 06/01/21 01:15 Ordered TROPONIN Q3H Lab 06/01/21 04:15 Ordered UA W/RFX UR CULTURE Stat Lab 05/31/21 15:26 Completed Medication Summary Discontinued Medications Generic Name Dose Route Start Last Admin Trade Name Vlaeria PRN Reason Stop Dose Admin Acetaminophen 650 mg 05/31/21 16:03 05/31/21 16:16 Acetaminophen 325 Mg Tablet PO 05/31/21 16:04 650 mg STAT ONE Administration Acetaminophen Confirm 05/31/21 16:13 Acetaminophen 325 Mg Tablet Administered 05/31/21 16:14 Dose 650 mg .ROUTE .STK-MED ONE Clonidine 0.1 mg 05/31/21 16:05 05/31/21 16:15 Clonidine Hcl 0.1 Mg Tablet PO 05/31/21 16:06 0.1 mg STAT ONE Administration Clonidine Confirm 05/31/21 16:13 Clonidine Hcl 0.1 Mg Tablet Administered 05/31/21 16:14 Dose 0.1 mg .ROUTE .STK-MED ONE Clonidine 0.1 mg 05/31/21 17:42 05/31/21 17:52 Clonidine Hcl 0.1 Mg Tablet PO 05/31/21 17:43 0.1 mg STAT ONE Administration Clonidine Confirm 05/31/21 17:51 Clonidine Hcl 0.1 Mg Tablet Administered 05/31/21 17:52 Dose 0.1 mg .ROUTE .STK-MED ONE Morphine Sulfate 4 mg 05/31/21 16:03 05/31/21 16:15 Morphine Sulfate 4 Mg/Ml Injection IV 05/31/21 16:04 4 mg STAT ONE Administration Morphine Sulfate Confirm 05/31/21 16:13 Morphine Sulfate 4 Mg/Ml Injection Administered 05/31/21 16:14 Dose 4 mg .ROUTE .STK-MED ONE Ondansetron HCl 4 mg 05/31/21 16:03 05/31/21 16:14 Ondansetron Hcl 4 Mg/2 Ml Vial IV 05/31/21 16:04 4 mg STAT ONE Administration Ondansetron HCl Confirm 05/31/21 16:12 Ondansetron Hcl 4 Mg/2 Ml Vial Administered 05/31/21 16:13 Dose 4 mg .ROUTE .STK-MED ONE Lab/Rad Data: Laboratory Result Diagrams 05/31/21 16:03 05/31/21 16:03 Laboratory Results 05/31/21 05/31/21 05/31/21 Range/Units 16:20 16:15 16:15 WBC (4.0-10.5) K/mm3 RBC (4.1-5.4) M/mm3 Hgb (12.0-16.0) gm/dl Hct (35-47) % MCV (78-100) fl MCH (26-32) pg MCHC (32-36) g/dl RDW (11.5-14.0) % Plt Count (150-450) K/mm3 MPV (7.5-11.0) fl Gran % (36.0-66.0) % Eos # (Auto) (0-0.5) Absolute Lymphs (auto) (1.0-4.6) Absolute Monos (auto) (0.0-1.3) Lymphocytes % (24.0-44.0) % Monocytes % (0.0-12.0) % Eosinophils % (0.00-5.0) % Basophils % (0.0-0.4) % Absolute Granulocytes (1.4-6.9) Basophils # (0-0.4) Sodium (137-145) mmol/L Potassium (3.5-5.1) mmol/L Chloride (98-107) mmol/L Carbon Dioxide (22-30) mmol/L Anion Gap (5-15) MEQ/L BUN (7-17) mg/dL Creatinine (0.52-1.04) mg/dL Estimated GFR ML/MIN Glucose (74-106) mg/dL POC Glucometer (74 to 106) mg/dL Lactic Acid 1.8 (0.4-2.0) Calcium (8.4-10.2) mg/dL Magnesium (1.6-2.3) mg/dL Total Bilirubin (0.2-1.3) mg/dL AST (14-36) U/L ALT (0-35) U/L Alkaline Phosphatase (38-126) U/L Troponin I < 0.012 (0.000-0.034) ng/mL Serum Total Protein (6.3-8.2) g/dL Albumin (3.5-5.0) g/dL Lipase (23-300) U/L Urine Color (YELLOW) Urine Appearance (CLEAR) Urine pH (5-6) Ur Specific [place] (1.005-1.025) Urine Protein (Negative) Urine Ketones (NEGATIVE) Urine Blood (0-5) Jason/ul Urine Nitrite (NEGATIVE) Urine Bilirubin (NEGATIVE) Urine Urobilinogen (0-1) mg/dL Ur Leukocyte Esterase (NEGATIVE) Urine WBC (Auto) (0-5) /HPF Urine RBC (Auto) (0-2) /HPF U Epithel Cells (Auto) (FEW) /HPF Urine Bacteria (Auto) (NEGATIVE) /HPF Urine Culture Reflexed (NO) Urine Glucose (NEGATIVE) mg/dL Influenza Type A Ag NEGATIVE (NEGATIVE) Influenza Type B Ag NEGATIVE (NEGATIVE) 05/31/21 05/31/21 05/31/21 Range/Units 16:03 16:03 15:53 WBC 5.2 (4.0-10.5) K/mm3 RBC 4.20 (4.1-5.4) M/mm3 Hgb 11.3 L (12.0-16.0) gm/dl Hct 36.3 (35-47) % MCV 86.4 (78-100) fl MCH 26.9 (26-32) pg MCHC 31.1 L (32-36) g/dl RDW 15.5 H (11.5-14.0) % Plt Count 143 L (150-450) K/mm3 MPV 10.1 (7.5-11.0) fl Gran % 57.5 (36.0-66.0) % Eos # (Auto) 0.17 (0-0.5) Absolute Lymphs (auto) 1.48 (1.0-4.6) Absolute Monos (auto) 0.53 (0.0-1.3) Lymphocytes % 28.4 (24.0-44.0) % Monocytes % 10.2 (0.0-12.0) % Eosinophils % 3.3 (0.00-5.0) % Basophils % 0.6 (0.0-0.4) % Absolute Granulocytes 3.01 (1.4-6.9) Basophils # 0.03 (0-0.4) Sodium 141 (137-145) mmol/L Potassium 4.4 (3.5-5.1) mmol/L Chloride 108 H (98-107) mmol/L Carbon Dioxide 23 (22-30) mmol/L Anion Gap 14.3 (5-15) MEQ/L BUN 10 (7-17) mg/dL Creatinine 0.87 (0.52-1.04) mg/dL Estimated GFR > 60.0 ML/MIN Glucose 167 H (74-106) mg/dL POC Glucometer 164 H (74 to 106) mg/dL Lactic Acid (0.4-2.0) Calcium 9.5 (8.4-10.2) mg/dL Magnesium 1.7 (1.6-2.3) mg/dL Total Bilirubin 0.70 (0.2-1.3) mg/dL AST 52 H (14-36) U/L ALT 18 (0-35) U/L Alkaline Phosphatase 106 (38-126) U/L Troponin I (0.000-0.034) ng/mL Serum Total Protein 8.1 (6.3-8.2) g/dL Albumin 4.1 (3.5-5.0) g/dL Lipase 181 (23-300) U/L Urine Color (YELLOW) Urine Appearance (CLEAR) Urine pH (5-6) Ur Specific [place] (1.005-1.025) Urine Protein (Negative) Urine Ketones (NEGATIVE) Urine Blood (0-5) Jason/ul Urine Nitrite (NEGATIVE) Urine Bilirubin (NEGATIVE) Urine Urobilinogen (0-1) mg/dL Ur Leukocyte Esterase (NEGATIVE) Urine WBC (Auto) (0-5) /HPF Urine RBC (Auto) (0-2) /HPF U Epithel Cells (Auto) (FEW) /HPF Urine Bacteria (Auto) (NEGATIVE) /HPF Urine Culture Reflexed (NO) Urine Glucose (NEGATIVE) mg/dL Influenza Type A Ag (NEGATIVE) Influenza Type B Ag (NEGATIVE) 05/31/21 Range/Units 15:26 WBC (4.0-10.5) K/mm3 RBC (4.1-5.4) M/mm3 Hgb (12.0-16.0) gm/dl Hct (35-47) % MCV (78-100) fl MCH (26-32) pg MCHC (32-36) g/dl RDW (11.5-14.0) % Plt Count (150-450) K/mm3 MPV (7.5-11.0) fl Gran % (36.0-66.0) % Eos # (Auto) (0-0.5) Absolute Lymphs (auto) (1.0-4.6) Absolute Monos (auto) (0.0-1.3) Lymphocytes % (24.0-44.0) % Monocytes % (0.0-12.0) % Eosinophils % (0.00-5.0) % Basophils % (0.0-0.4) % Absolute Granulocytes (1.4-6.9) Basophils # (0-0.4) Sodium (137-145) mmol/L Potassium (3.5-5.1) mmol/L Chloride (98-107) mmol/L Carbon Dioxide (22-30) mmol/L Anion Gap (5-15) MEQ/L BUN (7-17) mg/dL Creatinine (0.52-1.04) mg/dL Estimated GFR ML/MIN Glucose (74-106) mg/dL POC Glucometer (74 to 106) mg/dL Lactic Acid (0.4-2.0) Calcium (8.4-10.2) mg/dL Magnesium (1.6-2.3) mg/dL Total Bilirubin (0.2-1.3) mg/dL AST (14-36) U/L ALT (0-35) U/L Alkaline Phosphatase (38-126) U/L Troponin I (0.000-0.034) ng/mL Serum Total Protein (6.3-8.2) g/dL Albumin (3.5-5.0) g/dL Lipase (23-300) U/L Urine Color STRAW (YELLOW) Urine Appearance CLEAR (CLEAR) Urine pH 6.0 (5-6) Ur Specific [place] 1.003 (1.005-1.025) Urine Protein NEGATIVE (Negative) Urine Ketones NEGATIVE (NEGATIVE) Urine Blood NEGATIVE (0-5) Jason/ul Urine Nitrite NEGATIVE (NEGATIVE) Urine Bilirubin NEGATIVE (NEGATIVE) Urine Urobilinogen NEGATIVE (0-1) mg/dL Ur Leukocyte Esterase NEGATIVE (NEGATIVE) Urine WBC (Auto) 0-2 (0-5) /HPF Urine RBC (Auto) 0-2 (0-2) /HPF U Epithel Cells (Auto) RARE (FEW) /HPF Urine Bacteria (Auto) RARE (NEGATIVE) /HPF Urine Culture Reflexed NO (NO) Urine Glucose NEGATIVE (NEGATIVE) mg/dL Influenza Type A Ag (NEGATIVE) Influenza Type B Ag (NEGATIVE) - Progress Progress: improved Air Movement: good Progress Note: 05/31/21 18:35 66 years old is evaluated for generalized weakness fatigue, cough with lying down and elevated pressure with nonfocal neuro exam. EKG did not show any acute ischemic changes and negative troponins. Grossly unremarkable work-up including chest x-ray. She is given clonidine 0.2 mg and blood pressure improved to 144/55. Patient feeling much better on reevaluation after symptomatic treatment. Outpatient COVID test is obtained. Recommended con tact/droplet precautions. Counseled about monitoring her pressure. Do not think patient needs any further work-up pending stable for discharge with outpatient follow-up with discussed signs symptoms of worsening needing return to ER which she seems understanding. Blood Culture(s) Obtained: No Antibiotics given: No Counseled pt/family regarding: lab results, diagnosis, need for follow-up, rad results - Departure Departure Disposition: Home Clinical Impression: Generalized weakness, Uncontrolled hypertension, Viral syndrome Condition: Stable Critical Care Time: No Referrals: [facility] [Primary Care Provider] - Follow up/PCP as directed (In 1-2 days for reevaluation) Instructions: Cough, Adult (DC), Viral Syndrome (DC), High Blood Pressure Emergencies Additional Instructions: Monitor your blood pressure regularly, keep a log and follow-up with primary care for reevaluation. Take your nighttime medications for blood pressure after you go home. Take Tylenol as needed. Follow contact/droplet precautions until your COVID-19 results are back. Return to ER for worsening cough or if having difficulty breathing, weakness etc.
[2021-05-31] MEDS ORDERED: TYLENOL 325 MG ONE (16:13)
[2021-05-31] MEDS ORDERED: MORPHINE SULFATE 4 MG INJ ONE (16:13)
[2021-05-31] MEDS ORDERED: Catapres 0.1 MG ONE ×2 (16:13→17:51)
[2021-05-31] MEDS: Catapres 0.1 MG PO ONE (16:15)
[2021-05-31 16:20] LABS: Absolute Neutrophil Ct (ANC) 3.01 (1.4-6.9); Basophil (Absolute #) 0.03 (0-0.4); Eosinophil % 3.3 % (0.00-5.0); Eosinophil (Absolute #) 0.17 (0-0.5); Hematocrit 36.3 % (35-47); Hemoglobin 11.3 gm/dl (12.0-16.0); Lymphocyte (Absolute #) 1.48 (1.0-4.6); Lymphocytes % 28.4 % (24.0-44.0); Mean Cell Volume 86.4 fl (78-100); Mean Corpuscular Hemoglobin 26.9 pg (26-32); Mean Corpuscular Hgb Concent. 31.1 g/dl (32-36); Mean Platelet Volume 10.1 fl (7.5-11.0); Monocyte (Absolute #) 0.53 (0.0-1.3); Monocytes % 10.2 % (0.0-12.0); Neutrophil % 57.5 % (36.0-66.0); Platelet Count 143 K/mm3 (150-450); Red Cell Distribution Width 15.5 % (11.5-14.0); White Blood Count 5.2 K/mm3 (4.0-10.5)
[2021-05-31 16:25] LABS: ALBUMIN 4.1 g/dL (3.5-5.0); ALKALINE PHOSPHATASE 106 U/L (38-126); ANION GAP 14.3 MEQ/L (5-15); BLOOD UREA NITROGEN 10 mg/dL (7-17); CHLORIDE 108 mmol/L (98-107); Calcium 9.5 mg/dL (8.4-10.2); Carbon Dioxide 23 mmol/L (22-30); Creatinine 1 0.87 mg/dL (0.52-1.04); EST GLOMERULAR FILTRATION RATE > 60.0 ML/MIN; Glucose 167 mg/dL (74-106); LIPASE 181 U/L (23-300); MAGNESIUM 1.7 mg/dL (1.6-2.3); Potassium 4.4 mmol/L (3.5-5.1); SGOT/AST 52 U/L (14-36); SGPT/ALT 18 U/L (0-35); SODIUM 141 mmol/L (137-145); Total Protein 8.1 g/dL (6.3-8.2)
--- NOTE | 2021-05-31 16:35 | XRAY ---
Indication: General weakness. Negative Covid 19. Comparison: January 01, 2021. Portable chest remains clear. Heart within normal limits for AP portable technique. Bony thorax intact again with mild osteopenia and degenerative changes. New epidural stimulator leads terminates T7. Impression: Continued nonacute chest with chronic features.
[2021-05-31 16:36] LABS: Appearance CLEAR (CLEAR); Bacteria RARE /HPF (NEGATIVE); Bilirubin NEGATIVE (NEGATIVE); Blood NEGATIVE Ery/ul (0-5); Epithelial Cells RARE /HPF (FEW); Glucose NEGATIVE (NEGATIVE); Ketones NEGATIVE (NEGATIVE); Leukocyte Esterase NEGATIVE (NEGATIVE); Nitrite NEGATIVE (NEGATIVE); Protein,Urine Dip NEGATIVE (Negative); RBC 0-2 /HPF (0-2); Specific Gravity 1.003 (1.005-1.025); Urobilinogen NEGATIVE mg/dL (0-1); WBC 0-2 /HPF (0-5)
[2021-05-31 16:45] LABS: INFLUENZA A NEGATIVE (NEGATIVE); INFLUENZA B NEGATIVE (NEGATIVE)
[2021-05-31] MEDS ORDERED: Catapres 0.1 MG PO ONE (17:42)
[2021-05-31 18:18] VITALS: BP 166/50; PULSE 64
[2021-05-31 18:19] VITALS: O2SAT 97
== END 2021-05-31 18:56 | disposition home or self-care (01) ==
LOC: ED 15:19
DX: R53.1 Weakness (principal); I10 Essential (primary) hypertension; B34.9 Viral infection, unspecified; M79.10 Myalgia, unspecified site; R50.9 Fever, unspecified; R05.9 Cough, unspecified; R07.9 Chest pain, unspecified; R09.81 Nasal congestion; K57.92 Diverticulitis of intestine, part unspecified, without perforation or abscess without bleeding; E78.5 Hyperlipidemia, unspecified; E11.42 Type 2 diabetes mellitus with diabetic polyneuropathy; Z79.84 Long term (current) use of oral hypoglycemic drugs
CPT/HCPCS: 36000; 36415; 71045; 80053; 81001; 82947; 83605; 83690; 83735; 84484; 85025; 87400; 93005; 96374; 96375; 99284; U0003; J2270; J2405; A9270-GY

== ENCOUNTER 2021-06-23 17:14 | Emergency (ER) | payer MEDICARE ==
--- NOTE | 2021-06-23 17:31 | ERPHSYRPT ---
- History of Present Illness Time Seen by Provider: 06/23/21 17:25 Source: patient Exam Limitations: no limitations Physician History: This is an obese 66-year-old white female patient of Dr. Valenzuela, who has a history of migraine headaches, hypertension, peripheral neuropathy, elevated cholesterol, coronary artery disease, type 2 diabetes, arthritis, fibromyalgia, cirrhosis, irritable bowel syndrome, anxiety and depression and presents with intermittent elevated blood pressure and associated headaches. Patient denies chest pain. She denies shortness of breath. She has no abdominal pain. Patient states that she has taken her blood pressure medicine today as prescribed and despite that her blood pressure on arrival to the emergency department was 190/75. Patient does appear to be anxious. She denies any visual changes. She denies any traumatic head injury. She has had no syncopal episodes. Patient stated that she did take her migraine headache medicine and it only helped a little. Timing/Duration: day(s) (Last couple of days) Quality: aching, throbbing Head Pain Location: global Severity of Pain-Max: moderate Severity of Pain-Current: moderate Recent Head Trauma: no recent headache/trauma, occasional headaches Modifying Factors: Improves With: movement, position. Worsens With: exposure to light Associated Symptoms: denies symptoms Previous symptoms: same symptoms as today Allergies/Adverse Reactions: gabapentin Allergy (Severe, Verified 06/23/21 17:33) fluoxetine HCl [From Prozac] Allergy (Intermediate, Verified 06/23/21 17:33) Hives Latex, Natural Rubber Allergy (Mild, Verified 06/23/21 17:33) Hives Home Medications: ARIPiprazole [Aripiprazole] 5 mg DAILY 11/16/18 [History] Duloxetine HCl 60 mg PO DAILY 11/16/18 [History] Oxycodone / APAP 10/325 mg [Oxycodone-Acetaminophen 10-325] 1 tab PO TID 11/16/18 [History] Tizanidine HCl 4 mg PO DAILY 11/16/18 [History] Albuterol 8 gm Mdi Hfa [Ventolin Hfa MDI] 2 inh PO Q4H 12/05/19 [History] Aspirin EC 81 mg [Ecotrin 81 mg] 81 mg PO DAILY 12/05/19 [History] Atorvastatin Calcium [Lipitor] 40 mg PO DAILY 12/05/19 [History] Buspirone HCl [Buspar] 10 mg PO BID 12/05/19 [History] Dicyclomine HCl 20 mg [Bentyl 20 mg] 20 mg PO TID 12/05/19 [History] Hydroxychloroquine Sulfate 200 mg PO DAILY 12/05/19 [History] Lisinopril/Hydrochlorothiazide [Lisinopril-Hctz 20-12.5 mg Tab] 1 each PO DAILY 12/05/19 [History] Metformin HCl [Glucophage] 1,000 mg PO BID 12/05/19 [History] Montelukast Sodium 10 mg [Singulair 10 MG] 10 mg PO DAILY 12/05/19 [History] Omeprazole 20 mg PO DAILY 12/05/19 [History] Propranolol HCl [Propranolol HCl ER] 80 mg PO DAILY 12/05/19 [History] Ropinirole HCl [Requip] 0.5 - 1 tab PO DAILY 12/05/19 [History] Topiramate [Topamax] 100 mg PO BID 12/05/19 [History] Trazodone HCl 50 mg [Desyrel 50 mg] 25 mg PO DAILY 12/05/19 [History] Verapamil HCl [Verapamil ER] 120 mg PO DAILY 12/05/19 [History] hydrOXYzine pamoate [Hydroxyzine Pamoate] 25 mg PO DAILY 12/05/19 [History] Erenumab-Aooe [Aimovig Autoinjector] 70 mg SQ UD 05/13/21 [History] Glipizide [Glipizide ER] 5 mg PO DAILY 05/13/21 [History] Metformin HCl [Metformin ER Gastric] 1,000 mg PO BID 05/13/21 [History] Potassium Chloride [Klor-Con M20] 20 meq PO BID 05/13/21 [History] Pregabalin 150 mg PO DAILY 05/13/21 [History] Sildenafil Citrate [Sildenafil] 20 mg PO TID 05/13/21 [History] Hx Tetanus, Diphtheria Vaccination/Date Given: Yes Hx Influenza Vaccination/Date Given: Yes Hx Pneumococcal Vaccination/Date Given: Yes Travel Risk - International Travel Have you traveled outside of the country in past 3 weeks: No - Coronavirus Screening Are you exhibiting any of the following symptoms?: No Close contact with a COVID-19 positive Pt in past 14-21 Days: No - Vaccine Status Have you recieved a Covid-19 vaccination: Yes Travel Ot: Moderna - Vaccination Dates Date of 2cond Vaccination (if applicable): 10/2020 Comment: Booster May 2021 - Review of Systems Constitutional: No Symptoms Eyes: No Symptoms Ears, Nose, & Throat: No Symptoms Respiratory: No Symptoms Cardiac: No Symptoms Abdominal/Gastrointestinal: No Symptoms Genitourinary Symptoms: No Symptoms Musculoskeletal: No Symptoms Skin: No Symptoms Neurological: Headache Psychological: No Symptoms Endocrine: No Symptoms Hematologic/Lymphatic: No Symptoms Immunological/Allergic: No Symptoms All Other Systems: Reviewed and Negative - Past Medical History Pertinent Past Medical History: Yes (sarcoidosis, migraine, hypoxia) Neurological History: Migraines, Peripheral Neuropathy ENT History: Other Cardiac History: High Cholesterol, Hypertension, Myocardial Infarction (OR) Respiratory History: Other Endocrine Medical History: Diabetes Type II, Liver Disease Musculoskeletal History: Arthritis, Fibromyalgia, Osteoarthritis GI Medical History: Cirrhosis, Diverticulitis, Hernia, Irritable Bowel History: No Pertinent History Psycho-Social History: Anxiety, Depression Female Reproductive Disorders: Cervical Cancer Other Medical History: HX OF CERVICAL CANCER (TREATED VIA SURGERY). HX OF LUNG DISEASE (SEES DR. SHELBY) - REPORTS HAS INCREASED PRESSUE IN THE LUNGS. STATES OR WAS "DRUG INDUCED" AFTER SURGERY. GERD, HX OF STOMACH ULCER. ANXIETY, DEPRESSION. SEES DR. KEIKO SON FOR MEDICATION FOR CHRONIC PAIN. - Past Surgical History Past Surgical History: Yes Neuro Surgical History: No Pertinent History Cardiac: No Pertinent History, Cardiac Catheterization Respiratory: No Pertinent History Gastrointestinal: Cholecystectomy, Hernia Repair Genitourinary: No Pertinent History Musculoskeletal: No Pertinent History Female Surgical History: Hysterectomy - Social History Smoking Status: Never smoker Exposure to second hand smoke: Yes Drug Use: none Patient Lives Alone: Yes - Nursing Vital Signs Nursing Vital Signs: Initial Vital Signs Temperature 97.3 F 06/23/21 17:21 Pulse Rate 61 06/23/21 17:21 Respiratory Rate 19 06/23/21 17:21 Blood Pressure 190/75 06/23/21 17:21 O2 Sat by Pulse Oximetry 97 06/23/21 17:21 Pain Scale Pain Intensity 8 - Physical Exam General Appearance: no apparent distress, alert, anxiety Eye Exam: PERRL/EOMI, eyes nml inspection Ears, Nose, Throat Exam: normal ENT inspection, moist mucous membranes Neck Exam: normal inspection, non-tender, supple, full range of motion Respiratory Exam: normal breath sounds, lungs clear, airway intact, No chest tenderness, No respiratory distress Cardiovascular Exam: regular rate/rhythm, normal heart sounds, normal peripheral pulses Gastrointestinal/Abdominal Exam: soft, normal bowel sounds, No tenderness Back Exam: normal inspection, normal range of motion, No CVA tenderness, No vertebral tenderness Extremity Exam: normal inspection, normal range of motion, pelvis stable Mental Status Exam: alert, oriented x 3, 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 Exam: normal hearing, normal speech, PERRL, tongue midline Coordination/Gait Exam: normal finger to nose, normal gait, normal cerebellar function Motor/Sensory Exam: no motor deficit, no sensory deficit, no pronator drift Skin Exam: normal color, warm, dry Lymphatic Exam: No adenopathy SpO2 Interpretation: normal O2 Delivery: Room Air - Course Nursing assessment & vital signs reviewed: Yes Ordered Tests: Active Orders 24 hr Category Date 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 06/23/21 17:32 Active IV Insertion STAT Care 06/23/21 17:31 Active Pulse Oximetry (ED) STAT Care 06/23/21 17:31 Active HEAD WITHOUT CONTRAST [CT] Stat Exams 06/23/21 18:07 Taken CBC W DIFF Stat Lab 06/23/21 17:58 Completed CMP Stat Lab 06/23/21 17:58 Completed UA W/RFX UR CULTURE Stat Lab 06/23/21 18:22 Completed Medication Summary Discontinued Medications Generic Name Dose Route Start Last Admin Trade Name Valeria PRN Reason Stop Dose Admin Morphine Sulfate 2 mg 06/23/21 19:19 06/23/21 19:24 Morphine Sulfate 2 Mg/Ml Inj IV 06/23/21 19:20 2 mg STAT ONE Administration Morphine Sulfate Confirm 06/23/21 19:21 Morphine Sulfate 2 Mg/Ml Inj Administered 06/23/21 19:22 Dose 2 mg .ROUTE .STK-MED ONE Ondansetron HCl 4 mg 06/23/21 19:19 06/23/21 19:24 Ondansetron Hcl 4 Mg/2 Ml Vial IV 06/23/21 19:20 4 mg STAT ONE Administration Ondansetron HCl Confirm 06/23/21 19:21 Ondansetron Hcl 4 Mg/2 Ml Vial Administered 06/23/21 19:22 Dose 4 mg .ROUTE .STK-MED ONE Lab/Rad Data: Laboratory Result Diagrams 06/23/21 17:58 06/23/21 17:58 Laboratory Results 06/23/21 06/23/21 06/23/21 Range/Units 18:22 17:58 17:58 WBC 5.6 (4.0-10.5) K/mm3 RBC 4.40 (4.1-5.4) M/mm3 Hgb 12.0 (12.0-16.0) gm/dl Hct 38.9 (35-47) % MCV 88.4 (78-100) fl MCH 27.3 (26-32) pg MCHC 30.8 L (32-36) g/dl RDW 15.1 H (11.5-14.0) % Plt Count 151 (150-450) K/mm3 MPV 9.5 (7.5-11.0) fl Gran % 45.4 (36.0-66.0) % Eos # (Auto) 0.19 (0-0.5) Absolute Lymphs (auto) 2.23 (1.0-4.6) Absolute Monos (auto) 0.59 (0.0-1.3) Lymphocytes % 40.1 (24.0-44.0) % Monocytes % 10.6 (0.0-12.0) % Eosinophils % 3.4 (0.00-5.0) % Basophils % 0.5 (0.0-0.4) % Absolute Granulocytes 2.52 (1.4-6.9) Basophils # 0.03 (0-0.4) Sodium 140 (137-145) mmol/L Potassium 3.9 (3.5-5.1) mmol/L Chloride 109 H (98-107) mmol/L Carbon Dioxide 21 L (22-30) mmol/L Anion Gap 14.3 (5-15) MEQ/L BUN 9 (7-17) mg/dL Creatinine 0.87 (0.52-1.04) mg/dL Estimated GFR > 60.0 ML/MIN Glucose 161 H (74-106) mg/dL Calcium 9.2 (8.4-10.2) mg/dL Total Bilirubin 0.40 (0.2-1.3) mg/dL AST 41 H (14-36) U/L ALT 23 (0-35) U/L Alkaline Phosphatase 102 (38-126) U/L Serum Total Protein 7.8 (6.3-8.2) g/dL Albumin 4.0 (3.5-5.0) g/dL Urine Color YELLOW (YELLOW) Urine Appearance CLEAR (CLEAR) Urine pH 5.0 (5-6) Ur Specific [place] 1.018 (1.005-1.025) Urine Protein NEGATIVE (Negative) Urine Ketones NEGATIVE (NEGATIVE) Urine Blood NEGATIVE (0-5) Jason/ul Urine Nitrite NEGATIVE (NEGATIVE) Urine Bilirubin NEGATIVE (NEGATIVE) Urine Urobilinogen NEGATIVE (0-1) mg/dL Ur Leukocyte Esterase NEGATIVE (NEGATIVE) Urine WBC (Auto) NONE (0-5) /HPF Urine RBC (Auto) NONE (0-2) /HPF U Hyaline Cast (Auto) 0-2 (0-2) /LPF U Epithel Cells (Auto) RARE (FEW) /HPF Urine Bacteria (Auto) NONE (NEGATIVE) /HPF Urine Mucus (Auto) SLIGHT (NEGATIVE) /HPF Urine Culture Reflexed NO (NO) Urine Glucose NEGATIVE (NEGATIVE) mg/dL - Progress Progress: improved, re-examined Air Movement: good Progress Note: 06/23/21 19:40 CAT scan of the head without contrast shows nonacute senile brain which is unchanged when compared to that CT scan that was done on 01/01/2021. Patient systolic blood pressure is now in the 130s. She will be discharged to home. Blood Culture(s) Obtained: No Antibiotics given: No Counseled pt/family regarding: lab results, diagnosis, need for follow-up, rad results - Departure Departure Disposition: Home Clinical Impression: Headache, Hypertension Condition: Stable Critical Care Time: No Referrals: GUILLERMO VALENZUELA [Primary Care Provider] - Follow up/PCP as directed Additional Instructions: Take all your medications as prescribed. Follow-up with your prescribing provider for further evaluation and management
[2021-06-23 18:14] LABS: Absolute Neutrophil Ct (ANC) 2.52 (1.4-6.9); Basophil (Absolute #) 0.03 (0-0.4); Eosinophil % 3.4 % (0.00-5.0); Eosinophil (Absolute #) 0.19 (0-0.5); Hematocrit 38.9 % (35-47); Lymphocyte (Absolute #) 2.23 (1.0-4.6); Lymphocytes % 40.1 % (24.0-44.0); Mean Cell Volume 88.4 fl (78-100); Mean Corpuscular Hemoglobin 27.3 pg (26-32); Mean Corpuscular Hgb Concent. 30.8 g/dl (32-36); Mean Platelet Volume 9.5 fl (7.5-11.0); Monocyte (Absolute #) 0.59 (0.0-1.3); Monocytes % 10.6 % (0.0-12.0); Neutrophil % 45.4 % (36.0-66.0); Platelet Count 151 K/mm3 (150-450); Red Cell Distribution Width 15.1 % (11.5-14.0); White Blood Count 5.6 K/mm3 (4.0-10.5)
[2021-06-23 18:32] LABS: ALKALINE PHOSPHATASE 102 U/L (38-126); ANION GAP 14.3 MEQ/L (5-15); BLOOD UREA NITROGEN 9 mg/dL (7-17); CHLORIDE 109 mmol/L (98-107); Calcium 9.2 mg/dL (8.4-10.2); Carbon Dioxide 21 mmol/L (22-30); Creatinine 1 0.87 mg/dL (0.52-1.04); EST GLOMERULAR FILTRATION RATE > 60.0 ML/MIN; Glucose 161 mg/dL (74-106); Potassium 3.9 mmol/L (3.5-5.1); SGOT/AST 41 U/L (14-36); SGPT/ALT 23 U/L (0-35); SODIUM 140 mmol/L (137-145); Total Protein 7.8 g/dL (6.3-8.2)
[2021-06-23 19:14] LABS: Appearance CLEAR (CLEAR); Bilirubin NEGATIVE (NEGATIVE); Blood NEGATIVE Ery/ul (0-5); Epithelial Cells RARE /HPF (FEW); Glucose NEGATIVE (NEGATIVE); Hyaline Casts 0-2 /LPF (0-2); Ketones NEGATIVE (NEGATIVE); Leukocyte Esterase NEGATIVE (NEGATIVE); Mucus SLIGHT /HPF (NEGATIVE); Nitrite NEGATIVE (NEGATIVE); Protein,Urine Dip NEGATIVE (Negative); Specific Gravity 1.018 (1.005-1.025); Urobilinogen NEGATIVE mg/dL (0-1)
[2021-06-23] MEDS ORDERED: MORPHINE SULFATE 2 MG INJ IV ONE (19:19)
[2021-06-23] MEDS ORDERED: Zofran 4 MG/2 ML VIAL IV ONE (19:19)
[2021-06-23] MEDS ORDERED: Zofran 4 MG/2 ML VIAL ONE (19:21)
[2021-06-23] MEDS ORDERED: MORPHINE SULFATE 2 MG INJ ONE (19:21)
[2021-06-23 19:49] VITALS: BP 141/46; PULSE 67; O2SAT 92
--- NOTE | 2021-06-24 07:31 | XRAY ---
Indication: Headache and dizziness. Increased blood pressure. Stroke. Multiple contiguous axial images obtained through the head without contrast. Comparison: January 01, 2021. Age-appropriate global atrophy and minimal periventricular degenerative micro-ischemia bilaterally. No acute intracranial hemorrhage, abnormal extra-axial fluid collection, or mass effect. Fourth ventricle is midline without hydrocephalus. Baldwin-white matter differentiation preserved. Bony calvarium intact. Visualized paranasal sinuses and mastoid air cells are clear. Impression: Nonacute senile brain.
== END 2021-06-23 19:57 | disposition home or self-care (01) ==
LOC: ED 17:14
DX: R51.9 Headache, unspecified (principal); I10 Essential (primary) hypertension; E78.5 Hyperlipidemia, unspecified; E11.42 Type 2 diabetes mellitus with diabetic polyneuropathy; Z79.84 Long term (current) use of oral hypoglycemic drugs; I25.10 Atherosclerotic heart disease of native coronary artery without angina pectoris; K74.60 Unspecified cirrhosis of liver; K58.9 Irritable bowel syndrome, unspecified; F41.9 Anxiety disorder, unspecified; Z79.891 Long term (current) use of opiate analgesic; Z79.899 Other long term (current) drug therapy
CPT/HCPCS: 36000; 36415; 70450; 80053; 81001; 85025; 93041; 94760; 96374; 96375; 99284; J2270; J2405

== ENCOUNTER 2021-09-18 15:30 | Emergency (ER) | payer MEDICARE ==
--- NOTE | 2021-09-18 15:41 | ERPHSYRPT ---
- History of Present Illness Time Seen by Provider: 09/18/21 15:40 Historian: patient Exam Limitations: no limitations Physician History: This is a 66-year-old obese white female patient of Dr. Valenzuela who presents with 2-day history of left lower quadrant abdominal pain and diarrhea. Patient does have a history of diverticulitis. Patient states this feels different than her other diverticulitis attacks. Patient has a history of migraine headaches, hypertension, peripheral neuropathy, gastric ulcer disease, gastroesophageal reflux disease, elevated cholesterol, coronary artery disease, COPD, type 2 diabetes, arthritis, fibromyalgia, cirrhosis, irritable bowel syndrome, anxiety and depression. She does see a pain specialist in [place] for her chronic pa in [facility]. Patient denies chest pain. She denies shortness of breath at this time. Timing/Duration: day(s) (2) Quality: aching Abdominal Pain Onset Location: LLQ Pain Radiation: no radiation Severity of Pain-Max: moderate Severity of Pain-Current: mild (To moderate left lower quadrant aching) Associated Symptoms: diarrhea, nausea Previous symptoms: no recent treatment Allergies/Adverse Reactions: gabapentin Allergy (Severe, Verified 09/18/21 15:51) fluoxetine HCl [From Prozac] Allergy (Intermediate, Verified 09/18/21 15:51) Hives Latex, Natural Rubber Allergy (Mild, Verified 09/18/21 15:51) Hives Home Medications: ARIPiprazole [Aripiprazole] 5 mg DAILY 11/16/18 [History] Duloxetine HCl 60 mg PO DAILY 11/16/18 [History] Oxycodone / APAP 10/325 mg [Oxycodone-Acetaminophen 10-325] 1 tab PO TID 11/16/18 [History] Tizanidine HCl 4 mg PO DAILY 11/16/18 [History] Albuterol 8 gm Mdi Hfa [Ventolin Hfa MDI] 2 inh PO Q4H 12/05/19 [History] Aspirin EC 81 mg [Ecotrin 81 mg] 81 mg PO DAILY 12/05/19 [History] Atorvastatin Calcium [Lipitor] 40 mg PO DAILY 12/05/19 [History] Buspirone HCl [Buspar] 10 mg PO BID 12/05/19 [History] Dicyclomine HCl 20 mg [Bentyl 20 mg] 20 mg PO TID 12/05/19 [History] Hydroxychloroquine Sulfate 200 mg PO DAILY 12/05/19 [History] Lisinopril/Hydrochlorothiazide [Lisinopril-Hctz 20-12.5 mg Tab] 1 each PO DAILY 12/05/19 [History] Metformin HCl [Glucophage] 1,000 mg PO BID 12/05/19 [History] Montelukast Sodium 10 mg [Singulair 10 MG] 10 mg PO DAILY 12/05/19 [History] Omeprazole 20 mg PO DAILY 12/05/19 [History] Propranolol HCl [Propranolol HCl ER] 80 mg PO DAILY 12/05/19 [History] Ropinirole HCl [Requip] 0.5 - 1 tab PO DAILY 12/05/19 [History] Topiramate [Topamax] 100 mg PO BID 12/05/19 [History] Trazodone HCl 50 mg [Desyrel 50 mg] 25 mg PO DAILY 12/05/19 [History] Verapamil HCl [Verapamil ER] 120 mg PO DAILY 12/05/19 [History] hydrOXYzine pamoate [Hydroxyzine Pamoate] 25 mg PO DAILY 12/05/19 [History] Erenumab-Aooe [Aimovig Autoinjector] 70 mg SQ UD 05/13/21 [History] Glipizide [Glipizide ER] 5 mg PO DAILY 05/13/21 [History] Metformin HCl [Metformin ER Gastric] 1,000 mg PO BID 05/13/21 [History] Potassium Chloride [Klor-Con M20] 20 meq PO BID 05/13/21 [History] Pregabalin 150 mg PO DAILY 05/13/21 [History] Sildenafil Citrate [Sildenafil] 20 mg PO TID 05/13/21 [History] Hx Tetanus, Diphtheria Vaccination/Date Given: Yes Hx Influenza Vaccination/Date Given: Yes Hx Pneumococcal Vaccination/Date Given: Yes Travel Risk - International Travel Have you traveled outside of the country in past 3 weeks: No - Coronavirus Screening Are you exhibiting any of the following symptoms?: No Close contact with a COVID-19 positive Pt in past 14-21 Days: No - Vaccine Status Have you recieved a Covid-19 vaccination: Yes [employer]: Moderna - Vaccination Dates Date of 2cond Vaccination (if applicable): 10/2020 Comment: Booster May 2021 - Review of Systems Constitutional: No Symptoms Eyes: No Symptoms Ears, Nose, & Throat: No Symptoms Respiratory: No Symptoms Cardiac: No Symptoms Abdominal/Gastrointestinal: Abdominal Pain, Nausea, Diarrhea Genitourinary Symptoms: No Symptoms Musculoskeletal: No Symptoms Skin: No Symptoms Neurological: No Symptoms Psychological: No Symptoms Endocrine: No Symptoms Hematologic/Lymphatic: No Symptoms Immunological/Allergic: No Symptoms All Other Systems: Reviewed and Negative - Past Medical History Pertinent Past Medical History: Yes (sarcoidosis, migraine, hypoxia) Neurological History: Migraines, Peripheral Neuropathy ENT History: Other Cardiac History: Congestive Heart Failure, High Cholesterol, Hypertension, Myocardial Infarction ([place]) Respiratory History: Sleep Apnea Endocrine Medical History: Diabetes Type II, Other Musculoskeletal History: Osteoarthritis GI Medical History: Cirrhosis, Diverticulitis, Hernia, Irritable Bowel History: No Pertinent History Psycho-Social History: Anxiety, Depression Female Reproductive Disorders: Cervical Cancer Other Medical History: CIRRHOSIS OF LIVER, NEUROPATHY IN LEGS. DRUG INDUCED MO FOLLOWIN A HYSTERECTOMY. PT HAS AN INTERNAL PAIN STIMULATOR AND IT IS CURRENTLY ACTIVE. PT HAS OA OF THE BACK. L HIP SPURS. - Past Surgical History Past Surgical History: Yes Neuro Surgical History: No Pertinent History Cardiac: No Pertinent History, Cardiac Catheterization Respiratory: No Pertinent History Gastrointestinal: Cholecystectomy, Hernia Repair Genitourinary: No Pertinent History Musculoskeletal: No Pertinent History Female Surgical History: Hysterectomy - Social History Smoking Status: Never smoker Exposure to second hand smoke: Yes Drug Use: none Patient Lives Alone: Yes - Nursing Vital Signs Nursing Vital Signs: Initial Vital Signs Temperature 97.2 F 09/18/21 15:43 Pulse Rate 60 09/18/21 15:43 Respiratory Rate 16 09/18/21 15:43 Blood Pressure 183/92 09/18/21 15:43 O2 Sat by Pulse Oximetry 96 09/18/21 15:43 Pain Scale Pain Intensity 5 - Physical Exam General Appearance: no apparent distress, alert, anxiety, obese Eye Exam: PERRL/EOMI, eyes nml inspection Ears, Nose, Throat Exam: normal ENT inspection, moist mucous membranes Neck Exam: normal inspection, non-tender, supple, full range of motion Respiratory Exam: normal breath sounds, lungs clear, airway intact, No chest tenderness, No respiratory distress Cardiovascular Exam: regular rate/rhythm, normal heart sounds, normal peripheral pulses Gastrointestinal/Abdomen Exam: soft, normal bowel sounds, tenderness (Left lower quadrant), guarding (Left lower quadrant), No rebound Pelvic Exam: not done Rectal Exam: not done Back Exam: normal inspection, normal range of motion, No CVA tenderness, No vertebral tenderness Extremity Exam: normal inspection, normal range of motion, pelvis stable Neurologic Exam: alert, oriented x 3, cooperative, egg worker II-XII nml as tested, normal mood/affect, nml cerebellar function, nml station & gait, sensation nml Skin Exam: normal color, warm, dry Lymphatic Exam: No adenopathy SpO2 Interpretation: normal O2 Delivery: Room Air - Course Nursing assessment & vital signs reviewed: Yes Ordered Tests: Active Orders 24 hr Category Date Time Status IV Insertion STAT Care 09/18/21 15:51 Active ABDOMEN AND PELVIS W/0 CONTRAS [CT] Stat Exams 09/18/21 15:51 Completed AMYLASE Stat Lab 09/18/21 15:59 Completed CBC W DIFF Stat Lab 09/18/21 15:59 Completed CMP Stat Lab 09/18/21 15:59 Completed LIPASE Stat Lab 09/18/21 15:59 Completed Lactic Acid Stat Lab 09/18/21 16:00 Completed UA W/RFX CULTURE Stat Lab 09/18/21 15:55 Completed Medication Summary Discontinued Medications Generic Name Dose Route Start Last Admin Trade Name Caseyq PRN Reason Stop Dose Admin Sodium Chloride 1,000 mls @ 999 mls/hr 09/18/21 15:51 09/18/21 16:03 Sodium Chloride 0.9% 1000 Ml IV 09/18/21 16:51 999 mls/hr .Q1H1M STA Administration Sodium Chloride Confirm 09/18/21 16:02 Sodium Chloride 0.9% 1000 Ml Administered 09/18/21 16:03 Dose 1,000 mls @ ud .ROUTE .STK-MED ONE Ondansetron HCl 4 mg 09/18/21 15:51 09/18/21 16:05 Ondansetron Hcl 4 Mg/2 Ml Vial IV 09/18/21 15:52 4 mg STAT ONE Administration Ondansetron HCl Confirm 09/18/21 16:02 Ondansetron Hcl 4 Mg/2 Ml Vial Administered 09/18/21 16:03 Dose 4 mg .ROUTE .STK-MED ONE Oxycodone/Acetaminophen 1 tab 09/18/21 17:01 09/18/21 17:06 Oxycodone / Apap 10/325 Mg 1 Tablet PO 09/18/21 17:02 1 tab STAT STA Administration Oxycodone/Acetaminophen Confirm 09/18/21 17:04 Oxycodone / Apap 10/325 Mg 1 Tablet Administered 09/18/21 17:05 Dose 1 tab .ROUTE .STK-MED ONE Lab/Rad Data: Laboratory Result Diagrams 09/18/21 15:59 09/18/21 15:59 Laboratory Results 09/18/21 09/18/21 09/18/21 Range/Units 16:00 15:59 15:59 WBC 5.8 (4.0-10.5) K/mm3 RBC 4.82 (4.1-5.4) M/mm3 Hgb 12.7 (12.0-16.0) gm/dl Hct 41.0 (35-47) % MCV 85.1 (78-100) fl MCH 26.3 (26-32) pg MCHC 31.0 L (32-36) g/dl RDW 14.9 H (11.5-14.0) % Plt Count 145 L (150-450) K/mm3 MPV 10.1 (7.5-11.0) fl Gran % 57.9 (36.0-66.0) % Eos # (Auto) 0.17 (0-0.5) Absolute Lymphs (auto) 1.74 (1.0-4.6) Absolute Monos (auto) 0.53 (0.0-1.3) Lymphocytes % 29.8 (24.0-44.0) % Monocytes % 9.1 (0.0-12.0) % Eosinophils % 2.9 (0.00-5.0) % Basophils % 0.3 (0.0-0.4) % Absolute Granulocytes 3.38 (1.4-6.9) Basophils # 0.02 (0-0.4) Sodium 141 (137-145) mmol/L Potassium 4.0 (3.5-5.1) mmol/L Chloride 105 (98-107) mmol/L Carbon Dioxide 25 (22-30) mmol/L Anion Gap 15.4 H (5-15) MEQ/L BUN 14 (7-17) mg/dL Creatinine 0.99 (0.52-1.04) mg/dL Estimated GFR 59.6 ML/MIN Glucose 118 H (74-106) mg/dL Lactic Acid 1.2 (0.4-2.0) Calcium 9.5 (8.4-10.2) mg/dL Total Bilirubin 0.70 (0.2-1.3) mg/dL AST 57 H (14-36) U/L ALT 19 (0-35) U/L Alkaline Phosphatase 91 (38-126) U/L Serum Total Protein 8.5 H (6.3-8.2) g/dL Albumin 4.2 (3.5-5.0) g/dL Amylase 104 (30-110) U/L Lipase 152 (23-300) U/L Urinalys Dipstick Clnc Urine Color (YELLOW) Urine Appearance (CLEAR) Urine pH (5-6) Ur Specific Downing (1.005-1.025) POC Urine Protein Conf (Negative) Urine Ketones (NEGATIVE) Urine Nitrite (NEGATIVE) Urine Bilirubin (NEGATIVE) Urine Urobilinogen (0-1) mg/dL Urine Leukocytes (NEGATIVE) Urine WBC (Auto) (0-5) /HPF Urine RBC (Auto) (0-2) /HPF U Hyaline Cast (Auto) (0-2) /LPF U Epithel Cells (Auto) (FEW) /HPF Urine Bacteria (Auto) (NEGATIVE) /HPF Urine RBC (0-5) Jason/ul Urine Mucus (Auto) (NEGATIVE) /HPF Ur Culture Indicated? Urine Glucose (NEGATIVE) mg/dL 09/18/21 Range/Units 15:55 WBC (4.0-10.5) K/mm3 RBC (4.1-5.4) M/mm3 Hgb (12.0-16.0) gm/dl Hct (35-47) % MCV (78-100) fl MCH (26-32) pg MCHC (32-36) g/dl RDW (11.5-14.0) % Plt Count (150-450) K/mm3 MPV (7.5-11.0) fl Gran % (36.0-66.0) % Eos # (Auto) (0-0.5) Absolute Lymphs (auto) (1.0-4.6) Absolute Monos (auto) (0.0-1.3) Lymphocytes % (24.0-44.0) % Monocytes % (0.0-12.0) % Eosinophils % (0.00-5.0) % Basophils % (0.0-0.4) % Absolute Granulocytes (1.4-6.9) Basophils # (0-0.4) Sodium (137-145) mmol/L Potassium (3.5-5.1) mmol/L Chloride (98-107) mmol/L Carbon Dioxide (22-30) mmol/L Anion Gap (5-15) MEQ/L BUN (7-17) mg/dL Creatinine (0.52-1.04) mg/dL Estimated GFR ML/MIN Glucose (74-106) mg/dL Lactic Acid (0.4-2.0) Calcium (8.4-10.2) mg/dL Total Bilirubin (0.2-1.3) mg/dL AST (14-36) U/L ALT (0-35) U/L Alkaline Phosphatase (38-126) U/L Serum Total Protein (6.3-8.2) g/dL Albumin (3.5-5.0) g/dL Amylase (30-110) U/L Lipase (23-300) U/L Urinalys Dipstick Clnc MAIN LAB Urine Color YELLOW (YELLOW) Urine Appearance CLEAR (CLEAR) Urine pH 5.5 (5-6) Ur Specific Downing >=1.030 (1.005-1.025) POC Urine Protein Conf TRACE (Negative) Urine Ketones NEGATIVE (NEGATIVE) Urine Nitrite NEGATIVE (NEGATIVE) Urine Bilirubin NEGATIVE (NEGATIVE) Urine Urobilinogen 0.2 (0-1) mg/dL Urine Leukocytes NEGATIVE (NEGATIVE) Urine WBC (Auto) 0-2 (0-5) /HPF Urine RBC (Auto) 0-2 (0-2) /HPF U Hyaline Cast (Auto) 0-2 (0-2) /LPF U Epithel Cells (Auto) RARE (FEW) /HPF Urine Bacteria (Auto) NONE (NEGATIVE) /HPF Urine RBC NEGATIVE (0-5) Jason/ul Urine Mucus (Auto) SLIGHT (NEGATIVE) /HPF Ur Culture Indicated? NO Urine Glucose NEGATIVE (NEGATIVE) mg/dL - Progress Progress: improved, pain not gone completely, re-examined Progress Note: 09/18/21 18:09 CAT scan of the abdomen pelvis shows possible mild/early sigmoid colon diverticulitis. There is no free air. There is no fluid collection and no abscess. Medical decision making: This patient appears to have possible mild/early sigm oid colon diverticulitis. She has a history of recurrent diverticulitis and we will go ahead and treat her with Cipro and Flagyl. She will follow-up with her primary care physician for further evaluation and management 09/18/21 18:10 Counseled pt/family regarding: lab results, diagnosis, need for follow-up, rad results - Departure Departure Disposition: Home Clinical Impression: Diverticulitis large intestine Condition: Stable Critical Care Time: No Referrals: GUILLERMO VALENZUELA [Primary Care Provider] - Follow up/PCP as directed Additional Instructions: Drink plenty of clear liquids. Take your medication as prescribed. Follow-up with your primary care provider for further evaluation and management. Prescriptions: Ciprofloxacin [Cipro 500 MG] 500 mg PO BID #14 tablet Metronidazole 500 mg [Flagyl 500 MG] 500 mg PO TID #21 tablet
[2021-09-18] MEDS ORDERED: Sodium Chloride 0.9% 1000 ML 1,000 ML ONE (16:02)
[2021-09-18] MEDS ORDERED: Zofran 4 MG/2 ML VIAL ONE (16:02)
[2021-09-18] MEDS: Sodium Chloride 0.9% 1000 ML 1,000 ML IV STA (16:03)
[2021-09-18] MEDS: Zofran 4 MG/2 ML VIAL IV ONE (16:05)
[2021-09-18 16:11] LABS: Absolute Neutrophil Ct (ANC) 3.38 (1.4-6.9); Basophil (Absolute #) 0.02 (0-0.4); Eosinophil % 2.9 % (0.00-5.0); Eosinophil (Absolute #) 0.17 (0-0.5); Hemoglobin 12.7 gm/dl (12.0-16.0); Lymphocyte (Absolute #) 1.74 (1.0-4.6); Lymphocytes % 29.8 % (24.0-44.0); Mean Cell Volume 85.1 fl (78-100); Mean Corpuscular Hemoglobin 26.3 pg (26-32); Mean Platelet Volume 10.1 fl (7.5-11.0); Monocyte (Absolute #) 0.53 (0.0-1.3); Monocytes % 9.1 % (0.0-12.0); Neutrophil % 57.9 % (36.0-66.0); Platelet Count 145 K/mm3 (150-450); Red Blood Count 4.82 M/mm3 (4.1-5.4); Red Cell Distribution Width 14.9 % (11.5-14.0); White Blood Count 5.8 K/mm3 (4.0-10.5)
[2021-09-18 16:13] LABS: Appearance CLEAR (CLEAR); Bilirubin NEGATIVE (NEGATIVE); Dipstick done @ ? MAIN LAB; Glucose NEGATIVE (NEGATIVE); Ketones NEGATIVE (NEGATIVE); Nitrite NEGATIVE (NEGATIVE); Ph 5.5 (5-6); Protein,Urine Dip TRACE (Negative); RBC NEGATIVE Ery/ul (0-5); Specific Gravity >=1.030 (1.005-1.025); Urobilinogen 0.2 mg/dL (0-1)
[2021-09-18 16:14] LABS: Epithelial Cells RARE /HPF (FEW); Hyaline Casts 0-2 /LPF (0-2); Mucus SLIGHT /HPF (NEGATIVE); RBC 0-2 /HPF (0-2); WBC 0-2 /HPF (0-5)
[2021-09-18 16:15] LABS: Urine Cultured Indicated? NO
[2021-09-18 16:18] LABS: ALBUMIN 4.2 g/dL (3.5-5.0); ANION GAP 15.4 MEQ/L (5-15); BILIRUBIN,TOTAL 0.7 mg/dL (0.2-1.3); Calcium 9.5 mg/dL (8.4-10.2); Creatinine 1 0.99 mg/dL (0.52-1.04); EST GLOMERULAR FILTRATION RATE 59.6 ML/MIN; Total Protein 8.5 g/dL (6.3-8.2)
[2021-09-18] MEDS ORDERED: OXYCODONE-ACETAMINOPHEN 10-325 ONE (17:04)
[2021-09-18] MEDS: OXYCODONE-ACETAMINOPHEN 10-325 PO STA (17:06)
[2021-09-18 17:23] VITALS: BP 104/77; PULSE 63; O2SAT 98
--- NOTE | 2021-09-18 17:58 | XRAY ---
Exam: CT of the abdomen and pelvis without IV contrast from 09/18/2021. CTDI: 23.01 mGy Comparison: CT of the abdomen and pelvis without IV contrast from 01/01/2021. Indication: 66-year-old female with left lower quadrant abdominal pain and nausea; history of diverticulitis with 1 foot of colon removed in the past; prior history of cholecystectomy, appendectomy, and hysterectomy. Technique: Non-IV contrast axial images were obtained through the abdomen and pelvis. Reconstructed coronal and sagittal images were created and reviewed. No oral contrast was given. 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 Two epidural leads enter the spinal canal at the thoracolumbar junction. The lead tips are directed superiorly at the T7 level. The neurostimulator device is new as compared to 01/01/2021. The visualized lung bases again reveal some chronic linear atelectasis/scarring within the lingula and the anterior medial right lung base. There appears to be a small air-filled hiatal hernia representing no change. The liver is mildly enlarged measuring about 20 cm in craniocaudal dimension. This is unchanged. No definite liver mass or intrahepatic biliary duct distention is seen. There is an uneven surface contour of the liver suggestive of cirrhosis. Surgical clips consistent with prior cholecystectomy are again seen. The spleen measures 15.3 cm in greatest transverse diameter on axial image #16 consistent with splenomegaly. This may be slightly larger as compared to 01/01/2021. No focal splenic mass is seen. The pancreas and adrenal glands appear unremarkable. The kidneys are of normal size and shape and reveal no gross mass, renal calculi, or hydronephrosis. The ureters appear of normal diameter and reveal no definite ureterolith. Mild atherosclerotic vascular calcification is seen within the abdominal aorta and iliac arteries. No abdominal aortic aneurysm or abnormal retroperitoneal lymphadenopathy is seen. The patient is noted to be obese. I again see postsurgical changes within the lower anterior abdominal wall from prior ventral hernia repair surgery. This appears unchanged. No new ventral hernia or free intraperitoneal air is seen. I see no evidence of bowel distention. The appendix is not seen consistent with the patient's history of prior appendectomy. Scattered diverticula are noted throughout the colon consistent with extensive diverticulosis. I see small surgical clips/suture material within the sigmoid colon region consistent with prior partial colon resection and reanastomosis. A mild amount of scattered stool is seen. On the coronal images, I note some slight pericolonic haziness within the fat adjacent to the remaining sigmoid colon. The possibility of mild diverticulitis is not excluded. I see no drainable fluid collection or abscess. The uterus is surgically absent. The urinary bladder is mostly empty. No urinary bladder stone is seen. There is no free intraperitoneal fluid. The skeleton reveals degenerative changes within the lower thoracic spine and lumbar spine. Mild asymmetric enlargement of the right L5 transverse process is seen representing a developmental variant. This is unchanged from 01/01/2021. No aggressive bone lesion is seen. Impression: 1. Extensive diverticulosis is seen throughout the remaining colon, the greatest number of diverticula seen within the sigmoid colon. Mild pericolonic haziness of the fat adjacent to the sigmoid colon within the left lower quadrant is seen and might reflect early/mild diverticulitis. Correlate clinically. I see no abscess or drainable fluid collection. There is no free fluid within the pelvis. 2. Stable hepatomegaly with some fatty infiltration and unevenness of the liver surface suggestive of cirrhosis. The spleen also appears enlarged measuring 15.3 cm in greatest diameter which could be due to an element of portal venous hypertension. 3. Status post cholecystectomy, appendectomy, and hysterectomy. 4. Small aerated hiatal hernia representing no change. 5. Evidence of lower anterior abdominal wall hernia repair surgery representing no change. 6. Interval placement of neurostimulator.
[2021-09-18] MEDS ORDERED: Levofloxacin 500 MG Tablet ONE (18:23)
[2021-09-18] MEDS ORDERED: Flagyl 500 MG ONE (18:24)
[2021-09-18] MEDS: Levofloxacin 500 MG Tablet PO ONE (18:25)
[2021-09-18] MEDS: Flagyl 500 MG PO ONE (18:25)
== END 2021-09-18 18:35 | disposition home or self-care (01) ==
LOC: ED 15:30
DX: K57.32 Diverticulitis of large intestine without perforation or abscess without bleeding (principal); R10.32 Left lower quadrant pain; R19.7 Diarrhea, unspecified; R11.0 Nausea; E78.5 Hyperlipidemia, unspecified; I11.0 Hypertensive heart disease with heart failure; I50.9 Heart failure, unspecified; J44.9 Chronic obstructive pulmonary disease, unspecified; E11.42 Type 2 diabetes mellitus with diabetic polyneuropathy; Z79.84 Long term (current) use of oral hypoglycemic drugs; Z79.891 Long term (current) use of opiate analgesic; Z79.899 Other long term (current) drug therapy
CPT/HCPCS: 36000; 36415; 74176; 80053; 81015; 82150; 83605; 83690; 85025; 96374; 99284; J2405; A9270-GY

== ENCOUNTER 2021-09-19 14:52 | Emergency (ER) | payer MEDICARE ==
[2021-09-19] MEDS ORDERED: BENADRYL 50 MG/ML IV ONE (15:33)
[2021-09-19] MEDS ORDERED: Sodium Chloride 0.9% 1000 ML 1,000 ML IV STA (15:33)
[2021-09-19] MEDS ORDERED: Compazine 10 MG/2 ML IV ONE (15:34)
[2021-09-19] MEDS ORDERED: Sodium Chloride 0.9% 1000 ML 1,000 ML ONE (15:35)
[2021-09-19] MEDS ORDERED: TORAdol 30 mg Injection IM ONE (15:35)
[2021-09-19] MEDS ORDERED: BENADRYL 50 MG/ML ONE (15:35)
[2021-09-19] MEDS ORDERED: Compazine 10 MG/2 ML ONE (15:36)
[2021-09-19] MEDS ORDERED: TORAdol 30 mg Injection ONE (15:36)
--- NOTE | 2021-09-19 16:52 | ERPHSYRPT ---
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 Patient has a history of migraine headaches. Patient currently on ubrelvy. Patient has history of migraine headaches. Patient headache today is typical of her usual headaches. Patient took her migraine headache today but states it did not help. Patient also has a history of hypertension and has not taken her blood pressure medication today due to her headache. No trauma. No fever. No neck pain. No numbness tingling or weakness. Symptoms are mild to moderate in intensity. No specific worsening improving factors. Patient is experiencing some photophobia and noise sensitivity. Patient states this is typical of her usual migraine headache. Patient voices no other complaints or concerns at this time. Timing/Duration: yesterday Quality: aching Severity of Pain-Max: moderate Severity of Pain-Current: mild Recent Head Trauma: no recent headache/trauma Modifying Factors: Improves With: exposure to light, noise Associated Symptoms: denies symptoms, sensitive to light, No dizziness, No nausea/vomiting, No neck pain, No stiff neck Previous symptoms: same symptoms as today Allergies/Adverse Reactions: gabapentin Allergy (Severe, Verified 09/19/21 15:19) fluoxetine HCl [From Prozac] Allergy (Intermediate, Verified 09/19/21 15:19) Hives Latex, Natural Rubber Allergy (Mild, Verified 09/19/21 15:19) Hives Home Medications: ARIPiprazole [Aripiprazole] 5 mg DAILY 11/16/18 [History] Duloxetine HCl 60 mg PO DAILY 11/16/18 [History] Oxycodone / APAP 10/325 mg [Oxycodone-Acetaminophen 10-325] 1 tab PO TID 11/16/18 [History] Tizanidine HCl 4 mg PO DAILY 11/16/18 [History] Albuterol 8 gm Mdi Hfa [Ventolin Hfa MDI] 2 inh PO Q4H 12/05/19 [History] Aspirin EC 81 mg [Ecotrin 81 mg] 81 mg PO DAILY 12/05/19 [History] Atorvastatin Calcium [Lipitor] 40 mg PO DAILY 12/05/19 [History] Buspirone HCl [Buspar] 10 mg PO BID 12/05/19 [History] Dicyclomine HCl 20 mg [Bentyl 20 mg] 20 mg PO TID 12/05/19 [History] Hydroxychloroquine Sulfate 200 mg PO DAILY 12/05/19 [History] Lisinopril/Hydrochlorothiazide [Lisinopril-Hctz 20-12.5 mg Tab] 1 each PO DAILY 12/05/19 [History] Metformin HCl [Glucophage] 1,000 mg PO BID 12/05/19 [History] Montelukast Sodium 10 mg [Singulair 10 MG] 10 mg PO DAILY 12/05/19 [History] Omeprazole 20 mg PO DAILY 12/05/19 [History] Propranolol HCl [Propranolol HCl ER] 80 mg PO DAILY 12/05/19 [History] Ropinirole HCl [Requip] 0.5 - 1 tab PO DAILY 12/05/19 [History] Topiramate [Topamax] 100 mg PO BID 12/05/19 [History] Trazodone HCl 50 mg [Desyrel 50 mg] 25 mg PO DAILY 12/05/19 [History] Verapamil HCl [Verapamil ER] 120 mg PO DAILY 12/05/19 [History] hydrOXYzine pamoate [Hydroxyzine Pamoate] 25 mg PO DAILY 12/05/19 [History] Erenumab-Aooe [Aimovig Autoinjector] 70 mg SQ UD 05/13/21 [History] Glipizide [Glipizide ER] 5 mg PO DAILY 05/13/21 [History] Metformin HCl [Metformin ER Gastric] 1,000 mg PO BID 05/13/21 [History] Potassium Chloride [Klor-Con M20] 20 meq PO BID 05/13/21 [History] Pregabalin 150 mg PO DAILY 05/13/21 [History] Sildenafil Citrate [Sildenafil] 20 mg PO TID 05/13/21 [History] Hx Tetanus, Diphtheria Vaccination/Date Given: Yes Hx Influenza Vaccination/Date Given: Yes Hx Pneumococcal Vaccination/Date Given: No Travel Risk - International Travel Have you traveled outside of the country in past 3 weeks: No - Coronavirus Screening Are you exhibiting any of the following symptoms?: No Close contact with a COVID-19 positive Pt in past 14-21 Days: No - Vaccine Status Have you recieved a Covid-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 - Vaccination Dates Date of 2cond Vaccination (if applicable): 10/2020 Comment: Booster May 2021 - Review of Systems Constitutional: No Symptoms, No Fever, No Chills Eyes: No Symptoms Ears, Nose, & Throat: No Symptoms Respiratory: No Symptoms, No Cough, No Dyspnea Cardiac: No Symptoms, No Chest Pain, No Edema, No Syncope Abdominal/Gastrointestinal: No Symptoms, No Abdominal Pain, No Nausea, No Vomiting, No Diarrhea Genitourinary Symptoms: No Symptoms, No Dysuria Musculoskeletal: No Symptoms, No Back Pain, No Neck Pain Skin: No Symptoms, No Rash Neurological: No Symptoms, No Dizziness, No Focal Weakness, No Sensory Changes Psychological: No Symptoms Endocrine: No Symptoms Hematologic/Lymphatic: No Symptoms Immunological/Allergic: No Symptoms All Other Systems: Reviewed and Negative - Past Medical History Pertinent Past Medical History: Yes (sarcoidosis, migraine, hypoxia) Neurological History: Migraines, Peripheral Neuropathy ENT History: Other Cardiac History: Congestive Heart Failure, High Cholesterol, Hypertension, Myocardial Infarction ([place]) Respiratory History: Sleep Apnea Endocrine Medical History: Diabetes Type II, Other Musculoskeletal History: Osteoarthritis GI Medical History: Cirrhosis, Diverticulitis, Hernia, Irritable Bowel History: No Pertinent History Psycho-Social History: Anxiety, Depression Female Reproductive Disorders: Cervical Cancer Other Medical History: CIRRHOSIS OF LIVER, NEUROPATHY IN LEGS. DRUG INDUCED [place] FOLLOWIN A HYSTERECTOMY. PT HAS AN INTERNAL PAIN STIMULATOR AND IT IS CURRENTLY ACTIVE. PT HAS OA OF THE BACK. L HIP SPURS. - Past Surgical History Past Surgical History: Yes Neuro Surgical History: No Pertinent History Cardiac: No Pertinent History, Cardiac Catheterization Respiratory: No Pertinent History Gastrointestinal: Cholecystectomy, Hernia Repair Genitourinary: No Pertinent History Musculoskeletal: No Pertinent History Female Surgical History: Hysterectomy - Social History Smoking Status: Never smoker Exposure to second hand smoke: Yes Drug Use: none Patient Lives Alone: Yes - Nursing Vital Signs Nursing Vital Signs: Initial Vital Signs Temperature 96.5 F 09/19/21 15:20 Pulse Rate 58 L 09/19/21 15:20 Respiratory Rate 22 09/19/21 15:20 Blood Pressure 213/101 09/19/21 15:20 O2 Sat by Pulse Oximetry 98 09/19/21 15:20 Pain Scale Pain Intensity 3 - Physical Exam General Appearance: no apparent distress Eye Exam: PERRL/EOMI Ears, Nose, Throat Exam: normal ENT inspection, moist mucous membranes Neck Exam: normal inspection, supple, full range of motion, No meningismus Respiratory Exam: normal breath sounds, lungs clear, airway intact, No respiratory distress Cardiovascular Exam: regular rate/rhythm, normal heart sounds, normal peripheral pulses Gastrointestinal/Abdominal Exam: soft, No tenderness, No distention Back Exam: normal inspection, normal range of motion Extremity Exam: normal inspection Mental Status Exam: alert, oriented x 3, 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 Exam: normal speech, PERRL, No facial droop Coordination/Gait Exam: normal finger to nose, normal cerebellar function Motor/Sensory Exam: no motor deficit, no sensory deficit Skin Exam: normal color, warm, dry, No rash Lymphatic Exam: No adenopathy SpO2 Interpretation: normal SpO2: 98 O2 Delivery: Room Air - Course Nursing assessment & vital signs reviewed: Yes Ordered Tests: Active Orders 24 hr Category Date Time Status IV Insertion STAT Care 09/19/21 15:33 Active Pulse Oximetry (ED) STAT Care 09/19/21 15:33 Active Medication Summary Discontinued Medications Generic Name Dose Route Start Last Admin Trade Name Valeria PRN Reason Stop Dose Admin Diphenhydramine HCl 25 mg 09/19/21 15:33 09/19/21 15:38 Diphenhydramine Hcl 50 Mg/Ml Vial IV 09/19/21 15:34 25 mg STAT ONE Administration Diphenhydramine HCl Confirm 09/19/21 15:35 Diphenhydramine Hcl 50 Mg/Ml Vial Administered 09/19/21 15:36 Dose 50 mg .ROUTE .STK-MED ONE Hydromorphone HCl 1 mg 09/19/21 16:58 09/19/21 17:22 Hydromorphone 1 Mg/1ml Inj 1 Mg/Ml Syringe IV 09/19/21 16:59 1 mg STAT ONE Administration Hydromorphone HCl Confirm 09/19/21 17:21 Hydromorphone 1 Mg/1ml Inj 1 Mg/Ml Syringe Administered 09/19/21 17:22 Dose 1 mg .ROUTE .STK-MED ONE Sodium Chloride 1,000 mls @ 999 mls/hr 09/19/21 15:33 09/19/21 16:48 Sodium Chloride 0.9% 1000 Ml IV 09/19/21 16:33 Infused .Q1H1M STA Infusion Sodium Chloride Confirm 09/19/21 15:35 Sodium Chloride 0.9% 1000 Ml Administered 09/19/21 15:36 Dose 1,000 mls @ ud .ROUTE .STK-MED ONE Ketorolac Tromethamine 30 mg 09/19/21 15:35 09/19/21 15:37 Ketorolac Tromethamine 30 Mg/Ml Inj IM 09/19/21 15:36 30 mg STAT ONE Administration Ketorolac Tromethamine Confirm 09/19/21 15:36 Ketorolac Tromethamine 30 Mg/Ml Inj Administered 09/19/21 15:37 Dose 30 mg .ROUTE .STK-MED ONE Prochlorperazine Edisylate 10 mg 09/19/21 15:34 09/19/21 15:38 Prochlorperazine Edisylate 10 Mg/2 Ml Vial IV 09/19/21 15:35 10 mg STAT ONE Administration Prochlorperazine Edisylate Confirm 09/19/21 15:36 Prochlorperazine Edisylate 10 Mg/2 Ml Vial Administered 09/19/21 15:37 Dose 10 mg .ROUTE .STK-MED ONE Propranolol HCl 120 mg 09/19/21 18:23 09/19/21 18:52 Propranolol Hcl 20 Mg Tablet PO 09/19/21 18:24 120 mg STAT ONE Administration Verapamil HCl 120 mg 09/19/21 18:24 09/19/21 18:50 Verapamil Hcl 80 Mg Tablet PO 09/19/21 18:25 120 mg STAT ONE Administration - Progress Progress: improved Air Movement: good Progress Note: Patient reassessed. Headache resolved. We administered patient's home meds for blood pressure control. Blood pressure significantly improved. Patient has no complaints at this time. Will discharge patient home. Patient agrees to follow-up with primary care doctor within 48 hours for evaluation. Portions of this note were created with voice recognition technology. There may be grammatical, spelling, punctuation or sound alike errors 09/19/21 19:51 Blood Culture(s) Obtained: No Antibiotics given: No Counseled pt/family regarding: diagnosis, need for follow-up, rad results - Departure Departure Disposition: Home Clinical Impression: Migraine, Essential hypertension Condition: Stable Critical Care Time: No Referrals: GUILLERMO CUEVA [Primary Care Provider] - Follow up/PCP as directed Instructions: Migraines in Adults Additional Instructions: Discharge/Care Plan SANDEEP HAMMOND was seen on 09/19/21 in the Emergency Room. The patient was counseled regarding Diagnosis,Lab results, Imaging studies, need for follow up and when to return to the Emergency Room. Prescriptions given: Discharge Note I have spoken with the patient and/or caregivers. I have explained the patient's condition, diagnosis and treatment plan based on the information available to me at this time. I have answered the patient's and/or caregiver's questions and addressed any concerns. The patient and/or caregivers have as good understanding of the patient's diagnosis, condition and treatment plan as can be expected at this point. The vital signs have been stable. The patient's condition is stable and appropriate for discharge from the emergency department. The patient will pursue further outpatient evaluation with the primary care physician or other designated or consulting physician as outlined in the discharge instructions. The patient and/or caregivers are agreeable to this plan of care and follow-up instructions have been explained in detail. The patient and/or caregivers have received these instruction. The patient/and or caregivers are aware that any significant change in condition or worsening of symptoms should prompt an immediate return to this or the closest emergency department or call 911.
[2021-09-19] MEDS ORDERED: Hydromorphone 1 mg/ml Injection IV ONE (16:58)
[2021-09-19] MEDS ORDERED: Hydromorphone 1 mg/ml Injection ONE (17:21)
[2021-09-19] MEDS ORDERED: Inderal 20 MG PO ONE (18:23)
[2021-09-19] MEDS ORDERED: CALAN 80 MG PO ONE (18:24)
[2021-09-19 19:45] VITALS: O2SAT 98
[2021-09-19 19:46] VITALS: BP 189/87; PULSE 52
== END 2021-09-19 19:52 | disposition home or self-care (01) ==
LOC: ED 14:52
DX: G43.909 Migraine, unspecified, not intractable, without status migrainosus (principal); I11.0 Hypertensive heart disease with heart failure; I50.9 Heart failure, unspecified; E78.5 Hyperlipidemia, unspecified; E11.9 Type 2 diabetes mellitus without complications; Z79.84 Long term (current) use of oral hypoglycemic drugs; Z79.891 Long term (current) use of opiate analgesic; Z79.899 Other long term (current) drug therapy
CPT/HCPCS: 36000; 94760; 96360; 96374; 96375; 99284; J1170; J1200; J1885; A9270-GY

== ENCOUNTER 2021-11-10 16:29 | Emergency (ER) | payer MEDICARE ==
--- NOTE | 2021-11-10 16:31 | ERPHSYRPT ---
- History of Present Illness Time Seen by Provider: 11/10/21 16:31 Historian: patient Exam Limitations: no limitations Physician History: This is a morbidly obese 66-year-old female patient of Dr. Tripathi who presents with recurrent left-sided abdominal pain. She does see a pain specialist in [place] for chronic pain issues. She has a history of ventral abdominal wall hernia repair, cholecystectomy and colon resection in the past. She also has a history of significant diverticulosis and recurrent sigmoid diverticulitis. On 09/18/2021 she was seen in this emergency room by me and was found to have mild, early sigmoid diverticulitis without abscess or perforation. Because of recurrent pain on 10/02/[address] scan of the abdomen pelvis without contrast and it showed no diverticulitis but there was significant sigmoid diverticulosis. Patient has a history of hypertension, peripheral neuropathy, gastric ulcer disease, gastroesophageal reflux disease, elevated cholesterol, coronary disease, COPD, diabetes, arthritis, fibromyalgia, cirrhosis, irritable bowel syndrome, anxiety/depression and recurrent diverticulitis. 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 Timing/Duration: worse Activities at Onset: none Quality: aching Abdominal Pain Onset Location: LLQ, suprapubic Pain Radiation: no radiation Severity of Pain-Max: moderate Severity of Pain-Current: mild (Mild to moderate) Modifying Factors: Improves With: nothing Associated Symptoms: denies symptoms Previous symptoms: same symptoms as today, no recent treatment Allergies/Adverse Reactions: gabapentin Allergy (Severe, Verified 11/10/21 16:35) fluoxetine HCl [From Prozac] Allergy (Intermediate, Verified 11/10/21 16:35) Hives Latex, Natural Rubber Allergy (Mild, Verified 11/10/21 16:35) Hives Home Medications: ARIPiprazole [Aripiprazole] 5 mg DAILY 11/16/18 [History] Duloxetine HCl 60 mg PO DAILY 11/16/18 [History] Oxycodone / APAP 10/325 mg [Oxycodone-Acetaminophen 10-325] 1 tab PO TID 11/16/18 [History] Tizanidine HCl 4 mg PO DAILY 11/16/18 [History] Albuterol 8 gm Mdi Hfa [Ventolin Hfa MDI] 2 inh PO Q4H 12/05/19 [History] Aspirin EC 81 mg [Ecotrin 81 mg] 81 mg PO DAILY 12/05/19 [History] Atorvastatin Calcium [Lipitor] 40 mg PO DAILY 12/05/19 [History] Buspirone HCl [Buspar] 10 mg PO BID 12/05/19 [History] Dicyclomine HCl 20 mg [Bentyl 20 mg] 20 mg PO TID 12/05/19 [History] Hydroxychloroquine Sulfate 200 mg PO DAILY 12/05/19 [History] Lisinopril/Hydrochlorothiazide [Lisinopril-Hctz 20-12.5 mg Tab] 1 each PO DAILY 12/05/19 [History] Metformin HCl [Glucophage] 1,000 mg PO BID 12/05/19 [History] Montelukast Sodium 10 mg [Singulair 10 MG] 10 mg PO DAILY 12/05/19 [History] Omeprazole 20 mg PO DAILY 12/05/19 [History] Propranolol HCl [Propranolol HCl ER] 80 mg PO DAILY 12/05/19 [History] Ropinirole HCl [Requip] 0.5 - 1 tab PO DAILY 12/05/19 [History] Topiramate [Topamax] 100 mg PO BID 12/05/19 [History] Trazodone HCl 50 mg [Desyrel 50 mg] 25 mg PO DAILY 12/05/19 [History] Verapamil HCl [Verapamil ER] 120 mg PO DAILY 12/05/19 [History] hydrOXYzine pamoate [Hydroxyzine Pamoate] 25 mg PO DAILY 12/05/19 [History] Erenumab-Aooe [Aimovig Autoinjector] 70 mg SQ UD 05/13/21 [History] Glipizide [Glipizide ER] 5 mg PO DAILY 05/13/21 [History] Metformin HCl [Metformin ER Gastric] 1,000 mg PO BID 05/13/21 [History] Potassium Chloride [Klor-Con M20] 20 meq PO BID 05/13/21 [History] Pregabalin 150 mg PO DAILY 05/13/21 [History] Sildenafil Citrate [Sildenafil] 20 mg PO TID 05/13/21 [History] Hx Tetanus, Diphtheria Vaccination/Date Given: Yes Hx Influenza Vaccination/Date Given: Yes Hx Pneumococcal Vaccination/Date Given: No Travel Risk - International Travel Have you traveled outside of the country in past 3 weeks: No - Coronavirus Screening Are you exhibiting any of the following symptoms?: No Close contact with a COVID-19 positive Pt in past 14-21 Days: No - Vaccine Status Have you recieved a Covid-19 vaccination: Yes Commercial 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: Moderna - Vaccination Dates Date of 2cond Vaccination (if applicable): 10/2020 Comment: Booster May 2021 - Review of Systems Constitutional: No Symptoms Eyes: No Symptoms Ears, Nose, & Throat: No Symptoms Respiratory: No Symptoms Cardiac: No Symptoms Abdominal/Gastrointestinal: Abdominal Pain (Left side and left supra pubic region pain), No Nausea, No Vomiting, No Diarrhea Genitourinary Symptoms: No Symptoms Musculoskeletal: No Symptoms Skin: No Symptoms Neurological: No Symptoms Psychological: No Symptoms Endocrine: No Symptoms Hematologic/Lymphatic: No Symptoms Immunological/Allergic: No Symptoms All Other Systems: Reviewed and Negative - Past Medical History Pertinent Past Medical History: Yes (sarcoidosis, migraine, hypoxia) Neurological History: Migraines, Peripheral Neuropathy ENT History: Other Cardiac History: Congestive Heart Failure, High Cholesterol, Hypertension, Myocardial Infarction ([place]) Respiratory History: Sleep Apnea Endocrine Medical History: Diabetes Type II, Other Musculoskeletal History: Osteoarthritis GI Medical History: Cirrhosis, Diverticulitis, Hernia, Irritable Bowel History: No Pertinent History Psycho-Social History: Anxiety, Depression Female Reproductive Disorders: Cervical Cancer Other Medical History: CIRRHOSIS OF LIVER, NEUROPATHY IN LEGS. DRUG INDUCED [place] FOLLOWIN A HYSTERECTOMY. PT HAS AN INTERNAL PAIN STIMULATOR AND IT IS CURRENTLY ACTIVE. PT HAS OA OF THE BACK. L HIP SPURS. - Past Surgical History Past Surgical History: Yes Neuro Surgical History: No Pertinent History Cardiac: No Pertinent History, Cardiac Catheterization Respiratory: No Pertinent History Gastrointestinal: Cholecystectomy, Hernia Repair Genitourinary: No Pertinent History Musculoskeletal: No Pertinent History Female Surgical History: Hysterectomy - Social History Smoking Status: Never smoker Exposure to second hand smoke: Yes Drug Use: none Patient Lives Alone: Yes - Nursing Vital Signs Nursing Vital Signs: Initial Vital Signs Temperature 98.4 F 11/10/21 16:35 Pulse Rate 75 11/10/21 16:35 Respiratory Rate 16 11/10/21 16:35 Blood Pressure 224/92 11/10/21 16:35 O2 Sat by Pulse Oximetry 96 11/10/21 16:35 Pain Scale Pain Intensity 5 - Physical Exam General Appearance: no apparent distress, alert, anxiety, obese Eye Exam: PERRL/EOMI, eyes nml inspection Ears, Nose, Throat Exam: normal ENT inspection, moist mucous membranes Neck Exam: normal inspection, non-tender, supple, full range of motion Respiratory Exam: normal breath sounds, lungs clear, airway intact, No chest tenderness, No respiratory distress Cardiovascular Exam: regular rate/rhythm, normal heart sounds, normal peripheral pulses Gastrointestinal/Abdomen Exam: soft, normal bowel sounds, tenderness (Left lower quadrant and suprapubic region), guarding (With palpation same region), No rebound Pelvic Exam: not done Rectal Exam: not done Back Exam: normal inspection, normal range of motion, No CVA tenderness, No vertebral tenderness Extremity Exam: normal inspection, normal range of motion, pelvis stable Neurologic Exam: alert, oriented x 3, cooperative, integration technician II-XII nml as tested, n ormal mood/affect, nml cerebellar function, nml station & gait, sensation nml Skin Exam: normal color, warm, dry Lymphatic Exam: No adenopathy SpO2 Interpretation: normal O2 Delivery: Room Air - Course Nursing assessment & vital signs reviewed: Yes Ordered Tests: Active Orders 24 hr Category Date Time Status IV Insertion STAT Care 11/10/21 17:05 Active ABDOMEN AND PELVIS W/0 CONTRAS [CT] Stat Exams 11/10/21 17:05 Taken AMYLASE Stat Lab 11/10/21 17:20 Completed BLOOD CULTURE Stat Lab 11/10/21 17:20 Ordered CBC W DIFF Stat Lab 11/10/21 17:20 Completed CMP Stat Lab 11/10/21 17:20 Completed LIPASE Stat Lab 11/10/21 17:20 Completed Lactic Acid Stat Lab 11/10/21 17:12 Completed UA W/RFX CULTURE Stat Lab 11/10/21 17:08 Completed Medication Summary Generic Name Dose Route Start Last Admin Trade Name Freq PRN Reason Stop Dose Admin Sodium Chloride 1,000 mls @ 100 mls/hr 11/10/21 17:15 11/10/21 17:13 Sodium Chloride 0.9% 1000 Ml IV 12/10/21 17:14 100 mls/hr .Q10H ANABELLE Administration Discontinued Medications Generic Name Dose Route Start Last Admin Trade Name Freq PRN Reason Stop Dose Admin Enalaprilat 1.25 mg 11/10/21 18:03 11/10/21 18:06 Enalaprilat 2.5 Mg Injection IV 11/10/21 18:04 1.25 mg STAT ONE Administration Enalaprilat Confirm 11/10/21 18:05 Enalaprilat 2.5 Mg Injection Administered 11/10/21 18:06 Dose 2.5 mg IV .STK-MED ONE Hydromorphone HCl 0.5 mg 11/10/21 17:05 11/10/21 17:13 Hydromorphone 1 Mg/1ml Inj 1 Mg/Ml Syringe IV 11/10/21 17:06 0.5 mg STAT ONE Administration Hydromorphone HCl Confirm 11/10/21 17:11 Hydromorphone 1 Mg/1ml Inj 1 Mg/Ml Syringe Administered 11/10/21 17:12 Dose 1 mg .ROUTE .STK-MED ONE Ondansetron HCl 4 mg 11/10/21 17:05 11/10/21 17:13 Ondansetron Hcl 4 Mg/2 Ml Vial IV 11/10/21 17:06 4 mg STAT ONE Administration Ondansetron HCl Confirm 11/10/21 17:08 Ondansetron Hcl 4 Mg/2 Ml Vial Administered 11/10/21 17:09 Dose 4 mg .ROUTE .STK-MED ONE Lab/Rad Data: Laboratory Result Diagrams 11/10/21 17:20 11/10/21 17:20 Laboratory Results 11/10/21 11/10/21 11/10/21 Range/Units 17:20 17:20 17:12 WBC 4.8 (4.0-10.5) x10^3/uL RBC 4.32 (4.1-5.4) x10^6/uL Hgb 11.5 L (12.0-16.0) g/dL Hct 37.1 (35-47) % MCV 85.9 (78-100) fL MCH 26.6 (26-32) pg MCHC 31.0 L (32-36) g/dL RDW 15.3 H (11.5-14.0) % Plt Count 135 L (150-450) x10^3/uL MPV 10.5 (7.5-11.0) fL Gran % 50.9 (36.0-66.0) % Immature Gran % (Auto) 0.4 (0.00-0.4) % Nucleat RBC Rel Count 0.0 (0.00-0.1) % Eos # (Auto) 0.17 (0-0.5) x10^3/uL Immature Gran # (Auto) 0.02 (0.00-0.03) x10^3u/L Absolute Lymphs (auto) 1.70 (1.0-4.6) x10^3/uL Absolute Monos (auto) 0.44 (0.0-1.3) x10^3/uL Absolute Nucleated RBC 0.00 (0.00-0.01) x10^3u/L Lymphocytes % 35.3 (24.0-44.0) % Monocytes % 9.1 (0.0-12.0) % Eosinophils % 3.5 (0.00-5.0) % Basophils % 0.8 (0.0-0.4) % Absolute Granulocytes 2.45 (1.4-6.9) x10^3/uL Basophils # 0.04 (0-0.4) x10^3/uL Sodium 140 (137-145) mmol/L Potassium 4.2 (3.5-5.1) mmol/L Chloride 107 (98-107) mmol/L Carbon Dioxide 22 (22-30) mmol/L Anion Gap 15.4 H (5-15) MEQ/L BUN 10 (7-17) mg/dL Creatinine 0.87 (0.52-1.04) mg/dL Estimated GFR > 60.0 ML/MIN Glucose 133 H (74-106) mg/dL Lactic Acid 1.8 (0.4-2.0) Calcium 9.2 (8.4-10.2) mg/dL Total Bilirubin 0.40 (0.2-1.3) mg/dL AST 44 H (14-36) U/L ALT 18 (0-35) U/L Alkaline Phosphatase 127 H (38-126) U/L Serum Total Protein 8.3 H (6.3-8.2) g/dL Albumin 4.0 (3.5-5.0) g/dL Amylase 84 (30-110) U/L Lipase 119 (23-300) U/L Urinalys Dipstick Clnc Urine Color (YELLOW) Urine Appearance (CLEAR) Urine pH (5-6) Ur Specific [place] (1.005-1.025) POC Urine Protein Conf (Negative) Urine Ketones (NEGATIVE) Urine Nitrite (NEGATIVE) Urine Bilirubin (NEGATIVE) Urine Urobilinogen (0-1) mg/dL Urine Leukocytes (NEGATIVE) Urine WBC (Auto) (0-5) /HPF Urine RBC (Auto) (0-2) /HPF U Epithel Cells (Auto) (FEW) /HPF Urine Bacteria (Auto) (NEGATIVE) /HPF Urine RBC (0-5) Jason/ul Urine Mucus (Auto) (NEGATIVE) /HPF Ur Culture Indicated? Urine Glucose (NEGATIVE) mg/dL 11/10/21 Range/Units 17:08 WBC (4.0-10.5) x10^3/uL RBC (4.1-5.4) x10^6/uL Hgb (12.0-16.0) g/dL Hct (35-47) % MCV (78-100) fL MCH (26-32) pg MCHC (32-36) g/dL RDW (11.5-14.0) % Plt Count (150-450) x10^3/uL MPV (7.5-11.0) fL Gran % (36.0-66.0) % Immature Gran % (Auto) (0.00-0.4) % Nucleat RBC Rel Count (0.00-0.1) % Eos # (Auto) (0-0.5) x10^3/uL Immature Gran # (Auto) (0.00-0.03) x10^3u/L Absolute Lymphs (auto) (1.0-4.6) x10^3/uL Absolute Monos (auto) (0.0-1.3) x10^3/uL Absolute Nucleated RBC (0.00-0.01) x10^3u/L Lymphocytes % (24.0-44.0) % Monocytes % (0.0-12.0) % Eosinophils % (0.00-5.0) % Basophils % (0.0-0.4) % Absolute Granulocytes (1.4-6.9) x10^3/uL Basophils # (0-0.4) x10^3/uL Sodium (137-145) mmol/L Potassium (3.5-5.1) mmol/L Chloride (98-107) mmol/L Carbon Dioxide (22-30) mmol/L Anion Gap (5-15) MEQ/L BUN (7-17) mg/dL Creatinine (0.52-1.04) mg/dL Estimated GFR ML/MIN Glucose (74-106) mg/dL Lactic Acid (0.4-2.0) Calcium (8.4-10.2) mg/dL Total Bilirubin (0.2-1.3) mg/dL AST (14-36) U/L ALT (0-35) U/L Alkaline Phosphatase (38-126) U/L Serum Total Protein (6.3-8.2) g/dL Albumin (3.5-5.0) g/dL Amylase (30-110) U/L Lipase (23-300) U/L Urinalys Dipstick Clnc MAIN LAB Urine Color YELLOW (YELLOW) Urine Appearance CLEAR (CLEAR) Urine pH 6.0 (5-6) Ur Specific [place] 1.015 (1.005-1.025) POC Urine Protein Conf NEGATIVE (Negative) Urine Ketones NEGATIVE (NEGATIVE) Urine Nitrite NEGATIVE (NEGATIVE) Urine Bilirubin NEGATIVE (NEGATIVE) Urine Urobilinogen 0.2 (0-1) mg/dL Urine Leukocytes NEGATIVE (NEGATIVE) Urine WBC (Auto) NONE (0-5) /HPF Urine RBC (Auto) NONE (0-2) /HPF U Epithel Cells (Auto) NONE (FEW) /HPF Urine Bacteria (Auto) NONE (NEGATIVE) /HPF Urine RBC NEGATIVE (0-5) Jason/ul Urine Mucus (Auto) SLIGHT (NEGATIVE) /HPF Ur Culture Indicated? NO Urine Glucose NEGATIVE (NEGATIVE) mg/dL - Progress Progress: improved Progress Note: 11/10/21 18:44 CAT scan of the abdomen pelvis without contrast shows no acute intra-abdominal or intrapelvic abnormality. There is been no change when compared to the CAT scan of the abdomen pelvis dated 10/02/2021. Counseled pt/family regarding: lab results, diagnosis, need for follow-up, rad results - Departure Departure Disposition: Home Clinical Impression: Hypertension, Abdominal pain Condition: Stable Critical Care Time: No Referrals: GUILLERMO CUEVA [Primary Care Provider] - Follow up/PCP as directed Additional Instructions: Take all your medications as prescribed. Follow-up with your primary care doctor on Sunday, November 14, 2021 for further evaluation and management.
[2021-11-10] MEDS ORDERED: Hydromorphone 1 mg/ml Injection IV ONE (17:05)
[2021-11-10] MEDS ORDERED: Zofran 4 MG/2 ML VIAL IV ONE (17:05)
[2021-11-10] MEDS ORDERED: Zofran 4 MG/2 ML VIAL ONE (17:08)
[2021-11-10] MEDS ORDERED: Sodium Chloride 0.9% 1000 ML 1,000 ML ONE (17:11)
[2021-11-10] MEDS ORDERED: Hydromorphone 1 mg/ml Injection ONE (17:11)
[2021-11-10] MEDS ORDERED: Sodium Chloride 0.9% 1000 ML 1,000 ML IV SCH (17:15)
[2021-11-10 17:32] LABS: Absolute Neutrophil Ct (ANC) 2.45 x10^3/uL (1.4-6.9); Basophil (Absolute #) 0.04 x10^3/uL (0-0.4); Eosinophil % 3.5 % (0.00-5.0); Eosinophil (Absolute #) 0.17 x10^3/uL (0-0.5); Hematocrit 37.1 % (35-47); Hemoglobin 11.5 g/dL (12.0-16.0); Lymphocytes % 35.3 % (24.0-44.0); Mean Cell Volume 85.9 fL (78-100); Mean Corpuscular Hemoglobin 26.6 pg (26-32); Mean Platelet Volume 10.5 fL (7.5-11.0); Monocyte (Absolute #) 0.44 x10^3/uL (0.0-1.3); Monocytes % 9.1 % (0.0-12.0); Neutrophil % 50.9 % (36.0-66.0); Platelet Count 135 x10^3/uL (150-450); Red Blood Count 4.32 x10^6/uL (4.1-5.4); Red Cell Distribution Width 15.3 % (11.5-14.0); White Blood Count 4.8 x10^3/uL (4.0-10.5)
[2021-11-10 17:35] LABS: ALKALINE PHOSPHATASE 127 U/L (38-126); AMYLASE 84 U/L (30-110); ANION GAP 15.4 MEQ/L (5-15); BLOOD UREA NITROGEN 10 mg/dL (7-17); CHLORIDE 107 mmol/L (98-107); Calcium 9.2 mg/dL (8.4-10.2); Carbon Dioxide 22 mmol/L (22-30); Creatinine 1 0.87 mg/dL (0.52-1.04); EST GLOMERULAR FILTRATION RATE > 60.0 ML/MIN; Glucose 133 mg/dL (74-106); LIPASE 119 U/L (23-300); Potassium 4.2 mmol/L (3.5-5.1); SGOT/AST 44 U/L (14-36); SGPT/ALT 18 U/L (0-35); SODIUM 140 mmol/L (137-145); Total Protein 8.3 g/dL (6.3-8.2)
[2021-11-10 18:02] LABS: Appearance CLEAR (CLEAR); Bilirubin NEGATIVE (NEGATIVE); Dipstick done @ ? MAIN LAB; Glucose NEGATIVE (NEGATIVE); Ketones NEGATIVE (NEGATIVE); Nitrite NEGATIVE (NEGATIVE); Protein,Urine Dip NEGATIVE (Negative); RBC NEGATIVE Ery/ul (0-5); Specific Gravity 1.015 (1.005-1.025); Urobilinogen 0.2 mg/dL (0-1)
[2021-11-10] MEDS ORDERED: ENALAPRILAT 2.5 MG INJECTION IV ONE ×2 (18:03→18:05)
[2021-11-10 18:04] LABS: Mucus SLIGHT /HPF (NEGATIVE); Urine Cultured Indicated? NO
[2021-11-10 18:05] VITALS: O2SAT 95
[2021-11-10 18:31] VITALS: BP 161/74; PULSE 68
--- NOTE | 2021-11-11 07:41 | XRAY ---
Indication: Chronic abdomen pain. Diverticulitis. Multiple contiguous axial images obtained through the abdomen and pelvis without contrast. Comparison: October 09, 2021. Lung bases again demonstrates bibasilar subsegmental atelectasis/scarring. Heart not enlarged. Stable small distal paraesophageal calcified node and small hiatal hernia. Stomach mildly distended with food. Noncontrasted stomach and bowel loops appear nonobstructed. Again mild diffuse colonic fecal debris throughout more than before. There remains scattered diverticulosis without diverticulitis. Again appendectomy, sigmoid resection, hysterectomy, and cholecystectomy. No free fluid/air. Again chronic findings including 21.6 cm cirrhotic liver, 14.5 cm splenomegaly, and mild scattered aortoiliac calcifications without AAA. Remaining pancreas, adrenal glands, kidneys, ureters, and bladder are unremarkable for noncontrast exam. Osseous structures intact again with mild osteopenia, mild/moderate degenerative changes throughout the thoracolumbar spine, and left lower back epidural stimulator device/leads. Impression: 1. Again mild diffuse fecal stasis, colonic diverticulosis, cirrhotic liver, hepatosplenomegaly, bibasilar atelectasis/scarring, small hiatal hernia, and chronic bony findings. 2. Remaining CT abdomen/pelvis without contrast exam is negative.
== END 2021-11-10 19:04 | disposition home or self-care (01) ==
LOC: ED 16:29
DX: R10.32 Left lower quadrant pain (principal); I11.0 Hypertensive heart disease with heart failure; E78.5 Hyperlipidemia, unspecified; J44.9 Chronic obstructive pulmonary disease, unspecified; I50.9 Heart failure, unspecified; E11.42 Type 2 diabetes mellitus with diabetic polyneuropathy; Z79.891 Long term (current) use of opiate analgesic; Z79.84 Long term (current) use of oral hypoglycemic drugs; Z79.899 Other long term (current) drug therapy
CPT/HCPCS: 36000; 36415; 74176; 80053; 81015; 82150; 83605; 83690; 85025; 87040; 96374; 96375; 99284; J1170; J2405

== ENCOUNTER 2023-12-10 07:06 | Emergency (ER) | payer MEDICARE ==
--- NOTE | 2023-12-10 07:27 | ERPHSYRPT ---
- History of Present Illness Allergies/Adverse Reactions: gabapentin Allergy (Severe, Verified 12/10/23 07:25) fluoxetine HCl [From Prozac] Allergy (Intermediate, Verified 12/10/23 07:25) Hives Latex, Natural Rubber Allergy (Mild, Verified 12/10/23 07:25) Hives Home Medications: ARIPiprazole [Aripiprazole] 5 mg DAILY 11/16/18 [History] Duloxetine HCl 60 mg PO DAILY 11/16/18 [History] Oxycodone / APAP 10/325 mg [Oxycodone-Acetaminophen 10-325] 1 tab PO TID 11/16/18 [History] Tizanidine HCl 4 mg PO DAILY 11/16/18 [History] Albuterol 8 gm Mdi Hfa [Ventolin Hfa MDI] 2 inh PO Q4H 12/05/19 [History] Aspirin EC 81 mg [Ecotrin 81 mg] 81 mg PO DAILY 12/05/19 [History] Atorvastatin Calcium [Lipitor] 40 mg PO DAILY 12/05/19 [History] Buspirone HCl [Buspar] 10 mg PO BID 12/05/19 [History] Dicyclomine HCl 20 mg [Bentyl 20 mg] 20 mg PO TID 12/05/19 [History] Hydroxychloroquine Sulfate 200 mg PO DAILY 12/05/19 [History] Lisinopril/Hydrochlorothiazide [Lisinopril-Hctz 20-12.5 mg Tab] 1 each PO DAILY 12/05/19 [History] Metformin HCl [Glucophage] 1,000 mg PO BID 12/05/19 [History] Montelukast Sodium 10 mg [Singulair 10 MG] 10 mg PO DAILY 12/05/19 [History] Omeprazole 20 mg PO DAILY 12/05/19 [History] Propranolol HCl [Propranolol HCl ER] 80 mg PO DAILY 12/05/19 [History] Ropinirole HCl [Requip] 0.5 - 1 tab PO DAILY 12/05/19 [History] Topiramate [Topamax] 100 mg PO BID 12/05/19 [History] Trazodone HCl 50 mg [Desyrel 50 mg] 25 mg PO DAILY 12/05/19 [History] Verapamil HCl [Verapamil ER] 120 mg PO DAILY 12/05/19 [History] hydrOXYzine pamoate [Hydroxyzine Pamoate] 25 mg PO DAILY 12/05/19 [History] Erenumab-Aooe [Aimovig Autoinjector] 70 mg SQ UD 05/13/21 [History] Glipizide [Glipizide ER] 5 mg PO DAILY 05/13/21 [History] Metformin HCl [Metformin ER Gastric] 1,000 mg PO BID 05/13/21 [History] Potassium Chloride [Klor-Con M20] 20 meq PO BID 05/13/21 [History] Pregabalin 150 mg PO DAILY 05/13/21 [History] Sildenafil Citrate [Sildenafil] 20 mg PO TID 05/13/21 [History] Hx Tetanus, Diphtheria Vaccination/Date Given: Yes Hx Influenza Vaccination/Date Given: Yes Hx Pneumococcal Vaccination/Date Given: No - Past Medical History Pertinent Past Medical History: Yes (sarcoidosis, migraine, hypoxia) Neurological History: Migraines, Peripheral Neuropathy ENT History: Other Cardiac History: Congestive Heart Failure, High Cholesterol, Hypertension, Myocardial Infarction ([place]) Respiratory History: Sleep Apnea Endocrine Medical History: Diabetes Type II, Other Musculoskeletal History: Osteoarthritis GI Medical History: Cirrhosis, Diverticulitis, Hernia, Irritable Bowel History: No Pertinent History Psycho-Social History: Anxiety, Depression Female Reproductive Disorders: Cervical Cancer Other Medical History: CIRRHOSIS OF LIVER, NEUROPATHY IN LEGS. DRUG INDUCED [place] FOLLOWIN A HYSTERECTOMY. PT HAS AN INTERNAL PAIN STIMULATOR AND IT IS CURRENTLY ACTIVE. PT HAS OA OF THE BACK. L HIP SPURS. - Past Surgical History Past Surgical History: Yes Neuro Surgical History: No Pertinent History Cardiac: No Pertinent History, Cardiac Catheterization Respiratory: No Pertinent History Gastrointestinal: Cholecystectomy, Hernia Repair Genitourinary: No Pertinent History Musculoskeletal: No Pertinent History Female Surgical History: Hysterectomy - Social History Smoking Status: Never smoker Exposure to second hand smoke: Yes Drug Use: none Patient Lives Alone: Yes - Departure Referrals: NEHAL SMITH NP [Primary Care Provider] - Follow up/PCP as directed
[2023-12-10 07:39] VITALS: TEMP 98
[2023-12-10 08:02] LABS: Absolute Neutrophil Ct (ANC) 1.88 x10^3/uL (1.56-6.13); BASOPHIL % 0.5 % (0.1-1.2); Basophil (Absolute #) 0.02 x10^3/uL (0.01-0.08); Eosinophil % 3.5 % (0.7-5.8); Eosinophil (Absolute #) 0.13 x10^3/uL (0.04-0.36); Hematocrit 30.8 % (34.1-44.9); Hemoglobin 9.2 g/dL (11.2-15.7); IMMATURE GRAN # 0.01 x10^3u/L (0.001-0.031); IMMATURE GRAN % 0.3 % (0.001-0.429); Lymphocyte (Absolute #) 1.21 x10^3/uL (1.18-3.74); Lymphocytes % 32.4 % (19.3-51.7); Mean Cell Volume 79.8 fL (79.4-94.8); Mean Corpuscular Hemoglobin 23.8 pg (25.6-32.2); Mean Corpuscular Hgb Concent. 29.9 g/dL (32.2-35.5); Mean Platelet Volume 10.6 fL (9.4-12.3); Monocyte (Absolute #) 0.48 x10^3/uL (0.24-0.86); Monocytes % 12.9 % (4.7-12.5); Neutrophil % 50.4 % (34.0-71.1); Platelet Count 134 x10^3/uL (182-369); Red Blood Count 3.86 x10^6/uL (3.93-5.22); Red Cell Distribution Width 16.8 % (11.7-14.4); White Blood Count 3.7 x10^3/uL (3.98-10.04)
[2023-12-10 08:15] LABS: ALBUMIN 3.8 g/dL (3.5-5.0); ANION GAP 13.6 MEQ/L (5-15); BILIRUBIN,TOTAL 0.3 mg/dL (0.2-1.3); Calcium 8.9 mg/dL (8.4-10.2); Creatinine 1 0.85 mg/dL (0.52-1.04); EST GLOMERULAR FILTRATION RATE 74.6 ML/MIN; Potassium 3.4 mmol/L (3.5-5.1); Total Protein 7.3 g/dL (6.3-8.2)
[2023-12-10 08:22] LABS: INFLUENZA A NEGATIVE (NEGATIVE); INFLUENZA B NEGATIVE (NEGATIVE); RESPIRATORY SYNCTIAL VIRUS NEGATIVE (NEGATIVE); SARS-CoV-2 Xpert Express NEGATIVE (NEGATIVE)
--- NOTE | 2023-12-10 08:24 | ERPHSYRPT ---
- History of Present Illness Time Seen by Provider: 12/10/23 07:10 Source: patient Exam Limitations: no limitations Patient Subjective Stated Complaint: C/O sore throat, swelling to BLE, SOB when lying flat. Triage Nursing Assessment: Patient ambulated back to ER. She is alert and oriented. Slight tremor noted to bilateral hands when handing nurse her medication bottles; patient indicates this is not new. No SOB noted at this time; patient reports it is only when she is lying down flat. No cough. Edema noted to BLE; legs/feet are tight. Dr. Doty in room to listen to lung sounds. Physician History: 68-year-old female with a history of CHF presents to the emergency department for evaluation of shortness of breath. Patient observes that her shortness of breath is worse when she lays flat and with exertion. Patient states she has been taking her Lasix as recommended. However and spite of her compliance her lower extremities have been swelling. No associated chest pain. Patient had that she has been experiencing a sore throat. Patient attributes her symptoms to her potassium medication. No other associated complaints. No nausea vomiting or diaphoresis. No diarrhea no rash no fever. Patient otherwise feels well. She voices no other complaints or concerns at this time. Portions of this note were created with voice recognition technology. There may be grammatical, spelling, punctuation or sound alike errors Timing/Duration: today Activities at Onset: activity Possible Cause: no prior episodes Modifying Factors: Improves With: activity Associated Symptoms: denies symptoms Allergies/Adverse Reactions: gabapentin Allergy (Severe, Verified 12/10/23 07:25) fluoxetine HCl [From Prozac] Allergy (Intermediate, Verified 12/10/23 07:25) Hives Latex, Natural Rubber Allergy (Mild, Verified 12/10/23 07:25) Hives Home Medications: ARIPiprazole [Aripiprazole] 10 mg PO DAILY 11/16/18 [History] Duloxetine HCl 60 mg PO BID 11/16/18 [History] Tizanidine HCl 4 mg PO Q8H PRN PRN 11/16/18 [History] Albuterol 8 gm Mdi Hfa [Ventolin Hfa MDI] 2 inh PO Q4H 12/05/19 [History] Atorvastatin Calcium [Lipitor] 40 mg PO DAILY 12/05/19 [History] Buspirone HCl [Buspar] 10 mg PO DAILY 12/05/19 [History] Hydroxychloroquine Sulfate 200 mg PO DAILY 12/05/19 [History] Montelukast Sodium 10 mg [Singulair 10 MG] 10 mg PO DAILY 12/05/19 [History] Trazodone HCl 50 mg [Desyrel 50 mg] 50 mg PO HS 12/05/19 [History] Sildenafil Citrate [Sildenafil] 20 mg PO TID 05/13/21 [History] Abatacept [Orencia] See Rx Instructions .ROUTE .COMPLEX 12/10/23 [History] Buspirone HCl 5 mg [Buspar 5 mg] 5 mg PO BID 12/10/23 [History] Docusate Sodium [Colace] 100 mg PO DAILY PRN 12/10/23 [History] Famotidine [Pepcid] 40 mg PO HS 12/10/23 [History] Ferrous Sulfate 325 mg [Feosol 325 mg] 325 mg PO DAILY 12/10/23 [History] Furosemide 20 mg [Lasix 20 mg] 20 mg PO DAILY 12/10/23 [History] Hydralazine HCl 10 mg PO TID 12/10/23 [History] Lisinopril 10 mg [Zestril 10 MG] 10 mg PO BID 12/10/23 [History] Metformin HCl [Metformin HCl ER] 1,000 mg PO BID 12/10/23 [History] Omeprazole 40 mg PO DAILY 12/10/23 [History] Oxycodone / APAP 10/325 mg [Oxycodone-Acetaminophen 10-325] 1 tab PO TID PRN 12/10/23 [History] Potassium Chloride [Klor-Con M20] 20 meq PO DAILY 12/10/23 [History] Promethazine HCl 25 mg PO Q8H PRN PRN 12/10/23 [History] Propranolol HCl [Propranolol HCl ER] 60 mg PO DAILY 12/10/23 [History] Propranolol HCl [Propranolol HCl ER] 160 mg PO DAILY 12/10/23 [History] Semaglutide [Ozempic] 0.5 mg SQ WEEKLY 12/10/23 [History] glipiZIDE [Glipizide ER] 10 mg PO BID 12/10/23 [History] Hx Tetanus, Diphtheria Vaccination/Date Given: Yes Hx Influenza Vaccination/Date Given: Yes Hx Pneumococcal Vaccination/Date Given: Yes Immunizations Up to Date: Yes Travel Risk - International Travel Have you traveled outside of the country in past 3 weeks: No - Emerging Infectious Disease Are you exhibiting symptoms associated with any current EIDs: Yes Symptoms: Shortness of Breath - Review of Systems Constitutional: No Symptoms, No Fever, No Chills Eyes: No Symptoms Ears, Nose, & Throat: No Symptoms Respiratory: No Symptoms, No Cough, No Dyspnea Cardiac: No Symptoms, No Chest Pain, No Edema, No Syncope Abdominal/Gastrointestinal: No Symptoms, No Abdominal Pain, No Nausea, No Vomiting, No Diarrhea Genitourinary Symptoms: No Symptoms, No Dysuria Musculoskeletal: No Symptoms, No Back Pain, No Neck Pain Skin: No Symptoms, No Rash Neurological: No Symptoms, No Dizziness, No Focal Weakness, No Sensory Changes Psychological: No Symptoms Endocrine: No Symptoms Hematologic/Lymphatic: No Symptoms Immunological/Allergic: No Symptoms All Other Systems: Reviewed and Negative - Past Medical History Pertinent Past Medical History: Yes (sarcoidosis, migraine, hypoxia) Neurological History: Migraines, Peripheral Neuropathy ENT History: Other Cardiac History: Congestive Heart Failure, High Cholesterol, Hypertension, Myocardial Infarction ([place]) Respiratory History: Sleep Apnea Endocrine Medical History: Diabetes Type II, Other Musculoskeletal History: Fibromyalgia, Osteoarthritis, Rheumatoid Arthritis GI Medical History: Cirrhosis, Diverticulitis, Hernia, Irritable Bowel History: No Pertinent History Psycho-Social History: Anxiety, Depression Female Reproductive Disorders: Cervical Cancer Other Medical History: Sepsis, Non-alcohol related cirrohsis, left hip spurs - Past Surgical History Past Surgical History: Yes Neuro Surgical History: No Pertinent History Cardiac: Cardiac Catheterization Respiratory: No Pertinent History Gastrointestinal: Appendectomy, Cholecystectomy, Colon Resection, Hernia Repair Genitourinary: No Pertinent History Musculoskeletal: No Pertinent History Female Surgical History: Hysterectomy Other Surgical History: pain stimulator in back - Social History Smoking Status: Never smoker Exposure to second hand smoke: No Drug Use: none Patient Lives Alone: Yes - Social Determinants of Health Will the patient participate in the screening: Yes Do you worry about a steady place to live?: No Do you have any problems with any of the following?: No known problems In the past 12 months,have you had to go without utilities?: No Transportation Issues: No Has anyone in your support network made you feel unsafe?: No Have you or anyone in your house had to go without enough: No - Nursing Vital Signs Nursing Vital Signs: Initial Vital Signs Temperature 98 F 12/10/23 07:07 Pulse Rate 60 12/10/23 07:07 Respiratory Rate 20 12/10/23 07:07 Blood Pressure 132/55 12/10/23 07:07 O2 Sat by Pulse Oximetry 97 12/10/23 07:07 Pain Scale Pain Intensity 5 - Physical Exam General Appearance: no apparent distress, alert Eye Exam: PERRL/EOMI, eyes nml inspection Ears, Nose, Throat Exam: hearing grossly normal, normal ENT inspection, normal pharynx Neck Exam: normal inspection, supple Respiratory Exam: normal breath sounds, lungs clear, airway intact, No respiratory distress Cardiovascular/Chest Exam: normal heart sounds, regular rate/rhythm Abdominal/Gastrointestinal Exam: soft, No tenderness, No distention, No mass Extremity Exam: non-tender, normal range of motion, normal inspection, no calf tenderness, pedal edema (2+ pitting edema) Neurologic Exam: alert, oriented x 3, cooperative, 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 II-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 nml as tested, sensation nml, No motor deficits Skin Exam: normal color, warm, No dry Lymphatic Exam: No adenopathy SpO2 Interpretation: normal SpO2: 95 O2 Delivery: Room Air - Course Nursing assessment & vital signs reviewed: Yes EKG Interpreted by Me: RATE (58), Sinus Rhythm, NORMAL AXIS, NORMAL INTERVALS, NORMAL QRS (Abnormal T waves lateral leads) - CT Exams Chest CT Interpretation: Tele-radiologist Report (Cardiomegaly, 3.3 x 2.7 cm mass at the level of the vocal cord splenomegaly) Ordered Tests: Active Orders 24 hr Category Date Time Status Design/Animation Instructor STAT Care 12/10/23 07:22 Completed EKG-ER Only STAT Care 12/10/23 07:21 Completed IV Insertion STAT Care 12/10/23 07:21 Completed Pulse Oximetry (ED) STAT Care 12/10/23 07:21 Completed CHEST 1 VIEW (PORTABLE) Stat Exams 12/10/23 07:22 Completed CHEST WITH CONTRAST [CT] Stat Exams 12/10/23 09:22 Completed CBC W DIFF Stat Lab 12/10/23 08:01 Completed CMP Stat Lab 12/10/23 08:01 Completed CULTURE,URINE Stat Lab 12/10/23 09:35 Received D-DIMER QUANTITATIVE Stat Lab 12/10/23 08:33 Completed NT PRO BNPII Stat Lab 12/10/23 08:01 Completed TROPONIN Q4H Lab 12/10/23 08:01 Completed TROPONIN Q4H Lab 12/10/23 10:30 Completed UA W/RFX UR CULTURE Stat Lab 12/10/23 09:35 Completed Medication Summary Discontinued Medications Generic Name Dose Route Start Last Admin Trade Name Freq PRN Reason Stop Dose Admin Ceftriaxone Sodium 1 gm in 100 mls @ 200 mls/hr 12/10/23 11:11 12/10/23 11:58 Rocephin 1 Gm / 100 Ml Nacl IV 12/10/23 11:40 Infused STAT ONE Infusion Ceftriaxone Sodium Confirm 12/10/23 11:13 Rocephin 1 Gm / 100 Ml Nacl Administered 12/10/23 11:14 Dose 1 gm in 100 mls @ ud IV .STK-MED ONE Morphine Sulfate 2 mg 12/10/23 12:31 12/10/23 12:38 Morphine Sulfate 2 Mg/Ml Inj IV 12/10/23 12:32 2 mg STAT ONE Administration Morphine Sulfate Confirm 12/10/23 12:34 Morphine Sulfate 2 Mg/Ml Inj Administered 12/10/23 12:35 Dose 2 mg .ROUTE .STK-MED ONE Oxycodone/Acetaminophen 1 tab 12/10/23 14:16 12/10/23 14:21 Oxycodone Hcl/Apap 5 Mg/325 Mg Tablet PO 12/10/23 14:17 1 tab STAT STA Administration Oxycodone/Acetaminophen Confirm 12/10/23 14:20 Oxycodone Hcl/Apap 5 Mg/325 Mg Tablet Administered 12/10/23 14:21 Dose 1 tab .ROUTE .STK-MED ONE Lab/Rad Data: Laboratory Result Diagrams 12/10/23 08:01 12/10/23 08:01 Laboratory Results 12/10/23 12/10/23 12/10/23 Range/Units 10:30 09:35 08:33 WBC (3.98-10.04) x10^3/uL RBC (3.93-5.22) x10^6/uL Hgb (11.2-15.7) g/dL Hct (34.1-44.9) % MCV (79.4-94.8) fL MCH (25.6-32.2) pg MCHC (32.2-35.5) g/dL RDW (11.7-14.4) % Plt Count (182-369) x10^3/uL MPV (9.4-12.3) fL Gran % (34.0-71.1) % Immature Gran % (Auto) (0.001-0.429) % Nucleat RBC Rel Count (0.00-0.2) % Eos # (Auto) (0.04-0.36) x10^3/uL Immature Gran # (Auto) (0.001-0.031) x10^3u/L Absolute Lymphs (auto) (1.18-3.74) x10^3/uL Absolute Monos (auto) (0.24-0.86) x10^3/uL Absolute Nucleated RBC (0.00-0.012) x10^3u/L Lymphocytes % (19.3-51.7) % Monocytes % (4.7-12.5) % Eosinophils % (0.7-5.8) % Basophils % (0.1-1.2) % Absolute Granulocytes (1.56-6.13) x10^3/uL Basophils # (0.01-0.08) x10^3/uL D-Dimer 3.62 H* (0.0-0.50) mg/L Sodium (135-145) mmol/L Potassium (3.5-5.1) mmol/L Chloride (98-107) mmol/L Carbon Dioxide (22-30) mmol/L Anion Gap (5-15) MEQ/L BUN (7-17) mg/dL Creatinine (0.52-1.04) mg/dL Estimated GFR ML/MIN Glucose (74-106) mg/dL Calcium (8.4-10.2) mg/dL Total Bilirubin (0.2-1.3) mg/dL AST (14-36) U/L ALT (0-35) U/L Alkaline Phosphatase (38-126) U/L Troponin I < 0.012 (0.000-0.033) ng/mL NT-Pro-B Natriuret Pep (<300) pg/mL Serum Total Protein (6.3-8.2) g/dL Albumin (3.5-5.0) g/dL Urine Color Yellow (Yellow) Urine Appearance Clear (Clear) Urine pH 6.0 (4.6-8.0) Ur Specific [place] 1.015 (1.005-1.030) Urine Protein Trace A (Negative) Urine Glucose (UA) Negative (Negative) mg/dL Urine Ketones Negative (Negative) Urine Blood Negative (Negative) Urine Nitrite Negative (Negative) Urine Bilirubin Negative (Negative) Urine Urobilinogen 1.0 A (0.2) mg/dL Ur Leukocyte Esterase Small A (Negative) U Hyaline Cast (Auto) NONE SEEN (0-2) /LPF Urine Microscopic RBC 0-2 (0-5) /HPF Urine Microscopic WBC 11-20 A (0-5) /HPF Ur Epithelial Cells Few (None Seen) /HPF Urine Bacteria None Seen (None Seen) /HPF Urine Culture Reflexed YES (NO) Influenza Type A Ag (NEGATIVE) Influenza Type B Ag (NEGATIVE) RSV (PCR) (NEGATIVE) SARS-CoV-2 (PCR) (NEGATIVE) Group A Strep Antibody (NEGATIVE) 12/10/23 12/10/23 12/10/23 Range/Units 08:01 08:01 08:01 WBC 3.7 L (3.98-10.04) x10^3/uL RBC 3.86 L (3.93-5.22) x10^6/uL Hgb 9.2 L (11.2-15.7) g/dL Hct 30.8 L (34.1-44.9) % MCV 79.8 (79.4-94.8) fL MCH 23.8 L (25.6-32.2) pg MCHC 29.9 L (32.2-35.5) g/dL RDW 16.8 H (11.7-14.4) % Plt Count 134 L (182-369) x10^3/uL MPV 10.6 (9.4-12.3) fL Gran % 50.4 (34.0-71.1) % Immature Gran % (Auto) 0.3 (0.001-0.429) % Nucleat RBC Rel Count 0.0 (0.00-0.2) % Eos # (Auto) 0.13 (0.04-0.36) x10^3/uL Immature Gran # (Auto) 0.01 (0.001-0.031) x10^3u/L Absolute Lymphs (auto) 1.21 (1.18-3.74) x10^3/uL Absolute Monos (auto) 0.48 (0.24-0.86) x10^3/uL Absolute Nucleated RBC 0.00 (0.00-0.012) x10^3u/L Lymphocytes % 32.4 (19.3-51.7) % Monocytes % 12.9 H (4.7-12.5) % Eosinophils % 3.5 (0.7-5.8) % Basophils % 0.5 (0.1-1.2) % Absolute Granulocytes 1.88 (1.56-6.13) x10^3/uL Basophils # 0.02 (0.01-0.08) x10^3/uL D-Dimer (0.0-0.50) mg/L Sodium 139 (135-145) mmol/L Potassium 3.4 L (3.5-5.1) mmol/L Chloride 103 (98-107) mmol/L Carbon Dioxide 26 (22-30) mmol/L Anion Gap 13.6 (5-15) MEQ/L BUN 7 (7-17) mg/dL Creatinine 0.85 (0.52-1.04) mg/dL Estimated GFR 74.6 ML/MIN Glucose 123 H (74-106) mg/dL Calcium 8.9 (8.4-10.2) mg/dL Total Bilirubin 0.30 (0.2-1.3) mg/dL AST 51 H (14-36) U/L ALT 21 (0-35) U/L Alkaline Phosphatase 74 (38-126) U/L Troponin I < 0.012 (0.000-0.033) ng/mL NT-Pro-B Natriuret Pep 328 (<300) pg/mL Serum Total Protein 7.3 (6.3-8.2) g/dL Albumin 3.8 (3.5-5.0) g/dL Urine Color (Yellow) Urine Appearance (Clear) Urine pH (4.6-8.0) Ur Specific [place] (1.005-1.030) Urine Protein (Negative) Urine Glucose (UA) (Negative) mg/dL Urine Ketones (Negative) Urine Blood (Negative) Urine Nitrite (Negative) Urine Bilirubin (Negative) Urine Urobilinogen (0.2) mg/dL Ur Leukocyte Esterase (Negative) U Hyaline Cast (Auto) (0-2) /LPF Urine Microscopic RBC (0-5) /HPF Urine Microscopic WBC (0-5) /HPF Ur Epithelial Cells (None Seen) /HPF Urine Bacteria (None Seen) /HPF Urine Culture Reflexed (NO) Influenza Type A Ag (NEGATIVE) Influenza Type B Ag (NEGATIVE) RSV (PCR) (NEGATIVE) SARS-CoV-2 (PCR) (NEGATIVE) Group A Strep Antibody (NEGATIVE) 12/10/23 12/10/23 Range/Units 07:40 07:40 WBC (3.98-10.04) x10^3/uL RBC (3.93-5.22) x10^6/uL Hgb (11.2-15.7) g/dL Hct (34.1-44.9) % MCV (79.4-94.8) fL MCH (25.6-32.2) pg MCHC (32.2-35.5) g/dL RDW (11.7-14.4) % Plt Count (182-369) x10^3/uL MPV (9.4-12.3) fL Gran % (34.0-71.1) % Immature Gran % (Auto) (0.001-0.429) % Nucleat RBC Rel Count (0.00-0.2) % Eos # (Auto) (0.04-0.36) x10^3/uL Immature Gran # (Auto) (0.001-0.031) x10^3u/L Absolute Lymphs (auto) (1.18-3.74) x10^3/uL Absolute Monos (auto) (0.24-0.86) x10^3/uL Absolute Nucleated RBC (0.00-0.012) x10^3u/L Lymphocytes % (19.3-51.7) % Monocytes % (4.7-12.5) % Eosinophils % (0.7-5.8) % Basophils % (0.1-1.2) % Absolute Granulocytes (1.56-6.13) x10^3/uL Basophils # (0.01-0.08) x10^3/uL D-Dimer (0.0-0.50) mg/L Sodium (135-145) mmol/L Potassium (3.5-5.1) mmol/L Chloride (98-107) mmol/L Carbon Dioxide (22-30) mmol/L Anion Gap (5-15) MEQ/L BUN (7-17) mg/dL Creatinine (0.52-1.04) mg/dL Estimated GFR ML/MIN Glucose (74-106) mg/dL Calcium (8.4-10.2) mg/dL Total Bilirubin (0.2-1.3) mg/dL AST (14-36) U/L ALT (0-35) U/L Alkaline Phosphatase (38-126) U/L Troponin I (0.000-0.033) ng/mL NT-Pro-B Natriuret Pep (<300) pg/mL Serum Total Protein (6.3-8.2) g/dL Albumin (3.5-5.0) g/dL Urine Color (Yellow) Urine Appearance (Clear) Urine pH (4.6-8.0) Ur Specific [place] (1.005-1.030) Urine Protein (Negative) Urine Glucose (UA) (Negative) mg/dL Urine Ketones (Negative) Urine Blood (Negative) Urine Nitrite (Negative) Urine Bilirubin (Negative) Urine Urobilinogen (0.2) mg/dL Ur Leukocyte Esterase (Negative) U Hyaline Cast (Auto) (0-2) /LPF Urine Microscopic RBC (0-5) /HPF Urine Microscopic WBC (0-5) /HPF Ur Epithelial Cells (None Seen) /HPF Urine Bacteria (None Seen) /HPF Urine Culture Reflexed (NO) Influenza Type A Ag NEGATIVE (NEGATIVE) Influenza Type B Ag NEGATIVE (NEGATIVE) RSV (PCR) NEGATIVE (NEGATIVE) SARS-CoV-2 (PCR) NEGATIVE (NEGATIVE) Group A Strep Antibody NOT DETECTED (NEGATIVE) - Progress Progress: improved Air Movement: good Progress Note: Case discussed with Dr. Isabel ENT physician at [facility] who accepts transfer at 12:43 PM 68-year-old female presents to our ED for evaluation of shortness of breath. Physical exam reveals bilateral lower extremity swelling. Lungs are clear. D- dimer positive. PE workup negative. 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 An abnormal EKG was observed. Initial troponin negative. Patient will require hospitalization for cardiac rule out further evaluation of the abnormal EKG as well as this newly found pharyngeal mass. We do not offer ENT services. Patient requested transfer. We contacted [facility]. They accept transfer at 12:43 PM. Patient reassessed she is resting comfortably. Vital stable. Plan of care discussed with patient. She agrees to transfer to [facility] for further evaluation and treatment. Portions of this note were created with voice recognition technology. There may be grammatical, spelling, punctuation or sound alike errors 12/10/23 12:50 12/10/23 12:57 I spoke to hospitalist from [facility] at [id number]. Patient accepted for t mercedsfer by Dr. Del Angel. Complexity problem addressed is moderate acute complicated. No critical care time. Complex of data reviewed and analyzed is extensive. Test ordered chest reviewed results analyzed and correlated clinically with history and physical exam. Management discussed with ENT Dr. Isabel and hospitalist Dr. Del Angel. Risk of complication and or risk of morbidity/mortality patient management is high. Patient requires hospitalization for further evaluation and treatment. Vital stable. Time spent to transfer patient is approximately 30 minutes. Plan of care established for shared decision making. No social determinants of health present impede follow-up. Portions of this note were created with voice recognition technology. There may be grammatical, spelling, punctuation or sound alike errors Blood Culture(s) Obtained: No Counseled pt/family regarding: lab results, diagnosis, need for follow-up - Departure Departure Disposition: Transfer Clinical Impression: Urinary tract infection, Leukopenia, Anemia, Thrombocytopenia, Cardiomegaly, Pharyngeal mass, Splenomegaly, Shortness of breath Condition: Stable Critical Care Time: No Referrals: NEHAL SMITH NP [Primary Care Provider] - Follow up/PCP as directed
[2023-12-10 08:27] LABS: NT PRO BNPII 328 pg/mL (<300); TROPONIN < 0.012 ng/mL (0.000-0.033)
--- NOTE | 2023-12-10 08:59 | XRAY ---
Indication: Short of breath. Comparison: December 04, 2023 Portable chest less inflated with new cardiomegaly. Right base subsegmental atelectasis/scarring grossly unchanged. Left lung remains clear. Bony thorax intact again with osteopenia, degenerative changes, and epidural leads.
[2023-12-10 09:46] LABS: Appearance Clear (Clear); Bacteria None Seen /HPF (None Seen); Bilirubin Negative (Negative); Blood Negative (Negative); Epithelial Cells Few /HPF (None Seen); Glucose, Urine Negative (Negative); Hyaline Casts NONE SEEN /LPF (0-2); Ketones Negative (Negative); Leukocyte Esterase Small (Negative); Nitrite Negative (Negative); Protein,Urine Dip Trace (Negative); RBC 0-2 /HPF (0-5); Specific Gravity 1.015 (1.005-1.030)
[2023-12-10 09:49] LABS: ADD URINE CULTURE? YES (NO)
--- NOTE | 2023-12-10 11:01 | XRAY ---
Indication: Short of breath. Elevated d-dimer. Multiple contiguous axial images obtained through the chest using 100 cc Isovue 370 contrast and PE protocol. Comparison: None Good opacification pulmonary arteries to include the lobar and segmental branches. Respiration artifact limits evaluation of the more distal lobar and segmental branches. No pulmonary embolus. Heart is borderline enlarged. Aorta is minimally arteriosclerotic without aneurysm/dissection. Small distal paraesophageal calcified node. No pathologic mediastinal/hilar lymphadenopathy. Incompletely visualized 3.3 x 2.7 cm soft tissue mass level of vocal cords. Lungs demonstrates bilateral mid to lower lung subsegmental atelectasis/scarring. No suspicious pulmonary mass/nodule, infiltrate, effusion, or pneumothorax. Bony thorax intact with osteopenia, mild degenerative changes throughout spine, and epidural leads terminating T7. Limited upper abdomen demonstrates cirrhotic appearing liver and 16.5 cm splenomegaly. Impression: 1. Pulmonary embolus evaluation limited by respiration artifact. No obvious pulmonary mass. 2. Borderline cardiomegaly. Negative for acute process or CHF. 3. Chronic findings including atelectasis/scarring, chronic bony findings, cirrhotic liver, and splenomegaly. 4. Incompletely visualized vocal cord mass. Direct laryngoscopy recommended.
[2023-12-10] MEDS ORDERED: ROCEPHIN 1 GM / 100 ML NaCl 1 GM/100 ML IVPB IV ONE (11:13)
[2023-12-10] MEDS: ROCEPHIN 1 GM / 100 ML NaCl 1 GM/100 ML IVPB IV ONE (11:14)
[2023-12-10] MEDS ORDERED: MORPHINE SULFATE 2 MG INJ ONE (12:34)
[2023-12-10] MEDS: MORPHINE SULFATE 2 MG INJ IV ONE (12:38)
[2023-12-10] MEDS ORDERED: PERCOCET TABLET 5/325MG ONE (14:20)
[2023-12-10] MEDS: PERCOCET TABLET 5/325MG PO STA (14:21)
[2023-12-10 14:29] VITALS: PULSE 67
[2023-12-10 15:03] VITALS: BP 211/98; RESP 26
[2023-12-11 00:29] VITALS: O2SAT 95
== END 2023-12-10 15:15 | disposition short-term general hospital (02) ==
LOC: ED 07:06
DX: N39.0 Urinary tract infection, site not specified (principal); D72.819 Decreased white blood cell count, unspecified; D64.9 Anemia, unspecified; D69.6 Thrombocytopenia, unspecified; I11.0 Hypertensive heart disease with heart failure; I50.9 Heart failure, unspecified; J39.2 Other diseases of pharynx; R16.1 Splenomegaly, not elsewhere classified; R06.02 Shortness of breath; E78.5 Hyperlipidemia, unspecified; E11.42 Type 2 diabetes mellitus with diabetic polyneuropathy; Z79.84 Long term (current) use of oral hypoglycemic drugs; Z79.891 Long term (current) use of opiate analgesic; Z79.85 Long-term (current) use of injectable non-insulin antidiabetic drugs; Z79.899 Other long term (current) drug therapy
CPT/HCPCS: 0241U; 36000; 36415; 71045; 71260; 80053; 81001; 83880; 84484; 85025; 85379; 87086; 87651; 93005; 93041; 94760; 99285; J0696; J2270; A9270-GY